=== PATIENT | male | born 1950 | race Caucasian/White ===

== ENCOUNTER 2017-10-06 14:20 | Inpatient (IN) | payer MEDICARE ==
--- NOTE | 2017-10-06 15:14 | EDM.PDOC ---
ED HPI GENERAL MEDICAL PROBLEM - General Chief Complaint: Lower Extremity Injury/Pain Stated Complaint: RIGHT LEG PAIN Time Seen by Provider: 10/06/17 15:13 Source of Information: Reports: Patient History Limitations: Reports: No Limitations - History of Present Illness INITIAL COMMENTS - FREE TEXT/NARRATIVE: pt had a open heart done on Sep 25. His left leg has been swollen and he is super sensitive at the ankle level. He has been feeling lite headed sob and very weak. he has noted some black tarry stools present. Onset: Gradual Duration: Day(s):, Waxing/Waning Location: Reports: Lower Extremity, Left Associated Symptoms: Reports: Malaise, Shortness of Breath, Other ( some epigastric pain. He has been quite dizzy. ) 4 Pain Score (Numeric/FACES): 0 - Related Data Allergies Allergy/AdvReac Type Severity Reaction Status Date / Time No Known Allergies Allergy Verified 10/06/17 14:32 Home Meds: Home Meds Lisinopril 10 mg PO DAILY 01/04/15 [History] Aspirin [Halfprin] 81 mg PO DAILY 07/05/17 [History] Clopidogrel [Plavix] 75 mg PO DAILY 07/05/17 [History] Nitroglycerin [Nitrostat] 0.4 mg SL ASDIRECTED PRN 07/05/17 [History] Albuterol Sulfate [Ventolin Hfa] 2 puff INH Q4HR PRN 10/06/17 [History] Amiodarone [Cordarone] 1 tab PO DAILY 10/06/17 [History] Clopidogrel Bisulfate [Clopidogrel] 1 tab PO DAILY 10/06/17 [History] Hydrocodone/Acetaminophen [Hydrocodon-Acetaminophn 10-325] 1 tab PO Q4HR PRN [History] Metoclopramide HCl 1 tab PO DAILY 10/06/17 [History] Metoprolol Tartrate [Metoprolol Tartrate] 1 tab PO DAILY 10/06/17 [History] Past Medical History Respiratory History: Reports: COPD, Pneumothorax - Past Surgical History Cardiovascular Surgical History: Reports: Coronary Artery Bypass, Coronary Artery Stent Musculoskeletal Surgical History: Reports: Arthroscopic Knee, Shoulder Surgery Social & Family History - Tobacco Use Smoking Status *Q: Never Smoker Years of Tobacco use: 40 - Alcohol Use Days Per Week of Alcohol Use: 0 - Recreational Drug Use Recreational Drug Use: No Review of Systems - Review of Systems Review Of Systems: See Below Constitutional: Reports: No Symptoms Eyes: Reports: No Symptoms Ears: Reports: No Symptoms Nose: Reports: No Symptoms Mouth/Throat: Reports: No Symptoms Respiratory: Reports: Shortness of Breath Cardiovascular: Reports: Lightheadedness, Palpitations GI/Abdominal: Reports: No Symptoms Genitourinary: Reports: No Symptoms Musculoskeletal: Reports: No Symptoms, Other ( pain in left leg and super sensitive at the left ankle level. ) Skin: Reports: No Symptoms Neurological: Reports: No Symptoms Psychiatric: Reports: No Symptoms ED EXAM, GENERAL - Physical Exam Exam: See Below Free Text/Narrative:: Pt is pale and has alot of weakness. He is sob. Exam Limited By: No Limitations General Appearance: Alert, Anxious, Mild Distress Ears: Normal TMs Nose: Normal Inspection Throat/Mouth: Normal Inspection Head: Atraumatic Neck: Normal Inspection Respiratory/Chest: No Respiratory Distress Cardiovascular: Regular Rate, Rhythm, Tachycardia GI/Abdominal: Soft, Tender, Other ( Pt has mild tenderness in the epigastric area. ) (Male) Exam: Deferred Rectal (Males) Exam: Deferred Back Exam: Normal Inspection Extremities: Other ( left leg shows mild swelling and he is uper sensitive at the ankle level. ) Neurological: Alert, Oriented, Normal Cognition Psychiatric: Normal Affect Course - Vital Signs Last Recorded V/S: Last Vital Signs Temp 36.4 C 10/07/17 01:56 Pulse 68 10/06/17 14:45 Resp 19 10/07/17 06:00 BP 116/38 L 10/07/17 06:00 Pulse Ox 93 L 10/07/17 06:00 - Orders/Labs/Meds Orders: Active Orders 24 hr Category Date Time Status Chest 2V [CR] Stat Exams 10/06/17 15:11 Taken VL Duplex Lwr Ext Veins Ltd Lt [US] Stat Exams 10/06/17 16:18 Stop Req VL Duplex Lwr Ext Veins Ltd Rt [US] Stat Exams 10/06/17 15:12 Taken BLOOD BANK HOLD SPECIMEN [BBK] Stat Lab 10/06/17 15:20 Results PATIENT RETYPE [BBK] Stat Lab 10/06/17 15:20 Results RED BLOOD CELLS LP [BBK] Stat Lab 10/06/17 15:20 Results TYPE AND SCREEN [BBK] Stat Lab 10/06/17 15:20 Results Pantoprazole [ProTONIX IV] 80 mg Med 10/06/17 18:00 Active Sodium Chloride 0.9% [Normal Saline] 100 ml IV ASDIRECTED Medication Orders Acetaminophen (Tylenol) 650 mg PO Q4H PRN PRN Reason: Pain (Mild 1-3)/fever Hydrocodone Bitart/Acetaminophen ([place] 325-5 Mg) 2 tab PO Q4H PRN PRN Reason: Pain (moderate 4-6) Albuterol (Ventolin Hfa) 0 gm INH Q4H PRN PRN Reason: Shortness of Breath Albuterol (Proventil Neb Soln) 2.5 mg NEB Q4H PRN PRN Reason: Shortness Of Breath/wheezing Last Admin: 10/07/17 04:47 Dose: 2.5 mg Admin: 10/07/17 04:20 Dose: 2.5 mg Amiodarone HCl (Cordarone) 200 mg PO DAILY [facility] Aspirin (Halfprin) 81 mg PO DAILY [facility] Clopidogrel Bisulfate (Plavix) 75 mg PO DAILY [facility] Pantoprazole Sodium 80 mg/ (Sodium Chloride) 100 mls @ 10 mls/hr IV ASDIRECTED [facility] Stop: 10/07/17 14:00 Last Admin: 10/07/17 04:33 Dose: 10 mls/hr Infusion: 10/07/17 04:33 Dose: 10 mls/hr Admin: 10/06/17 18:39 Dose: 10 mls/hr Sodium Chloride (Normal Saline) 1,000 mls @ 125 mls/hr IV ASDIRECTED [facility] Last Admin: 10/07/17 04:23 Dose: 125 mls/hr Infusion: 10/07/17 04:23 Dose: 125 mls/hr Admin: 10/06/17 20:26 Dose: 125 mls/hr Pantoprazole Sodium 80 mg/ (Sodium Chloride) 100 mls @ 10 mls/hr IV .Q10H [facility] Lorazepam (Ativan) 0.5 mg IVPUSH Q2H PRN PRN Reason: Anxiety Last Admin: 10/06/17 22:28 Dose: 0.5 mg Admin: 10/06/17 20:27 Dose: 0.5 mg Metoclopramide HCl (Reglan) 10 mg PO DAILY [facility] Metoprolol Tartrate (Lopressor) 50 mg PO DAILY [facility] Nitroglycerin (Nitrostat) 0.4 mg SL Q5M PRN PRN Reason: Chest Pain Ondansetron HCl (Zofran) 4 mg IV Q4H PRN PRN Reason: Nausea/Vomiting Sodium Chloride (Saline Flush) 10 ml FLUSH ASDIRECTED PRN PRN Reason: Keep Vein Open Labs: Laboratory Tests 10/06/17 10/06/17 10/06/17 Range/Units 15:20 15:22 15:22 WBC 12.7 H (4.5-11.0) K/uL RBC 1.91 L (4.30-5.90) M/uL Hgb 6.4 L* D (12.0-15.0) g/dL Hct 20.5 L (40.0-54.0) % MCV 107 H (80-98) fL MCH 34 H (27-31) pg MCHC 31 L (32-36) % Plt Count 340 (150-400) K/uL Neut % (Auto) 66 (36-66) % Lymph % (Auto) 18 L (24-44) % [place] % (Auto) 13 H (2-6) % Eos % (Auto) 4 (2-4) % Baso % (Auto) 0 (0-1) % Sodium 137 L (140-148) mmol/L Potassium 4.0 (3.6-5.2) mmol/L Chloride 103 (100-108) mmol/L Carbon Dioxide 28 (21-32) mmol/L Anion Gap 10.0 (5.0-14.0) mmol/L BUN 18 (7-18) mg/dL Creatinine 1.3 (0.8-1.3) mg/dL Est Cr Clr Drug Dosing 62.18 mL/min Estimated GFR (MDRD) 55 L (>60) Glucose 122 H (74-106) mg/dL Calcium 8.2 L (8.5-10.1) mg/dL Blood Type O POSITIVE Gel Antibody Screen Negative Crossmatch See Detail Meds: Medications Generic Name Dose Route Start Last Admin Trade Name Freq PRN Reason Stop Dose Admin Acetaminophen 650 mg 10/06/17 19:02 Tylenol PO Q4H PRN Pain (Mild 1-3)/fever Hydrocodone Bitart/Acetaminophen 2 tab 10/06/17 19:02 [place] 325-5 Mg PO Q4H PRN Pain (moderate 4-6) Albuterol 0 gm 10/06/17 19:02 Ventolin Hfa INH Q4H PRN Shortness of Breath Albuterol 2.5 mg 10/06/17 19:02 10/07/17 04:47 Proventil Neb Soln NEB 2.5 mg Q4H PRN Administration Shortness Of Breath/wheezing Amiodarone HCl 200 mg 10/07/17 09:00 Cordarone PO DAILY [facility] Aspirin 81 mg 10/07/17 09:00 Halfprin PO DAILY [facility] Clopidogrel Bisulfate 75 mg 10/07/17 09:00 Plavix PO DAILY [facility] Pantoprazole Sodium 80 mg/ 100 mls @ 10 mls/hr 10/06/17 18:00 10/07/17 04:33 Sodium Chloride IV 10/07/17 14:00 10 mls/hr ASDIRECTED HARESH Administration Sodium Chloride 1,000 mls @ 125 mls/hr 10/06/17 19:02 10/07/17 04:23 Normal Saline IV 125 mls/hr ASDIRECTED [facility] Administration Pantoprazole Sodium 80 mg/ 100 mls @ 10 mls/hr 10/07/17 14:30 Sodium Chloride IV .Q10H [facility] Lorazepam 0.5 mg 10/06/17 20:12 10/06/17 22:28 Ativan IVPUSH 0.5 mg Q2H PRN Administration Anxiety Metoclopramide HCl 10 mg 10/07/17 09:00 Reglan PO DAILY [facility] Metoprolol Tartrate 50 mg 10/07/17 09:00 Lopressor PO DAILY [facility] Nitroglycerin 0.4 mg 10/06/17 19:02 Nitrostat SL Q5M PRN Chest Pain Ondansetron HCl 4 mg 10/06/17 19:02 Zofran IV Q4H PRN Nausea/Vomiting Sodium Chloride 10 ml 10/06/17 19:02 Saline Flush FLUSH ASDIRECTED PRN Keep Vein Open Discontinued Medications Generic Name Dose Route Start Last Admin Trade Name Freq PRN Reason Stop Dose Admin Sodium Chloride 1,000 mls @ 500 mls/hr 10/06/17 17:30 10/06/17 18:22 Normal Saline IV 500 mls/hr ASDIRECTED HARESH Administration Pantoprazole Sodium 40 mg 10/06/17 17:25 10/06/17 18:22 Protonix Iv IVPUSH 10/06/17 17:26 40 mg ONETIME ONE Administration Pantoprazole Sodium 40 mg 10/06/17 18:00 10/06/17 18:22 Protonix Iv IVPUSH 10/06/17 18:01 Not Given ONETIME ONE - Re-Assessments/Exams Free Text/Narrative Re-Assessment/Exam: 10/06/17 17:54 pt had an US of his left leg which was neg. His hg was found to be 6.4. His stool hemmocult was pos. He has not been having regular bms since he got home. His chest xray shows chronic changes. Departure - Departure Time of Disposition: 17:55 Disposition: Admitted As Inpatient 68 Condition: Fair Clinical Impression: Anemia, GI bleeding, History of open heart surgery - Discharge Information - My Orders Last 24 Hours: My Active Orders 10/06/17 15:11 Chest 2V [CR] Stat 10/06/17 15:12 VL Duplex Lwr Ext Veins Ltd Rt [US] Stat 10/06/17 15:20 BLOOD BANK HOLD SPECIMEN [BBK] Stat PATIENT RETYPE [BBK] Stat RED BLOOD CELLS LP [BBK] Stat TYPE AND SCREEN [BBK] Stat 10/06/17 16:18 VL Duplex Lwr Ext Veins Ltd Lt [US] Stat - Assessment/Plan Last 24 Hours: My Active Orders 10/06/17 15:11 Chest 2V [CR] Stat 10/06/17 15:12 VL Duplex Lwr Ext Veins Ltd Rt [US] Stat 10/06/17 15:20 BLOOD BANK HOLD SPECIMEN [BBK] Stat PATIENT RETYPE [BBK] Stat RED BLOOD CELLS LP [BBK] Stat TYPE AND SCREEN [BBK] Stat 10/06/17 16:18 VL Duplex Lwr Ext Veins Ltd Lt [US] Stat
[2017-10-06] MEDS ORDERED: Sodium Chloride 0.9% 1,000 ML IV SCH (17:30)
[2017-10-06] MEDS ORDERED: Pantoprazole 40 MG Vial IVPUSH ONE (18:00)
[2017-10-06] MEDS: Pantoprazole 40 MG Vial IVPUSH ONE ×2 (18:21→18:22)
[2017-10-06] MEDS: Pantoprazole 80 MG in Sodium Chloride 0.9% 100 ML IV SCH (18:39)
--- NOTE | 2017-10-06 18:55 | PCM.HP ---
H&P History of Present Illness - General Date of Service: 10/06/17 Admit Problem/Dx: Admission Diagnosis/Problem Admission Diagnosis/Problem Bleeding Source of Information: Patient, Family, Provider, RN Notes Reviewed History Limitations: Reports: No Limitations - History of Present Illness Initial Comments - Free Text/Narative: This patient is a 67-year-old gentleman who is admitted through the emergency department to the intensive care unit with upper GI bleed and acute blood loss anemia. He underwent coronary artery bypass surgery 11 days ago in [place]. Postoperative course complicated by pneumothorax. He was discharged to home 2 days ago and since then has noted ongoing difficulty with weakness, shortness of breath, and lightheadedness. He's noted upper abdominal epigastric discomfort described as an ache. He has been on Plavix and aspirin even prior to his surgery. He denies any prior history of GI bleeding or previous ulcer disease. - Related Data Allergies/Adverse Reactions: Allergies Allergy/AdvReac Type Severity Reaction Status Date / Time No Known Allergies Allergy Verified 10/06/17 14:32 Home Medications: Home Meds Lisinopril 10 mg PO DAILY 01/04/15 [History] Aspirin [Halfprin] 81 mg PO DAILY 07/05/17 [History] Clopidogrel [Plavix] 75 mg PO DAILY 07/05/17 [History] Nitroglycerin [Nitrostat] 0.4 mg SL ASDIRECTED PRN 07/05/17 [History] Albuterol Sulfate [Ventolin Hfa] 2 puff INH Q4HR PRN 10/06/17 [History] Amiodarone [Cordarone] 1 tab PO DAILY 10/06/17 [History] Clopidogrel Bisulfate [Clopidogrel] 1 tab PO DAILY 10/06/17 [History] Hydrocodone/Acetaminophen [Hydrocodon-Acetaminophn 10-325] 1 tab PO Q4HR PRN [History] Metoclopramide HCl 1 tab PO DAILY 10/06/17 [History] Metoprolol Tartrate [Metoprolol Tartrate] 1 tab PO DAILY 10/06/17 [History] Past Medical History Respiratory History: Reports: COPD, Pneumothorax - Past Surgical History Cardiovascular Surgical History: Reports: Coronary Artery Bypass, Coronary Artery Stent Musculoskeletal Surgical History: Reports: Arthroscopic Knee, Shoulder Surgery Social & Family History - Tobacco Use Smoking Status *Q: Never Smoker Years of Tobacco use: 40 - Alcohol Use Days Per Week of Alcohol Use: 0 - Recreational Drug Use Recreational Drug Use: No H&P Review of Systems - Review of Systems: Review Of Systems: See Below General: Reports: Weakness, Decreased Appetite. Denies: Fever, Chills HEENT: Reports: No Symptoms Pulmonary: Reports: Shortness of Breath. Denies: Wheezing, Pleuritic Chest Pain , Cough, Sputum, Hemoptysis Cardiovascular: Reports: Dyspnea on Exertion, Lightheadedness. Denies: Chest Pain, Palpitations, Orthopnea, PND, Edema, Syncope Gastrointestinal: Reports: Abdominal Pain, Black Stool, Decreased Appetite, Nausea. Denies: Bloody Stool, Constipation, Diarrhea, Difficulty Swallowing, Distension, Vomiting Genitourinary: Reports: No Symptoms Musculoskeletal: Reports: Leg Pain. Denies: Back Pain Skin: Reports: No Symptoms Psychiatric: Reports: No Symptoms Neurological: Reports: No Symptoms Hematologic/Lymphatic: Reports: No Symptoms Immunologic: Reports: No Symptoms Exam - Exam Exam: See Below - Vital Signs Vital Signs: Last Vital Signs Temp 97.9 F 10/06/17 14:45 Pulse 68 10/06/17 14:45 Resp 14 10/06/17 14:45 BP 99/46 L 10/06/17 14:45 Pulse Ox 95 10/06/17 14:45 Weight: 220 lb - Exam Quality Assessment: DVT Prophylaxis General: Alert, Oriented, Cooperative, Moderate Distress HEENT: Conjunctiva Clear, Hearing Intact, Mucosa Moist & [place], Normal Nasal Septum, Posterior Pharynx Clear, Pupils Equal Neck: Supple, Trachea Midline, +2 Carotid Pulse wo Bruit Lungs: Normal Respiratory Effort, Decreased Breath Sounds. No: Crackles, Rales , Rhonchi, Rub, Stridor, Wheezing Cardiovascular: Regular Rate, Regular Rhythm, Normal S1, Normal S2. No: Systolic Murmur, Diastolic Murmur GI/Abdominal Exam: Normal Bowel Sounds, Soft, No Organomegaly, Tender. No: Distended, Guarding, Rigid, Rebound Back Exam: Normal Inspection, Full Range of Motion Extremities: Non-Tender, No Pedal Edema Skin: Warm, Dry, Intact Neurological: Cranial Nerves Intact, Strength Equal Bilateral, Normal Speech, Normal Tone, Sensation Intact. No: Focal Deficit Neuro Extensive - Mental Status: Alert, Oriented x3, Normal Mood/Affect, Normal Cognition, Memory Intact - Patient Data Lab Results Last 24 hrs: Laboratory Results - last 24 hr 10/06/17 10/06/17 10/06/17 Range/Units 15:20 15:22 15:22 WBC 12.7 H (4.5-11.0) K/uL RBC 1.91 L (4.30-5.90) M/uL Hgb 6.4 L* D (12.0-15.0) g/dL Hct 20.5 L (40.0-54.0) % MCV 107 H (80-98) fL MCH 34 H (27-31) pg MCHC 31 L (32-36) % Plt Count 340 (150-400) K/uL Neut % (Auto) 66 (36-66) % Lymph % (Auto) 18 L (24-44) % [place] % (Auto) 13 H (2-6) % Eos % (Auto) 4 (2-4) % Baso % (Auto) 0 (0-1) % Sodium 137 L (140-148) mmol/L Potassium 4.0 (3.6-5.2) mmol/L Chloride 103 (100-108) mmol/L Carbon Dioxide 28 (21-32) mmol/L Anion Gap 10.0 (5.0-14.0) mmol/L BUN 18 (7-18) mg/dL Creatinine 1.3 (0.8-1.3) mg/dL Est Cr Clr Drug Dosing 62.18 mL/min Estimated GFR (MDRD) 55 L (>60) Glucose 122 H (74-106) mg/dL Calcium 8.2 L (8.5-10.1) mg/dL Blood Type O POSITIVE Gel Antibody Screen Negative Crossmatch See Detail Result Diagrams: 10/06/17 15:22 10/06/17 15:22 Luiz Results Last 24 hrs: Microbiology 10/06/17 17:12 Stool Occult Blood (LUIZ) - Final Stool / Feces *Q Meaningful Use (ADM) - VTE *Q VTE Criteria *Q: VTE Pharmacological Contraindications *Q: Active Hemorrhage - VTE Risk Assess *Q Each Risk Factor Represents 1 Point: Obesity ( BMI > 25 kg/m2) Total Score 1 Point Risk Factors: 1 Each Risk Factor Represents 2 Points: Age 60 - 74 Years Total Score 2 Point Risk Factors: 2 Each Risk Factor Represents 3 Points: None Total Score 3 Point Risk Factors: 0 Each Risk Factor Represents 5 Points: None Total Score 5 Point Risk Factors: 0 Venous Thromboembolism Risk Factor Score *Q: 3 - Stroke *Q Stroke Criteria *Q: - AMI *Q AMI Criteria *Q: Problem List Initiated/Reviewed/Updated: Yes Orders Last 24hrs: Active Orders 24 hr Category Date Time Status Patient Status Manage Transfer [TRANSFER] Routine ADT 10/06/17 18:34 Active Chest 2V [CR] Stat Exams 10/06/17 15:11 Taken VL Duplex Lwr Ext Veins Ltd Lt [US] Stat Exams 10/06/17 16:18 Ordered VL Duplex Lwr Ext Veins Ltd Rt [US] Stat Exams 10/06/17 15:12 Taken BLOOD BANK HOLD SPECIMEN [BBK] Stat Lab 10/06/17 15:20 Results PATIENT RETYPE [BBK] Stat Lab 10/06/17 15:20 Results RED BLOOD CELLS LP [BBK] Stat Lab 10/06/17 15:20 Results TYPE AND SCREEN [BBK] Stat Lab 10/06/17 15:20 Results Pantoprazole [ProTONIX IV] 80 mg Med 10/06/17 18:00 Active Sodium Chloride 0.9% [Normal Saline] 100 ml IV ASDIRECTED Sodium Chloride 0.9% [Normal Saline] 1,000 ml Med 10/06/17 17:30 Active IV ASDIRECTED Resuscitation Status Routine Resus Stat 10/06/17 18:36 Ordered Medication Orders Sodium Chloride (Normal Saline) 1,000 mls @ 500 mls/hr IV ASDIRECTED [facility] Last Admin: 10/06/17 18:22 Dose: 500 mls/hr Pantoprazole Sodium 80 mg/ (Sodium Chloride) 100 mls @ 10 mls/hr IV ASDIRECTED [facility] Last Admin: 10/06/17 18:39 Dose: 10 mls/hr Assessment/Plan Comment:: ASSESSMENT AND PLAN UPPER GI BLEED-history of melenic stool over the past several days, likely related to stress ulcer from recent hospitalization and surgery. -Nothing by mouth -Protonix 80 mg IV given in ED -Continuous infusion of Protonix 8 mg per hour -Transfuse 2 units of red blood cells -Maintain 2 units of red blood cells on hold -Maintain 2 IV sites -IV fluids for hydration -Consult Dr. Alvarez for EGD in a.m. -Continue aspirin and Plavix given recent bypass surgery ACUTE BLOOD LOSS ANEMIA CORONARY ARTERY DISEASE STATUS POST CORONARY ARTERY BYPASS SURGERY-currently denies any symptoms of chest pain or pressure -Continue outpatient medical regimen COPD-stable with no evidence of acute exacerbation -Nebulized albuterol as needed -Supplemental oxygen as needed MAINTENANCE ISSUES -DVT prophylaxis; SCUDs, hold on anticoagulation given active bleed -GI prophylaxis; Protonix as above -Acevedo catheter; not indicated -Nutrition; nothing by mouth -Nicotine dependence; not required CODE STATUS-FULL CODE ADMISSION STATUS-patient will be admitted to inpatient status, expect at least a 2 night hospital stay for evaluation and management of problems as outlined above. At the time of this admission I do not reasonably expected evaluation and management of this problem will require more than a 96 hour hospital stay. DISPOSITION-anticipate discharge to home after the hospital stay. PRIMARY CARE PROVIDER-
[2017-10-06] MEDS ORDERED: Albuterol 8 GM Inhaler INH PRN (19:02)
[2017-10-06] MEDS ORDERED: Acetaminophen/HYDROcodone 325-5 MG Tab PO PRN (19:02)
[2017-10-06] MEDS ORDERED: Sodium Chloride 0.9% 10 ML Syringe FLUSH PRN (19:02)
[2017-10-06] MEDS ORDERED: Nitroglycerin 0.4 MG Tab.SL SL PRN (19:02)
[2017-10-06] MEDS ORDERED: Acetaminophen 325 MG Tab PO PRN (19:02)
[2017-10-06] MEDS ORDERED: Ondansetron 4 MG/2 ML SDV IV PRN (19:02)
[2017-10-06] MEDS: Sodium Chloride 0.9% 1,000 ML IV SCH (20:26)
[2017-10-06] MEDS: LORazepam 2 MG/ML MDV IVPUSH PRN ×2 (20:27→22:28)
[2017-10-07] MEDS: Albuterol 0.083% 2.5 MG/3 ML Neb Soln NEB PRN ×2 (04:20→04:47)
[2017-10-07] MEDS: Sodium Chloride 0.9% 1,000 ML IV SCH (04:23)
[2017-10-07] MEDS: Pantoprazole 80 MG in Sodium Chloride 0.9% 100 ML IV SCH (04:33)
[2017-10-07] MEDS ORDERED: Midazolam 1 MG/ML 2 ML SDV ONE (07:21)
[2017-10-07] MEDS ORDERED: fentaNYL 100 MCG/2 ML SDV ONE (07:21)
[2017-10-07] MEDS ORDERED: Propofol 200 MG/20 ML SDV ONE (07:22)
[2017-10-07] MEDS ORDERED: Metoprolol Tartrate 50 MG Tab PO SCH (09:00)
[2017-10-07] MEDS ORDERED: Aspirin 81 MG Tab.EC PO SCH (09:00)
[2017-10-07] MEDS ORDERED: Metoclopramide 10 MG Tab PO SCH (09:00)
[2017-10-07] MEDS ORDERED: Amiodarone 200 MG Tab PO SCH (09:00)
[2017-10-07] MEDS ORDERED: Clopidogrel 75 MG Tab PO SCH (09:00)
[2017-10-07] MEDS ORDERED: Nystatin Susp 100,000 Unit/ML 5 ML UD Cup PO SCH (10:00)
[2017-10-07 11:52] VITALS: BP 92/49
--- NOTE | 2017-10-07 13:24 | PCM.DCSUM1 ---
Discharge Summary - Hospital Course Brief History: Mr. Hill is a 67-year-old gentleman who is admitted through the emergency department with weakness, fatigue, and shortness of breath secondary to anemia related to recent upper GI bleed. - Discharge Data Discharge Date: 10/07/17 Discharge Disposition: Home, Self-Care 01 Condition: Fair - Discharge Diagnosis/Problem(s) (1) Acute blood loss anemia SNOMED Code(s): 771841014 ICD Code: D62 - ACUTE POSTHEMORRHAGIC ANEMIA Status: Acute Current Visit : Yes (2) Duodenal ulcer SNOMED Code(s): 05305888 ICD Code: K26.9 - DUODENAL ULCER, UNSP ACUTE OR CHRONIC, W/O HEMOR OR PERF Status: Acute Current Visit: Yes (3) Upper GI hemorrhage SNOMED Code(s): 93171875 ICD Code: K92.2 - GASTROINTESTINAL HEMORRHAGE, UNSPECIFIED Status: Acute Current Visit: Yes (4) Coronary arteriosclerosis, CAD SNOMED Code(s): 47920187 ICD Code: I25.10 - ATHSCL HEART DISEASE OF [place] CORONARY ARTERY W/O ANG PCTRS Status: Chronic Current Visit: No (5) Candidal esophagitis SNOMED Code(s): 74927457 ICD Code: B37.81 - CANDIDAL ESOPHAGITIS Status: Acute Current Visit: Yes - Patient Summary/Data Consults: Consultations 10/06/17 19:02 Consult to Physician [CONS] Routine Consulting Provider: Hugh Alvarezesy Call Completed to Consulting Physician: Yes Reason for Consult: Upper GI bleed, EGD in a.m. Hospital Course: Mr. Hill is a 67-year-old gentleman who presented to the emergency room with a recent history of weakness, shortness of breath, lightheadedness. he had undergone coronary artery bypass surgery approximately 11 days prior to admission, hospital course was complicated by a left pneumothorax. Prior to admission he had noted melenic stools and then developed symptoms of significant weakness and lightheadedness. Appetite was poor and he was experiencing symptoms of epigastric abdominal discomfort. Hemoglobin level was obtained and found to be severely low at 6.4. He was felt to have a probable recent upper GI bleed resulting in low hemoglobin and current symptoms. He denied symptoms of chest pain or pressure at the time of admission. He was given 80 mg bolus of IV Protonix followed by continuous infusion of Protonix at 8 mg per hour. He was given IV fluids for hydration and transfused 2 units of red blood cells. 2 IV sites were started and maintained during the hospital stay. Serial hemoglobin levels were ordered, follow-up hemoglobin after transfusion had increased to 7.6 and he was transfused one additional unit of red blood cells. He was seen for surgical consult Dr. Alvarez on the morning after admission and it EGD was performed. EGD showed evidence of a duodenal ulcer as well as candidal esophagitis. He was started on nystatin 5 mL every 6 hours. Was recommended to the patient that he stay at least one additional day for further monitoring and follow-up of hemoglobin levels. He refused this recommendation and asked to be discharged following the EGD. Last hemoglobin level obtained prior to discharge was 9.4. He will be discharged on the nystatin as well as oral Protonix 40 mg twice daily. He already has a follow-up appointment pending with Dr. Woodward at [facility] in [facility]. Follow-up appointment will be scheduled with his primary care provider Dianelys multani within a few days, hemoglobin level should be obtained at the time of follow-up appointments. Activity will be as tolerated he is encouraged to follow mainly liquid diet over the next few days and then switch to soft low residue food. Instructions were given to avoid caffeine as well as acidic foods. - Patient Instructions Diet: No Alcoholic Beverages, GI Soft/Low Residue/Low Fiber Activity: As Tolerated Other/Special Instructions: Please schedule follow-up appointment with Dianelys Multani within one week. - Discharge Plan Prescriptions/Med Rec: Nystatin [Mycostatin] 5 ml PO QID #200 ml Pantoprazole Sodium [Protonix] 40 mg PO BID #30 tablet. Home Medications: Home Meds Lisinopril 10 mg PO DAILY 01/04/15 [History] Aspirin [Halfprin] 81 mg PO DAILY 07/05/17 [History] Clopidogrel [Plavix] 75 mg PO DAILY 07/05/17 [History] Nitroglycerin [Nitrostat] 0.4 mg SL ASDIRECTED PRN 07/05/17 [History] Albuterol Sulfate [Ventolin Hfa] 2 puff INH Q4HR PRN 10/06/17 [History] Amiodarone [Cordarone] 1 tab PO DAILY 10/06/17 [History] Clopidogrel Bisulfate [Clopidogrel] 1 tab PO DAILY 10/06/17 [History] Hydrocodone/Acetaminophen [Hydrocodon-Acetaminophn 10-325] 1 tab PO Q4HR PRN [History] Metoclopramide HCl 1 tab PO DAILY 10/06/17 [History] Metoprolol Tartrate 1 tab PO DAILY 10/06/17 [History] Nystatin [Mycostatin] 5 ml PO QID #200 ml 10/07/17 [Rx] Pantoprazole Sodium [Protonix] 40 mg PO BID #30 tablet. 10/07/17 [Rx] Forms: ED Department Discharge Referrals: Nat Woodward MD [Primary Care Provider] - - Patient Data Vitals - Most Recent: Last Vital Signs Temp 98.6 F 10/07/17 11:46 Pulse 58 L 10/07/17 11:46 Resp 18 10/07/17 11:46 BP 92/49 L 10/07/17 11:46 Pulse Ox 94 L 10/07/17 11:46 Weight - Most Recent: 223 lb 12.8 oz I&O - Last 24 hours: Intake & Output 10/06/17 10/07/17 10/07/17 22:59 06:59 14:59 Intake Total 120 2614 Output Total 350 325 Balance 120 2264 -325 Lab Results - Last 24 hrs: Laboratory Results - last 24 hr 10/06/17 10/07/17 10/07/17 Range/Units 23:35 04:30 04:30 WBC 10.5 (4.5-11.0) K/uL RBC 2.75 L (4.30-5.90) M/uL Hgb 7.6 L 8.9 L (12.0-15.0) g/dL Hct 26.9 L (40.0-54.0) % MCV 98 (80-98) fL MCH 32 H (27-31) pg MCHC 33 (32-36) % Plt Count 297 (150-400) K/uL Neut % (Auto) 66 (36-66) % Lymph % (Auto) 21 L (24-44) % [place] % (Auto) 10 H (2-6) % Eos % (Auto) 4 (2-4) % Baso % (Auto) 0 (0-1) % Sodium 141 (140-148) mmol/L Potassium 3.8 (3.6-5.2) mmol/L Chloride 107 (100-108) mmol/L Carbon Dioxide 27 (21-32) mmol/L Anion Gap 6.7 (5.0-14.0) mmol/L BUN 14 (7-18) mg/dL Creatinine 1.2 (0.8-1.3) mg/dL Est Cr Clr Drug Dosing 65.36 mL/min Estimated GFR (MDRD) > 60 (>60) Glucose 100 (74-106) mg/dL Calcium 7.6 L (8.5-10.1) mg/dL 10/07/17 Range/Units 11:00 WBC (4.5-11.0) K/uL RBC (4.30-5.90) M/uL Hgb 9.4 L (12.0-15.0) g/dL Hct (40.0-54.0) % MCV (80-98) fL MCH (27-31) pg MCHC (32-36) % Plt Count (150-400) K/uL Neut % (Auto) (36-66) % Lymph % (Auto) (24-44) % [place] % (Auto) (2-6) % Eos % (Auto) (2-4) % Baso % (Auto) (0-1) % Sodium (140-148) mmol/L Potassium (3.6-5.2) mmol/L Chloride (100-108) mmol/L Carbon Dioxide (21-32) mmol/L Anion Gap (5.0-14.0) mmol/L BUN (7-18) mg/dL Creatinine (0.8-1.3) mg/dL Est Cr Clr Drug Dosing mL/min Estimated GFR (MDRD) (>60) Glucose (74-106) mg/dL Calcium (8.5-10.1) mg/dL Med Orders - Current: Current Medications Acetaminophen (Tylenol) 650 mg PO Q4H PRN PRN Reason: Pain (Mild 1-3)/fever Hydrocodone Bitart/Acetaminophen ([place] 325-5 Mg) 2 tab PO Q4H PRN PRN Reason: Pain (moderate 4-6) Albuterol (Ventolin Hfa) 0 gm INH Q4H PRN PRN Reason: Shortness of Breath Albuterol (Proventil Neb Soln) 2.5 mg NEB Q4H PRN PRN Reason: Shortness Of Breath/wheezing Last Admin: 10/07/17 04:47 Dose: 2.5 mg Amiodarone HCl (Cordarone) 200 mg PO DAILY [facility] Last Admin: 10/07/17 10:06 Dose: 200 mg Aspirin (Halfprin) 81 mg PO DAILY [facility] Last Admin: 10/07/17 10:08 Dose: 81 mg Clopidogrel Bisulfate (Plavix) 75 mg PO DAILY [facility] Last Admin: 10/07/17 10:08 Dose: 75 mg Pantoprazole Sodium 80 mg/ (Sodium Chloride) 100 mls @ 10 mls/hr IV ASDIRECTED [facility] Stop: 10/07/17 14:00 Last Admin: 10/07/17 04:33 Dose: 10 mls/hr Pantoprazole Sodium 80 mg/ (Sodium Chloride) 100 mls @ 10 mls/hr IV .Q10H [facility] Lorazepam (Ativan) 0.5 mg IVPUSH Q2H PRN PRN Reason: Anxiety Last Admin: 10/06/17 22:28 Dose: 0.5 mg Metoclopramide HCl (Reglan) 10 mg PO DAILY [facility] Last Admin: 10/07/17 10:07 Dose: 10 mg Metoprolol Tartrate (Lopressor) 50 mg PO DAILY [facility] Last Admin: 10/07/17 10:06 Dose: 50 mg Nitroglycerin (Nitrostat) 0.4 mg SL Q5M PRN PRN Reason: Chest Pain Nystatin (Mycostatin) 5 ml PO QID [facility] Last Admin: 10/07/17 11:15 Dose: 5 ml Ondansetron HCl (Zofran) 4 mg IV Q4H PRN PRN Reason: Nausea/Vomiting Sodium Chloride (Saline Flush) 10 ml FLUSH ASDIRECTED PRN PRN Reason: Keep Vein Open Discontinued Medications Fentanyl (Sublimaze) Confirm Administered Dose 100 mcg .ROUTE .ST-MED ONE Stop: 10/07/17 07:22 Sodium Chloride (Normal Saline) 1,000 mls @ 500 mls/hr IV ASDIRECTED [facility] Last Admin: 10/06/17 18:22 Dose: 500 mls/hr Sodium Chloride (Normal Saline) 1,000 mls @ 125 mls/hr IV ASDIRECTED [facility] Last Admin: 10/07/17 04:23 Dose: 125 mls/hr Midazolam HCl (Versed 1 Mg/Ml) Confirm Administered Dose 2 mg .ROUTE .STK-MED ONE Stop: 10/07/17 07:22 Pantoprazole Sodium (Protonix Iv) 40 mg IVPUSH ONETIME ONE Stop: 10/06/17 17:26 Last Admin: 10/06/17 18:22 Dose: 40 mg Pantoprazole Sodium (Protonix Iv) 40 mg IVPUSH ONETIME ONE Stop: 10/06/17 18:01 Last Admin: 10/06/17 18:22 Dose: Not Given Propofol (Diprivan 20 Ml) Confirm Administered Dose 200 mg .ROUTE .STK-MED ONE Stop: 10/07/17 07:23 *Q Meaningful Use (DIS) - VTE *Q VTE Criteria *Q: VTE Pharmacological Contraindications *Q: Active Hemorrhage - Stroke *Q Stroke Criteria *Q: - AMI *Q AMI Criteria *Q:
[2017-10-07] MEDS ORDERED: Sodium Chloride 0.9% 100 ML with Pantoprazole 80 MG IV SCH ×2 (14:30)
--- NOTE | 2017-10-08 09:20 | CR ---
Chest 2V HISTORY: Shortness of breath COMPARISON: 01/04/2015. FINDINGS: Prior median sternotomy. There is hyperinflation. Tiny bilateral pleural effusions. No acut e congestive change. Mild cardiomegaly. No focal infiltrates.
--- NOTE | 2017-10-08 09:21 | US ---
VL Duplex Lwr Ext Veins Ltd Rt HISTORY: Pain, swelling. FINDINGS: The deep veins of the right lower extremity demonstrate normal augmentation and compressibi lity. No evidence for deep venous thrombosis. IMPRESSION: Normal lower extremity venous Doppler study.
--- NOTE | 2017-10-08 13:40 | OR ---
DATE OF PROCEDURE: 10/07/2017 PREOPERATIVE DIAGNOSIS: Probable upper gastrointestinal bleeding. POSTOPERATIVE DIAGNOSES: 1. Probable recent upper gastrointestinal bleeding associated with large duodenal ulcer. 2. Esophageal fungal overgrowth. OPERATIVE PROCEDURE: Esophagogastroduodenoscopy with biopsies of antrum for CLOtest. ANESTHESIA: IV sedation. INDICATIONS FOR PROCEDURE: A 67-year-old, who is 12 days status post coronary artery bypass graft, presenting with some black stools and hemoglobin in the 6 range. The patient received 3 units of packed RBCs overnight and is undergoing upper endoscopy for diagnostic purposes. Potential risks including bleeding and perforation were discussed, and the patient wishes to proceed. DETAILS OF PROCEDURE: The patient was taken to the operating room and placed in the left lateral decubitus position. IV sedation was administered, after which the upper GI endoscope was passed orally through the length of the esophagus, into the stomach, and then into the proximal duodenum. Findings included some generalized fungal overgrowth within the esophageal body and extending down into the EG junction. Otherwise, there is no significant esophagogastric junction inflammation. The stomach likewise had very minimal inflammation even in the pre- pyloric area; however, as one passed through the pylorus, the patient was noted to have a quite large anterior duodenal ulcer. This was presently covered with fibrinous exudate with no blood or active bleeding seen, and at that point, the scope was withdrawn back into the antrum, where biopsies were obtained for CLOtest for H. pylori. No significant bleeding was noted from the biopsy site, and the scope was then withdrawn and the patient taken to the recovery room in satisfactory condition. The plan will be to continue the PPI management per Dr. Nobles. We will also add Mycostatin swish and swallow 5 mL p.o. q.i.d. for the fungal overgrowth within the esophagus, and begin a full liquid diet and advancing to soft solids as tolerated. Hugh Alvarez MD /[id number]
== END 2017-10-07 14:17 | disposition home or self-care (01) | DRG 378 ==
LOC: JP.ED 14:20 → JP.ICU 18:34
PROVIDERS: ADMIT Hospitalist; ATTEND Hospitalist
PROC: 30233N1 Transfusion of Nonautologous Red Blood Cells into Peripheral Vein, Percutaneous Approach (ICD-10-PCS; principal; 2017-10-06)
PROC: 0DB68ZX Excision of Stomach, Via Natural or Artificial Opening Endoscopic, Diagnostic (ICD-10-PCS; 2017-10-07)
DX: K92.2 Gastrointestinal hemorrhage, unspecified (principal); D62 Acute posthemorrhagic anemia; B37.81 Candidal esophagitis; I25.10 Atherosclerotic heart disease of native coronary artery without angina pectoris; R53.1 Weakness; M79.605 Pain in left leg; R42 Dizziness and giddiness; J44.9 Chronic obstructive pulmonary disease, unspecified; K26.9 Duodenal ulcer, unspecified as acute or chronic, without hemorrhage or perforation; Z95.1 Presence of aortocoronary bypass graft; Z95.5 Presence of coronary angioplasty implant and graft; Z79.82 Long term (current) use of aspirin
CPT/HCPCS: 36415; 71020 ×2; 80048; 82272; 85025; 86850; 86900; 86901; 86920 ×2; 86922 ×2; 93971 ×2; 96374; 99285; C9113 ×2; J7040; 36430; 85018; 87081; 99284; A9270-GY; J2060; J2250; J2704; J3010; J7030; P9016

== ENCOUNTER 2017-11-26 11:44 | Inpatient (IN) | payer MEDICARE ==
[2017-11-26] MEDS ORDERED: Albuterol/Ipratropium 3.0-0.5 MG/3 ML Neb Soln NEB ONE (12:06)
--- NOTE | 2017-11-26 12:15 | EDM.PDOC ---
ED HPI GENERAL MEDICAL PROBLEM - General Chief Complaint: Respiratory Problem Stated Complaint: SHORTNESS OF BREATH Time Seen by Provider: 11/26/17 11:50 Source of Information: Reports: Patient, Family History Limitations: Reports: No Limitations - History of Present Illness INITIAL COMMENTS - FREE TEXT/NARRATIVE: 67-year-old male who had open heart surgery 2 months ago and has been struggling with intermittent shortness of breath ever since. He caught a cold over the past week which is made worse, and over the last 48 hours he's become very wheezy, and not responding to his duo nebs. He denies any chest pain. No fevers or chills. He arrived fairly dyspneic with increased respiratory effort but O2 saturations in the low 90s without O2. Onset: Gradual Severity: Moderate Associated Symptoms: Reports: Cough, Malaise, Shortness of Breath. Denies: Chest Pain, Fever/Chills denies Pain Score (Numeric/FACES): 0 - Related Data Allergies Allergy/AdvReac Type Severity Reaction Status Date / Time No Known Allergies Allergy Verified 11/26/17 11:54 Home Meds: Home Meds Aspirin [Halfprin] 81 mg PO DAILY 07/05/17 [History] Clopidogrel [Plavix] 75 mg PO DAILY 07/05/17 [History] Nitroglycerin [Nitrostat] 0.4 mg SL ASDIRECTED PRN 07/05/17 [History] Albuterol Sulfate [Ventolin Hfa] 2 puff INH Q4HR PRN 10/06/17 [History] Metoprolol Tartrate 1 tab PO BID 10/06/17 [History] Pantoprazole Sodium [Protonix] 40 mg PO BID #30 tablet.dr 10/07/17 [Rx] Albuterol/Ipratropium [DuoNeb 3.0-0.5 MG/3 ML] 1 unit INH Q4H 11/26/17 [History] Budesonide/Formoterol Fumarate [Symbicort 160-4.5 Mcg Inhaler] 2 puff INH BID [History] Simvastatin [Zocor] 40 mg PO BEDTIME 11/26/17 [History] Past Medical History Cardiovascular History: Reports: Hypertension Respiratory History: Reports: COPD, Pneumothorax Gastrointestinal History: Reports: GI Bleed - Past Surgical History Cardiovascular Surgical History: Reports: Coronary Artery Bypass, Coronary Artery Stent Musculoskeletal Surgical History: Reports: Shoulder Surgery Social & Family History - Tobacco Use Smoking Status *Q: Unknown Ever Smoked Years of Tobacco use: 40 Used Tobacco, but Quit: Yes Month Tobacco Last Used: september Second Hand Smoke Exposure: No - Caffeine Use Caffeine Use: Reports: Coffee - Alcohol Use Days Per Week of Alcohol Use: 0 - Recreational Drug Use Recreational Drug Use: No ED ROS GENERAL - Review of Systems Review Of Systems: See Below Constitutional: Denies: Fever, Chills Respiratory: Reports: Shortness of Breath, Cough. Denies: Sputum Cardiovascular: Denies: Chest Pain GI/Abdominal: Denies: Abdominal Pain, Nausea, Vomiting Skin: Reports: No Symptoms Neurological: Denies: Headache ED EXAM, GENERAL - Physical Exam Exam: See Below Exam Limited By: No Limitations General Appearance: Alert, Mild Distress (Increase to respiratory effort) Respiratory/Chest: Respiratory Distress (Mild respiratory distress with increased effort), Decreased Breath Sounds (Diffuse decreased breath sounds), Wheezing (Diffuse inspiratory and expiratory wheezing) Cardiovascular: Regular Rate, Rhythm. No: Tachycardia, Extra Beats GI/Abdominal: Other (Abdomen is obese, nontender) Extremities: Normal Inspection. No: Pedal Edema Neurological: Alert, Oriented Psychiatric: Anxious Skin Exam: Warm, Dry Course - Vital Signs Last Recorded V/S: Last Vital Signs Temp 96.4 F 11/28/17 07:32 Pulse 86 11/28/17 07:32 Resp 20 11/28/17 07:32 BP 130/72 11/28/17 07:32 Pulse Ox 95 11/28/17 07:32 - Orders/Labs/Meds Orders: Medication Orders Acetaminophen (Tylenol) 650 mg PO Q4H PRN PRN Reason: Pain (Mild 1-3)/fever Albuterol (Ventolin Hfa) 0 gm INH Q4H PRN PRN Reason: Shortness of Breath Last Admin: 11/27/17 16:34 Dose: 2 puff Admin: 11/27/17 10:10 Dose: 2 puff Albuterol (Proventil Neb Soln) 2.5 mg NEB Q4H PRN PRN Reason: Dyspnea Last Admin: 11/28/17 02:33 Dose: 2.5 mg Albuterol/Ipratropium (Duoneb 3.0-0.5 Mg/3 Ml) 3 ml NEB QIDRT [facility] Last Admin: 11/27/17 21:11 Dose: 3 ml Admin: 11/27/17 14:58 Dose: 3 ml Admin: 11/27/17 10:59 Dose: 3 ml Admin: 11/27/17 10:28 Dose: Aspirin (Halfprin) 81 mg PO DAILY [facility] Last Admin: 11/27/17 08:22 Dose: 81 mg Clopidogrel Bisulfate (Plavix) 75 mg PO DAILY [facility] Last Admin: 11/27/17 08:22 Dose: 75 mg Docusate Sodium (Colace) 100 mg PO BID PRN PRN Reason: Constipation Enoxaparin Sodium (Lovenox) 40 mg SUBCUT Q24H [facility] Last Admin: 11/27/17 18:09 Dose: 40 mg Admin: 11/26/17 17:02 Dose: 40 mg Levofloxacin/Dextrose 500 mg/ (Premix) 100 mls @ 100 mls/hr IV Q24H [facility] Last Admin: 11/27/17 18:09 Dose: 100 mls/hr Infusion: 11/26/17 18:01 Dose: 100 mls/hr Admin: 11/26/17 17:01 Dose: 100 mls/hr Magnesium Hydroxide (Milk Of Magnesia) 30 ml PO Q12H PRN PRN Reason: Constipation Methylprednisolone Sodium Succinate (Solu-Medrol) 40 mg IVPUSH Q6H [facility] Last Admin: 11/28/17 07:26 Dose: 40 mg Admin: 11/28/17 02:25 Dose: 40 mg Admin: 11/27/17 19:55 Dose: 40 mg Admin: 11/27/17 15:19 Dose: 40 mg Admin: 11/27/17 08:22 Dose: 40 mg Admin: 11/27/17 01:59 Dose: 40 mg Admin: 11/26/17 20:44 Dose: 40 mg Metoprolol Tartrate (Lopressor) 50 mg PO BID [facility] Last Admin: 11/27/17 21:12 Dose: 50 mg Admin: 11/27/17 08:22 Dose: 50 mg Admin: 11/26/17 20:45 Dose: 50 mg Mometasone Furoate/Formoterol Fumar (Dulera 200-5 Mcg) 2 puff IH BIDRT [facility] Last Admin: 11/28/17 07:24 Dose: 2 inhaler Admin: 11/27/17 21:11 Dose: 2 inhaler Admin: 11/27/17 07:55 Dose: 2 inhaler Admin: 11/26/17 20:44 Dose: 2 inhaler Nitroglycerin (Nitrostat) 0.4 mg SL ASDIRECTED PRN PRN Reason: Chest Pain Ondansetron HCl (Zofran) 4 mg IV Q4H PRN PRN Reason: Nausea/Vomiting Oxycodone HCl (Oxycodone) 5 mg PO Q4H PRN PRN Reason: Pain (moderate 4-6) Last Admin: 11/26/17 20:54 Dose: 5 mg Pantoprazole Sodium (Protonix) 40 mg PO DAILY@729 [facility] Pantoprazole Sodium (Protonix) 80 mg PO DAILY@729 [facility] Stop: 12/09/17 07:31 Last Admin: 11/28/17 07:23 Dose: 80 mg Admin: 11/27/17 08:21 Dose: 80 mg Admin: 11/26/17 17:01 Dose: 80 mg Polyethylene Glycol (Miralax) 17 gm PO DAILY PRN PRN Reason: Constipation Simvastatin (Zocor) 40 mg PO BEDTIME [facility] Last Admin: 11/27/17 21:16 Dose: 40 mg Admin: 11/26/17 20:48 Dose: 40 mg Sodium Chloride (Saline Flush) 10 ml FLUSH ASDIRECTED PRN PRN Reason: Keep Vein Open Labs: Laboratory Tests 11/26/17 11/26/17 Range/Units 12:15 12:15 WBC 6.9 (4.5-11.0) K/uL RBC 4.41 (4.30-5.90) M/uL Hgb 12.5 D (12.0-15.0) g/dL Hct 40.0 (40.0-54.0) % MCV 91 (80-98) fL MCH 28 (27-31) pg MCHC 31 L (32-36) % Plt Count 202 (150-400) K/uL Neut % (Auto) 70 H (36-66) % Lymph % (Auto) 21 L (24-44) % [place] % (Auto) 8 H (2-6) % Eos % (Auto) 0 L (2-4) % Baso % (Auto) 1 (0-1) % Sodium 141 (140-148) mmol/L Potassium 4.1 (3.6-5.2) mmol/L Chloride 103 (100-108) mmol/L Carbon Dioxide 26 (21-32) mmol/L Anion Gap 12.0 (5.0-14.0) mmol/L BUN 14 (7-18) mg/dL Creatinine 1.1 (0.8-1.3) mg/dL Est Cr Clr Drug Dosing 71.31 mL/min Estimated GFR (MDRD) > 60 (>60) Glucose 159 H (74-106) mg/dL Calcium 8.7 (8.5-10.1) mg/dL Total Bilirubin 0.5 (0.2-1.0) mg/dL AST 23 (15-37) U/L ALT 24 (12-78) U/L Alkaline Phosphatase 92 (46-116) U/L Troponin I 0.020 (0.000-0.056) ng/mL Total Protein 7.1 (6.4-8.2) g/dL Albumin 3.3 L (3.4-5.0) g/dL Globulin 3.8 H (2.3-3.5) g/dL Albumin/Globulin Ratio 0.9 L (1.2-2.2) Meds: Medications Generic Name Dose Route Start Last Admin Trade Name Freq PRN Reason Stop Dose Admin Acetaminophen 650 mg 11/26/17 15:46 Tylenol PO Q4H PRN Pain (Mild 1-3)/fever Albuterol 0 gm 11/26/17 15:46 11/27/17 16:34 Ventolin Hfa INH 2 puff Q4H PRN Administration Shortness of Breath Albuterol 2.5 mg 11/27/17 10:06 11/28/17 02:33 Proventil Neb Soln NEB 2.5 mg Q4H PRN Administration Dyspnea Albuterol/Ipratropium 3 ml 11/27/17 10:00 11/27/17 21:11 Duoneb 3.0-0.5 Mg/3 Ml NEB 3 ml QIDRT [facility] Administration Aspirin 81 mg 11/27/17 09:00 11/27/17 08:22 Halfprin PO 81 mg DAILY [facility] Administration Clopidogrel Bisulfate 75 mg 11/27/17 09:00 11/27/17 08:22 Plavix PO 75 mg DAILY [facility] Administration Docusate Sodium 100 mg 11/26/17 15:46 Colace PO BID PRN Constipation Enoxaparin Sodium 40 mg 11/26/17 17:00 11/27/17 18:09 Lovenox SUBCUT 40 mg Q24H [facility] Administration Levofloxacin/Dextrose 500 mg/ 100 mls @ 100 mls/hr 11/26/17 17:00 11/27/17 18 :09 Premix IV 100 mls/hr Q24H [facility] Administration Magnesium Hydroxide 30 ml 11/26/17 15:46 Milk Of Magnesia PO Q12H PRN Constipation Methylprednisolone Sodium Succinate 40 mg 11/26/17 20:00 11/28/17 07:26 Solu-Medrol IVPUSH 40 mg Q6H [facility] Administration Metoprolol Tartrate 50 mg 11/26/17 21:00 11/27/17 21:12 Lopressor PO 50 mg BID [facility] Administration Mometasone Furoate/Formoterol Fumar 2 puff 11/26/17 21:00 11/28/17 07:24 Dulera 200-5 Mcg IH 2 inhaler BIDRT [facility] Administration Nitroglycerin 0.4 mg 11/26/17 15:46 Nitrostat SL ASDIRECTED PRN Chest Pain Ondansetron HCl 4 mg 11/26/17 15:46 Zofran IV Q4H PRN Nausea/Vomiting Oxycodone HCl 5 mg 11/26/17 15:46 11/26/17 20:54 Oxycodone PO 5 mg Q4H PRN Administration Pain (moderate 4-6) Pantoprazole Sodium 40 mg 12/10/17 07:30 Protonix PO DAILY@0730 [facility] Pantoprazole Sodium 80 mg 11/26/17 16:30 11/28/17 07:23 Protonix PO 12/09/17 07:31 80 mg DAILY@0730 [facility] Administration Polyethylene Glycol 17 gm 11/26/17 15:46 Miralax PO DAILY PRN Constipation Simvastatin 40 mg 11/26/17 21:00 11/27/17 21:16 Zocor PO 40 mg BEDTIME [facility] Administration Sodium Chloride 10 ml 11/26/17 15:46 Saline Flush FLUSH ASDIRECTED PRN Keep Vein Open Discontinued Medications Generic Name Dose Route Start Last Admin Trade Name Freq PRN Reason Stop Dose Admin Albuterol/Ipratropium 3 ml 11/26/17 12:06 11/26/17 12:14 Duoneb 3.0-0.5 Mg/3 Ml NEB 11/26/17 12:07 3 ml ONETIME ONE Administration Sodium Chloride 1,000 mls @ 125 mls/hr 11/26/17 15:46 11/27/17 00:04 Normal Saline IV 125 mls/hr ASDIRECTED [facility] Administration Methylprednisolone Sodium Succinate 125 mg 11/26/17 13:01 11/26/17 13:22 Solu-Medrol IVPUSH 11/26/17 13:02 125 mg ONETIME ONE Administration - Re-Assessments/Exams Free Text/Narrative Re-Assessment/Exam: 11/26/17 12:15 A DuoNeb was given, a two-view chest x-ray obtained and labs drawn for CBC, CMP and troponin. 11/26/17 13:08 Chest x-ray showed stable chronic findings, no acute infiltrate. Influenza antigens were negative. CBC showed a normal white count, CMP was reassuring and troponin was negative. The DuoNeb did help objectively and his O2 saturations have improved into the low 90s but subjectively he still has to exert extra effort and he still has marked inspiratory and expiratory wheezing present. An IV was started, the patient was given 125 mg of Solu-Medrol IV and I discussed his case with Dr. Nobles and he is going to see the patient and assess him for possible admission. Departure - Departure Time of Disposition: 16:15 Disposition: Admitted As Inpatient 68 Condition: Fair Clinical Impression: COPD exacerbation, Viral bronchitis, Hypoxia - Discharge Information
[2017-11-26] MEDS ORDERED: methylPREDNISolone Sodium Succinate 125 MG/2 ML SDV IVPUSH ONE (13:01)
--- NOTE | 2017-11-26 13:35 | CR ---
Chest 2V HISTORY: Dyspnea COMPARISON: 10/06/2017. FINDINGS: Cardiac size is stable. Hyperinflation. No focal infiltrates or effusions. Impression: COPD changes. No acute infiltrate.
--- NOTE | 2017-11-26 15:25 | PCM.HP ---
H&P History of Present Illness - General Date of Service: 11/26/17 Admit Problem/Dx: Admission Diagnosis/Problem Admission Diagnosis/Problem COPD, Severe chronic obstructive pulmonary disease Source of Information: Patient, Family, Old Records, Provider, RN Notes Reviewed History Limitations: Reports: No Limitations - History of Present Illness Initial Comments - Free Text/Narative: Mr. Hill is a 67-year-old gentleman who is admitted through the emergency department with hypoxia, shortness of breath, and cough secondary to COPD exacerbation with bronchitis. He has a known history of COPD and was hospitalized at this facility approximately one month ago with respiratory compromise secondary to exacerbation and underlying infection. For 2-3 days prior to this admission he noted increased shortness of breath with a nonproductive cough. Arrival in the emergency department was noted to be hypoxic , but improved following use of increased supplemental oxygen and nebulizer therapy. He denies any fevers chills or sweats and for the most part his cough has been nonproductive. - Related Data Allergies/Adverse Reactions: Allergies Allergy/AdvReac Type Severity Reaction Status Date / Time No Known Allergies Allergy Verified 11/26/17 11:54 Home Medications: Home Meds Aspirin [Halfprin] 81 mg PO DAILY 07/05/17 [History] Clopidogrel [Plavix] 75 mg PO DAILY 07/05/17 [History] Nitroglycerin [Nitrostat] 0.4 mg SL ASDIRECTED PRN 07/05/17 [History] Albuterol Sulfate [Ventolin Hfa] 2 puff INH Q4HR PRN 10/06/17 [History] Metoprolol Tartrate 1 tab PO BID 10/06/17 [History] Pantoprazole Sodium [Protonix] 40 mg PO BID #30 tablet.dr 10/07/17 [Rx] Albuterol/Ipratropium [DuoNeb 3.0-0.5 MG/3 ML] 1 unit INH Q4H 11/26/17 [History] Budesonide/Formoterol Fumarate [Symbicort 160-4.5 Mcg Inhaler] 2 puff INH BID [History] Simvastatin [Zocor] 40 mg PO BEDTIME 11/26/17 [History] Past Medical History Cardiovascular History: Reports: Hypertension Respiratory History: Reports: COPD, Pneumothorax Gastrointestinal History: Reports: GI Bleed - Past Surgical History Cardiovascular Surgical History: Reports: Coronary Artery Bypass, Coronary Artery Stent Musculoskeletal Surgical History: Reports: Shoulder Surgery Social & Family History - Tobacco Use Smoking Status *Q: Unknown Ever Smoked Years of Tobacco use: 40 Used Tobacco, but Quit: Yes Month Tobacco Last Used: september Second Hand Smoke Exposure: No - Caffeine Use Caffeine Use: Reports: Coffee - Alcohol Use Days Per Week of Alcohol Use: 0 - Recreational Drug Use Recreational Drug Use: No H&P Review of Systems - Review of Systems: Review Of Systems: See Below General: Reports: Weakness. Denies: Fever, Chills, Diaphoresis HEENT: Reports: No Symptoms Pulmonary: Reports: Shortness of Breath, Wheezing, Cough. Denies: Sputum, Hemoptysis Cardiovascular: Reports: Dyspnea on Exertion. Denies: Chest Pain, Palpitations , Orthopnea, PND, Edema, Lightheadedness Gastrointestinal: Reports: No Symptoms Genitourinary: Reports: No Symptoms Musculoskeletal: Reports: No Symptoms Skin: Reports: No Symptoms Psychiatric: Reports: No Symptoms Neurological: Reports: No Symptoms Hematologic/Lymphatic: Reports: No Symptoms Immunologic: Reports: No Symptoms Exam - Exam Exam: See Below - Vital Signs Vital Signs: Last Vital Signs Temp 98.8 F 11/26/17 14:59 Pulse 90 11/26/17 14:59 Resp 18 11/26/17 14:59 BP 156/85 H 11/26/17 14:59 Pulse Ox 91 L 11/26/17 14:59 Weight: 210 lb - Exam Quality Assessment: Supplemental Oxygen, DVT Prophylaxis General: Alert, Oriented, Cooperative, Moderate Distress HEENT: Conjunctiva Clear, Hearing Intact, Mucosa Moist & Gilt Edge, Normal Nasal Septum, Posterior Pharynx Clear, Pupils Equal Neck: Supple, Trachea Midline, +2 Carotid Pulse wo Bruit Lungs: Decreased Breath Sounds, Rhonchi, Wheezing. No: Crackles, Rales, Rub Cardiovascular: Regular Rate, Regular Rhythm, Normal S1, Normal S2. No: Systolic Murmur, Diastolic Murmur GI/Abdominal Exam: Soft, Non-Tender, No Organomegaly, No Distention Back Exam: Normal Inspection, Full Range of Motion Extremities: Non-Tender, No Pedal Edema Skin: Warm, Dry, Intact Neurological: Cranial Nerves Intact, Strength Equal Bilateral, Normal Speech, Normal Tone, Sensation Intact. No: Focal Deficit Neuro Extensive - Mental Status: Alert, Oriented x3, Normal Mood/Affect, Normal Cognition, Memory Intact - Patient Data Lab Results Last 24 hrs: Laboratory Results - last 24 hr 11/26/17 11/26/17 Range/Units 12:15 12:15 WBC 6.9 (4.5-11.0) K/uL RBC 4.41 (4.30-5.90) M/uL Hgb 12.5 D (12.0-15.0) g/dL Hct 40.0 (40.0-54.0) % MCV 91 (80-98) fL MCH 28 (27-31) pg MCHC 31 L (32-36) % Plt Count 202 (150-400) K/uL Neut % (Auto) 70 H (36-66) % Lymph % (Auto) 21 L (24-44) % [place] % (Auto) 8 H (2-6) % Eos % (Auto) 0 L (2-4) % Baso % (Auto) 1 (0-1) % Sodium 141 (140-148) mmol/L Potassium 4.1 (3.6-5.2) mmol/L Chloride 103 (100-108) mmol/L Carbon Dioxide 26 (21-32) mmol/L Anion Gap 12.0 (5.0-14.0) mmol/L BUN 14 (7-18) mg/dL Creatinine 1.1 (0.8-1.3) mg/dL Est Cr Clr Drug Dosing 71.31 mL/min Estimated GFR (MDRD) > 60 (>60) Glucose 159 H (74-106) mg/dL Calcium 8.7 (8.5-10.1) mg/dL Total Bilirubin 0.5 (0.2-1.0) mg/dL AST 23 (15-37) U/L ALT 24 (12-78) U/L Alkaline Phosphatase 92 (46-116) U/L Troponin I 0.020 (0.000-0.056) ng/mL Total Protein 7.1 (6.4-8.2) g/dL Albumin 3.3 L (3.4-5.0) g/dL Globulin 3.8 H (2.3-3.5) g/dL Albumin/Globulin Ratio 0.9 L (1.2-2.2) Result Diagrams: 11/26/17 12:15 11/26/17 12:15 Luiz Results Last 24 hrs: Microbiology 11/26/17 12:31 Influenza Type A Antigen Screen - Final Nasal, Right NEGATIVE INFLUENZA A VIRUS AG Influenza Type B Antigen Screen - Final NEGATIVE INFLUENZA B VIRUS AG *Q Meaningful Use (ADM) - VTE *Q VTE Criteria *Q: - VTE Risk Assess *Q Each Risk Factor Represents 1 Point: Abnormal Pulmonary Function (COPD) Total Score 1 Point Risk Factors: 1 Each Risk Factor Represents 2 Points: Age 60 - 74 Years Total Score 2 Point Risk Factors: 2 Each Risk Factor Represents 3 Points: None Total Score 3 Point Risk Factors: 0 Each Risk Factor Represents 5 Points: None Total Score 5 Point Risk Factors: 0 Venous Thromboembolism Risk Factor Score *Q: 3 - Stroke *Q Stroke Criteria *Q: - AMI *Q AMI Criteria *Q: Problem List Initiated/Reviewed/Updated: Yes Orders Last 24hrs: Active Orders 24 hr Category Date Time Status Patient Status Manage Transfer [TRANSFER] Routine ADT 11/26/17 14:46 Active EKG Documentation Completion [RC] ASDIRECTED Care 11/26/17 12:22 Active RT Aerosol Therapy [RC] ASDIRECTED Care 11/26/17 12:07 Active Resuscitation Status Routine Resus Stat 11/26/17 14:48 Ordered Assessment/Plan Comment:: ASSESSMENT AND PLAN COPD EXACERBATION SECONDARY TO BRONCHITIS-likely secondary to viral bronchitis, no obvious infiltrates noted on chest x-ray in white blood cell count is within normal range. -Supplemental oxygen as needed -Nebulizer therapy with albuterol and duo nebs -Levofloxacin 500 mg IV every 24 hours -Solu-Medrol 40 mg IV every 6 hours -IV fluids for hydration ACUTE ON CHRONIC HYPOXIC RESPIRATORY FAILURE-secondary to COPD exacerbation and bronchitis -Management as above CORONARY ARTERY DISEASE-currently asymptomatic -Continue outpatient medical regimen MAINTENANCE ISSUES -DVT prophylaxis; Lovenox 40 mg subcutaneous daily -GI prophylaxis; continue outpatient Protonix -Acevedo catheter; not indicated -Nutrition; regular diet -Nicotine dependence; not required CODE STATUS-FULL CODE ADMISSION STATUS-patient will be admitted to inpatient status, expect at least a 2 night hospital stay for evaluation and management of problems as outlined above. At the time of this admission I do not reasonably expected evaluation and management of this problem will require more than a 96 hour hospital stay. DISPOSITION-anticipate discharge to home after the hospital stay. PRIMARY CARE PROVIDER-Steffi Ortiz
[2017-11-26] MEDS ORDERED: Nitroglycerin 0.4 MG Tab.SL SL PRN (15:46)
[2017-11-26] MEDS ORDERED: Docusate Sodium 100 MG Cap PO PRN (15:46)
[2017-11-26] MEDS ORDERED: Polyethylene Glycol 3350 Powder 17 GM Packet PO PRN (15:46)
[2017-11-26] MEDS ORDERED: Sodium Chloride 0.9% 10 ML Syringe FLUSH PRN (15:46)
[2017-11-26] MEDS ORDERED: Ondansetron 4 MG/2 ML SDV IV PRN (15:46)
[2017-11-26] MEDS ORDERED: Magnesium Hydroxide 400 MG/5 ML Susp 30 ML Cup PO PRN (15:46)
[2017-11-26] MEDS ORDERED: oxyCODONE 5 MG Tab PO PRN (15:46)
[2017-11-26] MEDS ORDERED: Acetaminophen 325 MG Tab PO PRN (15:46)
[2017-11-26] MEDS: Sodium Chloride 0.9% 1,000 ML IV SCH (16:22)
[2017-11-26] MEDS: Pantoprazole 40 MG Tab.CR PO SCH (17:01)
[2017-11-26] MEDS: Levofloxacin/Dextrose 5%-Water 500 MG in Premix Bag 1 BAG IV SCH (17:01)
[2017-11-26] MEDS: Enoxaparin 40 MG/0.4 ML Syringe SUBCUT SCH (17:02)
[2017-11-26] MEDS: Formoterol/Mometasone 200-5 MCG 8.8 GM Inhaler IH SCH (20:44)
[2017-11-26] MEDS: methylPREDNISolone Sodium Succinate 40 MG/1 ML SDV IVPUSH SCH (20:44)
[2017-11-26] MEDS: Metoprolol Tartrate 50 MG Tab PO SCH (20:45)
[2017-11-26] MEDS: Simvastatin 20 MG Tab PO SCH (20:48)
[2017-11-27] MEDS: Sodium Chloride 0.9% 1,000 ML IV SCH (00:04)
[2017-11-27] MEDS: methylPREDNISolone Sodium Succinate 40 MG/1 ML SDV IVPUSH SCH ×4 (01:59→19:55)
[2017-11-27] MEDS: Formoterol/Mometasone 200-5 MCG 8.8 GM Inhaler IH SCH ×2 (07:55→21:11)
[2017-11-27] MEDS: Pantoprazole 40 MG Tab.CR PO SCH (08:21)
[2017-11-27] MEDS: Metoprolol Tartrate 50 MG Tab PO SCH ×2 (08:22→21:12)
[2017-11-27] MEDS: Aspirin 81 MG Tab.EC PO SCH (08:22)
[2017-11-27] MEDS: Clopidogrel 75 MG Tab PO SCH (08:22)
[2017-11-27] MEDS ORDERED: Albuterol 0.083% 2.5 MG/3 ML Neb Soln NEB PRN (10:06)
[2017-11-27] MEDS: Albuterol 8 GM Inhaler INH PRN ×2 (10:10→16:34)
[2017-11-27] MEDS: Albuterol/Ipratropium 3.0-0.5 MG/3 ML Neb Soln NEB SCH ×4 (10:28→21:11)
--- NOTE | 2017-11-27 10:39 | PCM.PN ---
- General Info Date of Service: 11/27/17 Subjective Update: Mr. Hill has improved modestly since admission yesterday with less shortness of breath and cough. Vital signs have remained stable and he has been afebrile. - Review of Systems General: Denies: Fever, Weakness, Chills Pulmonary: Reports: Shortness of Breath, Cough, Wheezing. Denies: Pleuritic Chest Pain, Sputum, Hemoptysis Cardiovascular: Reports: Dyspnea on Exertion. Denies: Chest Pain, Palpitations , Orthopnea, PND, Edema Gastrointestinal: Reports: No Symptoms Genitourinary: Reports: No Symptoms - Patient Data Vitals - Most Recent: Last Vital Signs Temp 97.9 F 11/27/17 08:00 Pulse 84 11/27/17 08:22 Resp 16 11/27/17 08:00 BP 138/50 L 11/27/17 08:22 Pulse Ox 96 11/27/17 08:00 Weight - Most Recent: 219 lb 1.6 oz I&O - Last 24 Hours: Intake & Output 11/26/17 11/27/17 11/27/17 22:59 06:59 14:59 Intake Total 480 1774 Output Total 450 550 Balance 30 1224 Lab Results Last 24 Hours: Laboratory Results - last 24 hr 11/27/17 11/27/17 Range/Units 05:30 05:30 WBC 7.1 (4.5-11.0) K/uL RBC 4.05 L (4.30-5.90) M/uL Hgb 11.6 L (12.0-15.0) g/dL Hct 36.7 L (40.0-54.0) % MCV 91 (80-98) fL MCH 29 (27-31) pg MCHC 32 (32-36) % Plt Count 191 (150-400) K/uL Neut % (Auto) 80 H (36-66) % Lymph % (Auto) 16 L (24-44) % [place] % (Auto) 4 (2-6) % Eos % (Auto) 0 L (2-4) % Baso % (Auto) 0 (0-1) % Sodium 141 (140-148) mmol/L Potassium 4.6 (3.6-5.2) mmol/L Chloride 107 (100-108) mmol/L Carbon Dioxide 26 (21-32) mmol/L Anion Gap 8.4 (5.0-14.0) mmol/L BUN 14 (7-18) mg/dL Creatinine 0.9 (0.8-1.3) mg/dL Est Cr Clr Drug Dosing 86.80 mL/min Estimated GFR (MDRD) > 60 (>60) Glucose 189 H (74-106) mg/dL Calcium 8.5 (8.5-10.1) mg/dL Med Orders - Current: Current Medications Acetaminophen (Tylenol) 650 mg PO Q4H PRN PRN Reason: Pain (Mild 1-3)/fever Albuterol (Ventolin Hfa) 0 gm INH Q4H PRN PRN Reason: Shortness of Breath Last Admin: 11/27/17 10:10 Dose: 2 puff Albuterol (Proventil Neb Soln) 2.5 mg NEB Q4H PRN PRN Reason: Dyspnea Albuterol/Ipratropium (Duoneb 3.0-0.5 Mg/3 Ml) 3 ml NEB QIDRT [facility] Last Admin: 11/27/17 10:28 Dose: Not Given Aspirin (Halfprin) 81 mg PO DAILY [facility] Last Admin: 11/27/17 08:22 Dose: 81 mg Clopidogrel Bisulfate (Plavix) 75 mg PO DAILY [facility] Last Admin: 11/27/17 08:22 Dose: 75 mg Docusate Sodium (Colace) 100 mg PO BID PRN PRN Reason: Constipation Enoxaparin Sodium (Lovenox) 40 mg SUBCUT Q24H [facility] Last Admin: 11/26/17 17:02 Dose: 40 mg Levofloxacin/Dextrose 500 mg/ (Premix) 100 mls @ 100 mls/hr IV Q24H [facility] Last Admin: 11/26/17 17:01 Dose: 100 mls/hr Magnesium Hydroxide (Milk Of Magnesia) 30 ml PO Q12H PRN PRN Reason: Constipation Methylprednisolone Sodium Succinate (Solu-Medrol) 40 mg IVPUSH Q6H [facility] Last Admin: 11/27/17 08:22 Dose: 40 mg Metoprolol Tartrate (Lopressor) 50 mg PO BID [facility] Last Admin: 11/27/17 08:22 Dose: 50 mg Mometasone Furoate/Formoterol Fumar (Dulera 200-5 Mcg) 2 puff IH BIDRT [facility] Last Admin: 11/27/17 07:55 Dose: 2 inhaler Nitroglycerin (Nitrostat) 0.4 mg SL ASDIRECTED PRN PRN Reason: Chest Pain Ondansetron HCl (Zofran) 4 mg IV Q4H PRN PRN Reason: Nausea/Vomiting Oxycodone HCl (Oxycodone) 5 mg PO Q4H PRN PRN Reason: Pain (moderate 4-6) Last Admin: 11/26/17 20:54 Dose: 5 mg Pantoprazole Sodium (Protonix) 40 mg PO DAILY@729 [facility] Pantoprazole Sodium (Protonix) 80 mg PO DAILY@729 [facility] Stop: 12/09/17 07:31 Last Admin: 11/27/17 08:21 Dose: 80 mg Polyethylene Glycol (Miralax) 17 gm PO DAILY PRN PRN Reason: Constipation Simvastatin (Zocor) 40 mg PO BEDTIME [facility] Last Admin: 11/26/17 20:48 Dose: 40 mg Sodium Chloride (Saline Flush) 10 ml FLUSH ASDIRECTED PRN PRN Reason: Keep Vein Open Discontinued Medications Albuterol/Ipratropium (Duoneb 3.0-0.5 Mg/3 Ml) 3 ml NEB ONETIME ONE Stop: 11/26/17 12:07 Last Admin: 11/26/17 12:14 Dose: 3 ml Sodium Chloride (Normal Saline) 1,000 mls @ 125 mls/hr IV ASDIRECTED [facility] Last Admin: 11/27/17 00:04 Dose: 125 mls/hr Methylprednisolone Sodium Succinate (Solu-Medrol) 125 mg IVPUSH ONETIME ONE Stop: 11/26/17 13:02 Last Admin: 11/26/17 13:22 Dose: 125 mg - Exam Quality Assessment: DVT Prophylaxis General: Alert, Oriented, Cooperative, No Acute Distress Lungs: Clear to Auscultation, Normal Respiratory Effort Cardiovascular: Regular Rate, Regular Rhythm, No Murmurs GI/Abdominal Exam: Soft, Non-Tender, No Organomegaly, No Distention Extremities: Non-Tender, No Pedal Edema Skin: Warm, Dry, Intact - Problem List Review Problem List Initiated/Reviewed/Updated: Yes - My Orders Last 24 Hours: My Active Orders 11/26/17 15:46 Ambulate [RC] QID Height and Weight [RC] DAILY Intake and Output [RC] QSHIFT Notify Provider Vital Signs [RC] ASDIRECTED Oxygen Therapy [RC] PRN Peripheral IV Care [RC] . DIRECTED Pulse Oximetry [RC] CONTINUOUS Up With Assistance [RC] ASDIRECTED Up to Chair [RC] QID Vital Signs [RC] Q4H Acetaminophen [Tylenol] 650 mg PO Q4H PRN Docusate Sodium [Colace] 100 mg PO BID PRN Magnesium Hydroxide [Milk of Magnesia] 30 ml PO Q12H PRN Ondansetron [Zofran] 4 mg IV Q4H PRN Polyethylene Glycol 3350 [MiraLAX] 17 gm PO DAILY PRN Sodium Chloride 0.9% [Saline Flush] 10 ml FLUSH ASDIRECTED PRN oxyCODONE 5 mg PO Q4H PRN 11/26/17 16:30 Pantoprazole [ProTONIX] 80 mg PO DAILY@0730 11/26/17 17:00 Enoxaparin [Lovenox] 40 mg SUBCUT Q24H Levofloxacin/Dextrose 5%-Water [Levaquin in D5W 500 MG/100 ML] 500 mg Premix Bag 1 bag IV Q24H 11/26/17 20:00 methylPREDNISolone Sod Succ [Solu-MEDROL] 40 mg IVPUSH Q6H 11/27/17 10:00 Albuterol/Ipratropium [DuoNeb 3.0-0.5 MG/3 ML] 3 ml NEB QIDRT 11/27/17 10:06 RT Aerosol Therapy [RC] ASDIRECTED Albuterol [Proventil Neb Soln] 2.5 mg NEB Q4H PRN 11/27/17 10:34 Convert IV to Saline Lock [OM.PC] Routine 11/28/17 05:00 BASIC METABOLIC PANEL,BMP [CHEM] Timed - Plan Plan:: ASSESSMENT AND PLAN COPD EXACERBATION SECONDARY TO BRONCHITIS-likely secondary to viral bronchitis, no obvious infiltrates noted on chest x-ray in white blood cell count is within normal range. Mild improvement in symptoms since admission. -Supplemental oxygen as needed -Nebulizer therapy with albuterol and duo nebs -Levofloxacin 500 mg IV every 24 hours -Solu-Medrol 40 mg IV every 6 hours -Saline lock IV ACUTE ON CHRONIC HYPOXIC RESPIRATORY FAILURE-secondary to COPD exacerbation and bronchitis -Management as above CORONARY ARTERY DISEASE-currently asymptomatic -Continue outpatient medical regimen MAINTENANCE ISSUES -DVT prophylaxis; Lovenox 40 mg subcutaneous daily -GI prophylaxis; continue outpatient Protonix -Acevedo catheter; not indicated -Nutrition; regular diet -Nicotine dependence; not required CODE STATUS-FULL CODE ADMISSION STATUS-patient will be admitted to inpatient status, expect at least a 2 night hospital stay for evaluation and management of problems as outlined above. At the time of this admission I do not reasonably expected evaluation and management of this problem will require more than a 96 hour hospital stay. DISPOSITION-anticipate discharge to home after the hospital stay. PRIMARY CARE PROVIDER-Steffi Ortiz
[2017-11-27] MEDS: Levofloxacin/Dextrose 5%-Water 500 MG in Premix Bag 1 BAG IV SCH (18:09)
[2017-11-27] MEDS: Enoxaparin 40 MG/0.4 ML Syringe SUBCUT SCH (18:09)
[2017-11-27] MEDS: Simvastatin 20 MG Tab PO SCH (21:16)
[2017-11-28] MEDS: methylPREDNISolone Sodium Succinate 40 MG/1 ML SDV IVPUSH SCH ×2 (02:25→07:26)
[2017-11-28] MEDS: Pantoprazole 40 MG Tab.CR PO SCH (07:23)
[2017-11-28] MEDS: Formoterol/Mometasone 200-5 MCG 8.8 GM Inhaler IH SCH (07:24)
[2017-11-28] MEDS: Albuterol/Ipratropium 3.0-0.5 MG/3 ML Neb Soln NEB SCH (07:30)
[2017-11-28 07:34] VITALS: BP 130/72
[2017-11-28] MEDS: Clopidogrel 75 MG Tab PO SCH (08:44)
[2017-11-28] MEDS: Aspirin 81 MG Tab.EC PO SCH (08:44)
[2017-11-28] MEDS: Metoprolol Tartrate 50 MG Tab PO SCH (08:44)
--- NOTE | 2017-11-28 11:33 | PCM.DCSUM1 ---
Discharge Summary - Hospital Course Brief History: Mr. Hill is a 67-year-old gentleman who was admitted through the emergency department with shortness of breath, cough, and hypoxia secondary to COPD exacerbation with underlying bronchitis. - Discharge Data Discharge Date: 11/28/17 Discharge Disposition: Home, Self-Care 01 Condition: Fair - Discharge Diagnosis/Problem(s) (1) Bronchitis SNOMED Code(s): 92539166 ICD Code: J40 - BRONCHITIS, NOT SPECIFIED ACUTE OR CHRONIC Status: Acute Current Visit: Yes (2) COPD exacerbation SNOMED Code(s): 219975321511295 ICD Code: J44.1 - CHRONIC OBSTRUCTIVE PULMONARY DISEASE W (ACUTE) EXACERBATION Status: Acute Current Visit: Yes (3) Hypoxia SNOMED Code(s): 397645673 ICD Code: R09.02 - HYPOXEMIA Status: Acute Current Visit: Yes - Patient Summary/Data Hospital Course: Mr. Hill is a 67-year-old gentleman with a known history of COPD. Prior to admission he developed cough associated with shortness of breath, on evaluation in the emergency department was found to be hypoxic. White blood cell count was within normal range and chest x-ray showed no obvious infiltrates. He was felt to have probable COPD exacerbation secondary to bronchitis. On admission he was given IV fluids for hydration, IV levofloxacin, and IV Solu-Medrol. Over the course of his two-day hospitalization he improved significantly but was not yet back to baseline by the time of discharge. Follow-up appointment will be scheduled with his primary care provider within one week. Activity will be as tolerated and he will resume his usual diet. - Patient Instructions Diet: Usual Diet as Tolerated Activity: As Tolerated Other/Special Instructions: Please schedule follow-up appointment with primary care provider within one week. - Discharge Plan Prescriptions/Med Rec: Levofloxacin [Levaquin] 500 mg PO Q24H #4 tablet Prednisone [IJD: predniSONE] 40 mg PO DAILY #8 tab Home Medications: Home Meds Aspirin [Halfprin] 81 mg PO DAILY 07/05/17 [History] Clopidogrel [Plavix] 75 mg PO DAILY 07/05/17 [History] Nitroglycerin [Nitrostat] 0.4 mg SL ASDIRECTED PRN 07/05/17 [History] Albuterol Sulfate [Ventolin Hfa] 2 puff INH Q4HR PRN 10/06/17 [History] Metoprolol Tartrate 1 tab PO BID 10/06/17 [History] Pantoprazole Sodium [Protonix] 40 mg PO BID #30 tablet. 10/07/17 [Rx] Albuterol/Ipratropium [DuoNeb 3.0-0.5 MG/3 ML] 1 unit INH Q4H 11/26/17 [History] Budesonide/Formoterol Fumarate [Symbicort 160-4.5 Mcg Inhaler] 2 puff INH BID [History] Simvastatin [Zocor] 40 mg PO BEDTIME 11/26/17 [History] Levofloxacin [Levaquin] 500 mg PO Q24H #4 tablet 11/28/17 [Rx] Prednisone [IJD: predniSONE] 40 mg PO DAILY #8 tab 11/28/17 [Rx] Referrals: Radha Ortiz MD [Primary Care Provider] - - Patient Data Vitals - Most Recent: Last Vital Signs Temp 96.4 F 11/28/17 07:32 Pulse 86 11/28/17 08:44 Resp 20 11/28/17 07:32 BP 130/72 11/28/17 08:44 Pulse Ox 95 11/28/17 07:32 Weight - Most Recent: 219 lb 1.6 oz I&O - Last 24 hours: Intake & Output 11/27/17 11/28/17 11/28/17 22:59 06:59 14:59 Intake Total 220 240 480 Output Total 1000 500 Balance 220 -760 -20 Lab Results - Last 24 hrs: Laboratory Results - last 24 hr 11/28/17 Range/Units 06:01 Sodium 141 (140-148) mmol/L Potassium 4.3 (3.6-5.2) mmol/L Chloride 106 (100-108) mmol/L Carbon Dioxide 25 (21-32) mmol/L Anion Gap 9.6 (5.0-14.0) mmol/L BUN 22 H D (7-18) mg/dL Creatinine 1.0 (0.8-1.3) mg/dL Est Cr Clr Drug Dosing 78.12 mL/min Estimated GFR (MDRD) > 60 (>60) Glucose 197 H (74-106) mg/dL Calcium 8.9 (8.5-10.1) mg/dL Med Orders - Current: Current Medications Acetaminophen (Tylenol) 650 mg PO Q4H PRN PRN Reason: Pain (Mild 1-3)/fever Albuterol (Ventolin Hfa) 0 gm INH Q4H PRN PRN Reason: Shortness of Breath Last Admin: 11/27/17 16:34 Dose: 2 puff Albuterol (Proventil Neb Soln) 2.5 mg NEB Q4H PRN PRN Reason: Dyspnea Last Admin: 11/28/17 02:33 Dose: 2.5 mg Albuterol/Ipratropium (Duoneb 3.0-0.5 Mg/3 Ml) 3 ml NEB QIDRT [facility] Last Admin: 11/28/17 07:30 Dose: 3 ml Aspirin (Halfprin) 81 mg PO DAILY [facility] Last Admin: 11/28/17 08:44 Dose: 81 mg Clopidogrel Bisulfate (Plavix) 75 mg PO DAILY [facility] Last Admin: 11/28/17 08:44 Dose: 75 mg Docusate Sodium (Colace) 100 mg PO BID PRN PRN Reason: Constipation Enoxaparin Sodium (Lovenox) 40 mg SUBCUT Q24H [facility] Last Admin: 11/27/17 18:09 Dose: 40 mg Levofloxacin/Dextrose 500 mg/ (Premix) 100 mls @ 100 mls/hr IV Q24H [facility] Last Admin: 11/27/17 18:09 Dose: 100 mls/hr Magnesium Hydroxide (Milk Of Magnesia) 30 ml PO Q12H PRN PRN Reason: Constipation Methylprednisolone Sodium Succinate (Solu-Medrol) 40 mg IVPUSH Q6H [facility] Last Admin: 11/28/17 07:26 Dose: 40 mg Metoprolol Tartrate (Lopressor) 50 mg PO BID [facility] Last Admin: 11/28/17 08:44 Dose: 50 mg Mometasone Furoate/Formoterol Fumar (Dulera 200-5 Mcg) 2 puff IH BIDRT [facility] Last Admin: 11/28/17 07:24 Dose: 2 inhaler Nitroglycerin (Nitrostat) 0.4 mg SL ASDIRECTED PRN PRN Reason: Chest Pain Ondansetron HCl (Zofran) 4 mg IV Q4H PRN PRN Reason: Nausea/Vomiting Oxycodone HCl (Oxycodone) 5 mg PO Q4H PRN PRN Reason: Pain (moderate 4-6) Last Admin: 11/26/17 20:54 Dose: 5 mg Pantoprazole Sodium (Protonix) 40 mg PO DAILY@729 [facility] Pantoprazole Sodium (Protonix) 80 mg PO DAILY@729 [facility] Stop: 12/09/17 07:31 Last Admin: 11/28/17 07:23 Dose: 80 mg Polyethylene Glycol (Miralax) 17 gm PO DAILY PRN PRN Reason: Constipation Simvastatin (Zocor) 40 mg PO BEDTIME [facility] Last Admin: 11/27/17 21:16 Dose: 40 mg Sodium Chloride (Saline Flush) 10 ml FLUSH ASDIRECTED PRN PRN Reason: Keep Vein Open Discontinued Medications Albuterol/Ipratropium (Duoneb 3.0-0.5 Mg/3 Ml) 3 ml NEB ONETIME ONE Stop: 11/26/17 12:07 Last Admin: 11/26/17 12:14 Dose: 3 ml Sodium Chloride (Normal Saline) 1,000 mls @ 125 mls/hr IV ASDIRECTED [facility] Last Admin: 11/27/17 00:04 Dose: 125 mls/hr Methylprednisolone Sodium Succinate (Solu-Medrol) 125 mg IVPUSH ONETIME ONE Stop: 11/26/17 13:02 Last Admin: 11/26/17 13:22 Dose: 125 mg *Q Meaningful Use (DIS) - VTE *Q VTE Criteria *Q: - Stroke *Q Stroke Criteria *Q: - AMI *Q AMI Criteria *Q:
[2017-12-10] MEDS ORDERED: Pantoprazole 40 MG Tab.CR PO SCH (07:30)
== END 2017-11-28 12:50 | disposition home or self-care (01) | DRG 202 ==
LOC: JP.ED 11:44 → JP.ICU 14:46 → JP.MS 11-27 12:53
PROVIDERS: ADMIT Hospitalist; ATTEND Hospitalist
DX: J20.8 Acute bronchitis due to other specified organisms (principal); J96.21 Acute and chronic respiratory failure with hypoxia; J44.0 Chronic obstructive pulmonary disease with (acute) lower respiratory infection; J44.1 Chronic obstructive pulmonary disease with (acute) exacerbation; I10 Essential (primary) hypertension; I25.10 Atherosclerotic heart disease of native coronary artery without angina pectoris; Z87.891 Personal history of nicotine dependence; R09.02 Hypoxemia; Z95.1 Presence of aortocoronary bypass graft; Z95.5 Presence of coronary angioplasty implant and graft; Z79.82 Long term (current) use of aspirin; Z79.52 Long term (current) use of systemic steroids
CPT/HCPCS: 36415; 71046 ×2; 80053; 84484; 85025; 87804 ×2; 93005; 94640; 96374; 99285; J2930; J7620; 80048; 93010; 99284; A9270-GY; J1650; J1956; J2920; J7040

== ENCOUNTER 2018-01-30 07:27 | Day surgery (SDC) | payer MEDICARE, OTHER ==
[2018-01-30] MEDS ORDERED: ceFAZolin 2 GM in Premix Bag 1 BAG IV ONE (08:00)
[2018-01-30] MEDS ORDERED: Scopolamine 1.5 MG Transdermal Patch TOP SCH (08:00)
[2018-01-30] MEDS ORDERED: Gabapentin 300 MG Cap PO ONE (08:00)
[2018-01-30] MEDS ORDERED: Acetaminophen 500 MG Tab PO ONE (08:00)
[2018-01-30] MEDS ORDERED: Midazolam 1 MG/ML 2 ML SDV ONE ×2 (08:07→11:24)
[2018-01-30] MEDS ORDERED: Propofol 200 MG/20 ML SDV ONE (08:07)
[2018-01-30] MEDS ORDERED: fentaNYL 100 MCG/2 ML SDV ONE (08:07)
[2018-01-30] MEDS: Lactated Ringers 1,000 ML IV SCH ×2 (08:48→14:52)
[2018-01-30] MEDS ORDERED: Ketamine 500 MG/5 ML MDV IV SCH (09:45)
[2018-01-30] MEDS ORDERED: Ropivacaine 49.25 ML, Ketorolac 30 MG, EPINEPHrine 0.5 MG, cloNIDine 80 MCG, Sodium Chl... INJECT ONE ×5 (09:45)
[2018-01-30] MEDS ORDERED: Gentamicin 40 MG/ML 2 ML Vial ONE (09:55)
[2018-01-30] MEDS ORDERED: Povidone-Iodine 10% Soln 118.25 ML Bottle ONE (09:55)
[2018-01-30] MEDS: Tranexamic Acid 1,000 MG in Sodium Chloride 0.9% 50 ML IV SCH ×2 (11:28→12:49)
[2018-01-30] MEDS ORDERED: Dexamethasone 4 MG/ML SDV ONE (12:20)
[2018-01-30] MEDS ORDERED: Ondansetron 4 MG/2 ML SDV ONE (12:20)
[2018-01-30] MEDS ORDERED: traMADol 50 MG Tab PO PRN (12:35)
[2018-01-30] MEDS ORDERED: Zolpidem 5 MG Tab PO PRN (12:35)
[2018-01-30] MEDS ORDERED: Sennosides 8.6 MG Tab PO PRN (12:35)
[2018-01-30] MEDS ORDERED: Ketorolac 30 MG/ML SDV IVPUSH PRN (12:35)
[2018-01-30] MEDS ORDERED: diphenhydrAMINE 50 MG/ML SDV IVPUSH PRN (12:35)
[2018-01-30] MEDS ORDERED: Bisacodyl 5 MG Tab PO PRN (12:35)
[2018-01-30] MEDS ORDERED: Magnesium Hydroxide 400 MG/5 ML Susp 30 ML Cup PO PRN (12:35)
[2018-01-30] MEDS ORDERED: Ondansetron 4 MG/2 ML SDV IVPUSH PRN (12:35)
[2018-01-30] MEDS ORDERED: Morphine 2 MG/ML Syringe IVPUSH PRN (12:35)
[2018-01-30] MEDS ORDERED: Aluminum Hydroxide/Magnesium Hydroxide/Simethicone Susp 30 ML Cup PO PRN (12:35)
[2018-01-30] MEDS ORDERED: Naloxone 0.4 MG/ML SDV IVPUSH PRN (12:35)
[2018-01-30] MEDS ORDERED: Albuterol 8 GM Inhaler INH PRN (12:38)
--- NOTE | 2018-01-30 13:58 | CR ---
Knee 1V or 2V Rt HISTORY: Postop COMPARISON: 12/17/2017. FINDINGS: Right medial hemiarthroplasty change. Surgical clips on the skin surface. Small amount of f luid and gas in the suprapatellar bursa. There is excellent alignment. No acute fracture.
[2018-01-30] MEDS ORDERED: Acetaminophen 1,000 MG in Premix Bag 1 BAG IV ONE (14:00)
[2018-01-30] MEDS: Albuterol/Ipratropium 3.0-0.5 MG/3 ML Neb Soln INH SCH ×3 (15:04→23:32)
--- NOTE | 2018-01-30 15:04 | OR ---
DATE OF PROCEDURE: 01/30/2018 PREOPERATIVE DIAGNOSIS: Right knee primary osteoarthritis. POSTOPERATIVE DIAGNOSIS: Right knee primary osteoarthritis. PROCEDURE: Right knee medial compartmental arthroplasty. HELPER [employer]EL FABRICATION: Sariah Wild NP. Physician financial services assistant, Sariah Wild NP, played an essential role in assisting in this case, helping to position the patient, retract structures as needed, as well as suturing and cutting sutures as indicated. Her presence improved patient's safety and decreased operative time. ANESTHESIA: Spinal plus conscious sedation. FLUID: Lactated Ringer's solution. ESTIMATED BLOOD LOSS: 100 mL. COMPLICATIONS: None. SPECIMEN: None. DISCHARGE DISPOSITION: Stable to PACU. INSTRUMENTATION: DePuy Sigma unicondylar tibial tray, size 5; size 5, 7-mm polyethylene insert; and size 4 cemented unicondylar femur. HISTORY AND INDICATIONS FOR THE PROCEDURE: The patient was seen preoperatively by myself in the clinic. He had failed nonoperative treatment. Preoperative imaging confirmed the above- mentioned diagnosis. Risks and benefits of the procedure were explained to the patient. Informed consent was obtained. DESCRIPTION OF PROCEDURE: The patient was seen preoperatively by myself and the anesthesia staff in the preop holding area where the operative site was marked. He was brought to the operative suite by Anesthesia Staff where spinal sedation plus conscious sedation was administered. A well-padded tourniquet was placed on the right thigh, and the left lower extremity was placed into a stirrup with SCDs. The right lower extremity was then placed into U-hurtado with two gel pads. The right lower extremity was then prepped and draped in a sterile manner. Time-out was called identifying the correct patient, the correct procedure, the correct site, and that the antibiotics had begun within an appropriate period of time. The right lower extremity was exsanguinated. Tourniquet was raised to 300 mmHg for 38 minutes and taken down during cementing. The incision was made from the tibial tubercle to the medial aspect of the patella. Bleeding during the case was controlled with Bovie electrocautery. Medial compartment synovectomy and infrapatellar fat pad removal were performed. I used osteotomes to take some osteophytes out of the intercondylar notch and exposed the medial tibia with Bovie electrocautery. I then used an extramedullary guide at approximately 5 degrees posterior slope coming from the tibial tubercle to the second metatarsal and then pinned the guide in place and then performed my resection. This measured a size 5. I was able to insert a 7-mm spacer in flexion and extension, which were approximately equal. I then extended the knee and then marked the midpoint of the tibial spacer. I then removed the tibial spacer and inserted my distal femoral cutting guide, then pinned this in place, and then made my distal femoral cut. I then removed the guide and pins. I then flexed the knee, placed the tibial guide, and marked the midpoint. I then inserted a 5 distal femoral cutting guide. This appeared a bit large, so I inserted a size 4 and then placed 2 pins to hold this in position. I put this at about the midpoint of the condyle. I then made my chamfer cuts, then removed the guide, then used a saw to clean up my cuts, and removed the extra bone. I removed the remainder of the medial meniscus. I then applied my femoral trial. This provided good range of motion and stability with a 7 spacer. I then removed the femoral trial and then placed my cutting guide on for the tibia for the keel. I used a lamina cnc milling machinist to hold this in place and then gouged out the space for the keel. We then drilled a lug for the keel. I then confirmed that enough had been removed with a trial keel. We then removed the cutting guide and then copiously irrigated with saline. We then cemented our components in place in full extension with a 7-mm polyethylene insert and removed any extra cement. We let down the tourniquet. We allowed the cement to dry, then removed any extra cement, and irrigated with saline. I had Sariah Widl place some FloSeal posteriorly along the capsule for some small amount of bleeding. We then placed two #5 Ethibond sutures in the superior and inferior aspect of the patella and then closed with #1 Stratafix, 3-0 Stratafix alexis and a sterile dressing. The patient was then transferred to his hospital bed and taken to PACU in stable condition. Edmundo Alvarez DO /[id number]
--- NOTE | 2018-01-30 17:39 | PCM.DCSUM1 ---
Discharge Summary - Discharge Data Discharge Date: 01/31/18 Discharge Disposition: Home, Self-Care 01 Condition: Good - Patient Summary/Data Operative Procedure(s) Performed: right knee medial unicompartmental arthroplasty Complications: none Consults: Consultations 01/30/18 12:35 OT Evaluation and Treatment [CONS] Routine Please Evaluate and Treat. OT Reason for Consult: Strengthening This query below is only for informational purposes and is not editable. PT Evaluation and Treatment [CONS] Routine Please Evaluate and Treat. PT Reason for Consult: Strengthening This query below is only for informational purposes and is not editable. Respiratory Care Assess and Treatment [CONS] Routine Comment: Physician Instructions: Post-Op Pneumonia Prevention - Patient Instructions Diet: Usual Diet as Tolerated Activity: Apply Ice, As Tolerated, Full Weight Bearing Driving: Do Not Drive Showering/Bathing: May Shower Wound/Incision Care: Keep Operative Site/Wound Site Clean and Dry, Change Dressing Daily, Do NOT Change Dressing Notify Provider of: Fever, Increased Pain, Swelling and Redness, Drainage, Nausea and/or Vomiting - Discharge Plan Prescriptions/Med Rec: Acetaminophen/oxyCODONE [Percocet 325-5 MG] 1 tab PO Q6HR PRN #120 tablet PRN Reason: Pain Home Medications: Home Meds Clopidogrel [Plavix] 75 mg PO DAILY 07/05/17 [History] Albuterol Sulfate [Ventolin Hfa] 2 puff INH Q4HR PRN 10/06/17 [History] Metoprolol Tartrate 50 tab PO BID 10/06/17 [History] Albuterol/Ipratropium [DuoNeb 3.0-0.5 MG/3 ML] 1 unit INH Q4H 11/26/17 [History] Simvastatin [Zocor] 40 mg PO BEDTIME 11/26/17 [History] Acetaminophen/oxyCODONE [Percocet 325-5 MG] 1 tab PO Q6HR PRN #120 tablet [Rx] Trelegy Ellipta 1 puff INH DAILY 01/30/18 [History] - Patient Data Vitals - Most Recent: Last Vital Signs Temp 98 F 01/30/18 16:44 Pulse 82 01/30/18 16:44 Resp 16 01/30/18 16:44 BP 129/75 01/30/18 16:44 Pulse Ox 93 L 01/30/18 16:44 Weight - Most Recent: 231 lb 8 oz I&O - Last 24 hours: Intake & Output 01/30/18 01/30/18 01/30/18 06:59 14:59 22:59 Intake Total 240 Output Total 150 115 Balance -150 125 Lab Results - Last 24 hrs: Laboratory Results - last 24 hr 01/30/18 Range/Units 07:50 Blood Type O POSITIVE Gel Antibody Screen Negative Med Orders - Current: Current Medications Al Hydroxide/Mg Hydroxide (Mag-Al Plus) 30 ml PO Q4H PRN PRN Reason: Constipation Albuterol (Ventolin Hfa) 0 gm INH Q4H PRN PRN Reason: Shortness of Breath Albuterol/Ipratropium (Duoneb 3.0-0.5 Mg/3 Ml) 3 ml INH Q4H [facility] Last Admin: 01/30/18 15:04 Dose: 3 ml Aspirin (Ecotrin) 325 mg PO DAILY [facility] Bisacodyl (Dulcolax) 10 mg PO DAILY PRN PRN Reason: Constipation Diphenhydramine HCl (Benadryl) 25 mg IVPUSH Q4H PRN PRN Reason: Itching Docusate Sodium (Colace) 100 mg PO BID [facility] Lactated Ringer's (Ringers, Lactated) 1,000 mls @ 100 mls/hr IV ASDIRECTED [facility] Last Admin: 01/30/18 14:52 Dose: 100 mls/hr Cefazolin Sodium/Dextrose 2 gm (/ Premix) 50 mls @ 100 mls/hr IV Q8H [facility] Stop: 01/31/18 10:29 Ketorolac Tromethamine (Toradol) 30 mg IVPUSH Q8H PRN PRN Reason: Pain Stop: 02/04/18 12:35 Magnesium Hydroxide (Milk Of Magnesia) 30 ml PO BID PRN PRN Reason: Constipation Metoprolol Tartrate (Lopressor) 50 mg PO BID [facility] Morphine Sulfate (Morphine) 2 mg IVPUSH Q2H PRN PRN Reason: Pain Naloxone HCl (Narcan) 0.1 mg IVPUSH ONETIME PRN PRN Reason: Oversedation Trelegy Ellipta ( (Ptom)) 1 puff INH DAILY [facility] Ondansetron HCl (Zofran) 8 mg IVPUSH Q4H PRN PRN Reason: Nausea/Vomiting Oxycodone HCl (Oxycodone) 10 mg PO Q4H PRN PRN Reason: Pain Stop: 01/31/18 12:35 Oxycodone/Acetaminophen (Percocet 325-5 Mg) 2 tab PO Q4H PRN PRN Reason: Pain Scopolamine (Transderm-Scop) 1.5 mg TOP Q72H [facility] Stop: 02/02/18 07:30 Last Admin: 01/30/18 07:56 Dose: 1.5 mg Senna (Senna) 8.6 mg PO BID PRN PRN Reason: Constipation Simvastatin (Zocor) 40 mg PO BEDTIME [facility] Sodium Chloride (Saline Flush) 10 ml FLUSH DAILY [facility] Tramadol HCl (Ultram) 100 mg PO Q6H PRN PRN Reason: Pain Zolpidem Tartrate (Ambien) 5 mg PO BEDTIME PRN PRN Reason: Sleep Discontinued Medications Acetaminophen (Tylenol Extra Strength) 1,000 mg PO ONETIME ONE Stop: 01/30/18 08:01 Last Admin: 01/30/18 07:57 Dose: 1,000 mg Ropivacaine 49.25 ml/Ketorolac Tromethamine 30 mg/Epinephrine HCl 0.5 mg/ Clonidine HCl 80 mcg/ Sodium Chloride 48.45 ml 0 ml INJECT ONETIME ONE Stop: 01/30/18 09:46 Last Admin: 01/30/18 12:11 Dose: 100 ml Dexamethasone (Dexamethasone) Confirm Administered Dose 4 mg .ROUTE .STK-MED ONE Stop: 01/30/18 12:21 Fentanyl (Sublimaze) Confirm Administered Dose 100 mcg .ROUTE .STK-MED ONE Stop: 01/30/18 08:08 Gabapentin (Neurontin) 300 mg PO ONETIME ONE Stop: 01/30/18 08:01 Last Admin: 01/30/18 07:56 Dose: 300 mg Gentamicin Sulfate (Gentamicin) Confirm Administered Dose 240 mg .ROUTE .STK- MED ONE Stop: 01/30/18 09:56 Last Admin: 01/30/18 11:41 Dose: 240 mg Cefazolin Sodium/Dextrose 2 gm (/ Premix) 50 mls @ 100 mls/hr IV ONETIME ONE Stop: 01/30/18 08:29 Last Admin: 01/30/18 10:57 Dose: 100 mls/hr Tranexamic Acid 1,000 mg/ (Sodium Chloride) 60 mls @ 240 mls/hr IV Q2H [facility] Stop: 01/30/18 11:59 Last Admin: 01/30/18 12:49 Dose: 240 mls/hr Acetaminophen 1,000 mg/ Premix 100 mls @ 400 mls/hr IV NOW ONE Stop: 01/30/18 14:14 Last Admin: 01/30/18 14:52 Dose: 400 mls/hr Ketamine HCl (Ketalar) 37 mg IV ASDIRECTED [facility] Midazolam HCl (Versed 1 Mg/Ml) Confirm Administered Dose 2 mg .ROUTE .STK-MED ONE Stop: 01/30/18 08:08 Midazolam HCl (Versed 1 Mg/Ml) Confirm Administered Dose 2 mg .ROUTE .STK-MED ONE Stop: 01/30/18 11:25 Ondansetron HCl (Zofran) Confirm Administered Dose 4 mg .ROUTE .STK-MED ONE Stop: 01/30/18 12:21 Povidone Iodine (Betadine 10% Soln) Confirm Administered Dose 1 ml .ROUTE .STK- MED ONE Stop: 01/30/18 09:56 Propofol (Diprivan 20 Ml) Confirm Administered Dose 200 mg .ROUTE .STK-MED ONE Stop: 01/30/18 08:08 *Q Meaningful Use (DIS) - VTE *Q VTE Criteria *Q: - Stroke *Q Stroke Criteria *Q: - AMI *Q AMI Criteria *Q:
[2018-01-30] MEDS: ceFAZolin 2 GM in Premix Bag 1 BAG IV SCH (17:45)
[2018-01-30] MEDS: oxyCODONE 5 MG Tab PO PRN (19:17)
[2018-01-30] MEDS: Metoprolol Tartrate 50 MG Tab PO SCH (20:31)
[2018-01-30] MEDS: Docusate Sodium 100 MG Cap PO SCH (20:31)
[2018-01-30] MEDS ORDERED: Simvastatin 20 MG Tab PO SCH (21:00)
[2018-01-30] MEDS ORDERED: Non-Formulary Medication 1 Each (Budesonide/Formoterol Fumarate [Symbicort 160-4.5 Mcg Inh INH SCH (21:00)
[2018-01-31] MEDS: oxyCODONE 5 MG Tab PO PRN (00:53)
[2018-01-31] MEDS: ceFAZolin 2 GM in Premix Bag 1 BAG IV SCH ×2 (02:11→09:08)
[2018-01-31] MEDS: Albuterol/Ipratropium 3.0-0.5 MG/3 ML Neb Soln INH SCH ×3 (02:12→10:53)
[2018-01-31 07:11] VITALS: BP 123/68
[2018-01-31] MEDS: Docusate Sodium 100 MG Cap PO SCH (08:21)
[2018-01-31] MEDS: Metoprolol Tartrate 50 MG Tab PO SCH (08:22)
[2018-01-31] MEDS ORDERED: TRELEGY ELLIPTA INH SCH (09:00)
[2018-01-31] MEDS ORDERED: Sodium Chloride 0.9% 10 ML Syringe FLUSH SCH (09:00)
[2018-01-31] MEDS ORDERED: Pneumococcal Polyvalent-23 Vaccine 0.5 ML SDV IM ONE (10:00)
[2018-01-31] MEDS ORDERED: Aspirin 325 MG Tab.EC PO SCH (12:35)
[2018-01-31] MEDS ORDERED: Acetaminophen/oxyCODONE 325-5 MG Tab PO PRN (12:35)
== END 2018-01-31 13:06 | disposition home or self-care (01) ==
LOC: JP.SDS 07:27 → JP.MS 12:35 → JP.SDS 01-31 13:06
PROVIDERS: ATTEND Orthopaedic Surgery
DX: M17.11 Unilateral primary osteoarthritis, right knee (principal); I25.10 Atherosclerotic heart disease of native coronary artery without angina pectoris; J44.9 Chronic obstructive pulmonary disease, unspecified; E78.2 Mixed hyperlipidemia; I11.0 Hypertensive heart disease with heart failure; I50.9 Heart failure, unspecified; I25.2 Old myocardial infarction; R73.03 Prediabetes; E66.9 Obesity, unspecified; Z68.33 Body mass index [BMI] 33.0-33.9, adult; Z87.891 Personal history of nicotine dependence; Z79.02 Long term (current) use of antithrombotics/antiplatelets; Z79.899 Other long term (current) drug therapy; Z88.8 Allergy status to other drugs, medicaments and biological substances; Z95.1 Presence of aortocoronary bypass graft; Z95.5 Presence of coronary angioplasty implant and graft; Z98.890 Other specified postprocedural states
CPT/HCPCS: 27446; 36415; 73560; 80053; 85025; 86850; 86900; 86901; 94640; 94762; 97110; 97116; 97162; 97530; A9270; C1713; J0131; J0171; J0690; J0735; J1100; J1580; J1885; J2250; J2405; J2704; J2795; J3010; J7050; J7120; J7620

== ENCOUNTER 2018-02-26 17:26 | Inpatient (IN) | payer MEDICARE, OTHER ==
[2018-02-26] MEDS ORDERED: Lactated Ringers 1,000 ML IV ONE (18:10)
[2018-02-26] MEDS ORDERED: Sodium Chloride 0.9% 10 ML Syringe FLUSH PRN (18:10)
[2018-02-26] MEDS ORDERED: Naloxone 0.4 MG/ML SDV IVPUSH PRN (18:12)
[2018-02-26] MEDS ORDERED: fentaNYL 100 MCG/2 ML SDV IVPUSH ONE (18:12)
[2018-02-26] MEDS ORDERED: Ondansetron 4 MG/2 ML SDV IVPUSH PRN (18:12)
[2018-02-26] MEDS ORDERED: Zolpidem 5 MG Tab PO PRN (18:12)
[2018-02-26] MEDS ORDERED: ceFAZolin 2 GM in Sodium Chloride 0.9% 50 ML IV SCH ×2 (18:15→20:00)
[2018-02-26] MEDS ORDERED: Albuterol 8 GM Inhaler INH PRN (18:20)
--- NOTE | 2018-02-26 18:48 | PCM.SN ---
- Free Text/Narrative Note: Patient was seen and evaluated by Dr. Alvarez orthopedic surgery, could not do a direct admit at the time because the hospital is on red alerts but did open up later on in the evening, therefore he stayed in the emergency department until bed availability
[2018-02-26] MEDS: Simvastatin 20 MG Tab ONE ×2 (20:23→20:28)
[2018-02-26] MEDS: hydrOXYzine HCl 100 MG/2 ML SDV IM SCH (20:25)
[2018-02-26] MEDS: Metoprolol Tartrate 50 MG Tab PO SCH (20:27)
[2018-02-26] MEDS: Gabapentin 100 MG Cap PO SCH (20:34)
[2018-02-26] MEDS ORDERED: Non-Formulary Medication 1 Each (Simvastatin [Zocor] 40 MG) PO SCH (21:00)
[2018-02-26] MEDS: Acetaminophen/oxyCODONE 325-5 MG Tab PO PRN (23:41)
[2018-02-27] MEDS: hydrOXYzine HCl 100 MG/2 ML SDV IM SCH ×6 (02:14→18:39)
[2018-02-27] MEDS: Morphine 2 MG/ML Syringe IVPUSH PRN ×2 (02:41→18:40)
[2018-02-27] MEDS ORDERED: ceFAZolin 2 GM in Sodium Chloride 0.9% 50 ML IV SCH (03:00)
[2018-02-27] MEDS: Acetaminophen/oxyCODONE 325-5 MG Tab PO PRN ×4 (04:22→20:45)
[2018-02-27] MEDS ORDERED: Pantoprazole 40 MG Tab.CR PO SCH (09:00)
[2018-02-27] MEDS: ceFAZolin 2 GM in Premix Bag 1 BAG IV SCH ×2 (10:06→19:54)
--- NOTE | 2018-02-27 13:09 | PCM.HP ---
H&P History of Present Illness - General Date of Service: 02/26/18 Admit Problem/Dx: Admission Diagnosis/Problem Admission Diagnosis/Problem Knee pain Source of Information: Patient History Limitations: Reports: No Limitations - History of Present Illness Onset of Symptoms: Reports: Gradual Duration of Symptoms: Reports: Day(s):, Getting Worse Location: Reports: Lower Extremity, Right Quality: Reports: Ache, Burning Improves with: Reports: Immobilization Worsens with: Reports: Movement Associated Symptoms: Reports: No Other Symptoms Right Knee Pain Score (Numeric/FACES): 8 - Related Data Allergies/Adverse Reactions: Allergies Allergy/AdvReac Type Severity Reaction Status Date / Time sulfamethoxazole Allergy Shortness Verified 02/26/18 10:18 [From Bactrim] of Breath trimethoprim [From Bactrim] Allergy Shortness Verified 02/26/18 10:18 of Breath Home Medications: Home Meds Clopidogrel [Plavix] 75 mg PO DAILY 07/05/17 [History] Albuterol Sulfate [Ventolin Hfa] 2 puff INH Q4HR PRN 10/06/17 [History] Metoprolol Tartrate 50 tab PO BID 10/06/17 [History] Albuterol/Ipratropium [DuoNeb 3.0-0.5 MG/3 ML] 1 unit INH Q4H 11/26/17 [History] Simvastatin [Zocor] 40 mg PO BEDTIME 11/26/17 [History] Acetaminophen/oxyCODONE [Percocet 325-5 MG] 1 tab PO Q6HR PRN #120 tablet [Rx] Trelegy Ellipta 1 puff INH DAILY 01/30/18 [History] Aspirin 81 mg PO DAILY 02/11/18 [History] Gabapentin [Neurontin] 200 mg PO TID 02/25/18 [History] Amoxicillin/Potassium Clav [Augmentin 875-125 Tablet] 1 tab PO BID 02/26/18 [ History] Hydrocodone/Acetaminophen [[place] 10-325 Tablet] 02/26/18 [History] Meperidine [Demerol] 02/26/18 [History] Sulfamethoxazole/Trimethoprim [Sulfamethoxazole-Tmp Ds Tablet] 02/26/18 [ History] hydrOXYzine Pamoate [Vistaril] 02/26/18 [History] Past Medical History Cardiovascular History: Reports: Angina, Bypass, CAD, High Cholesterol, Hypertension, [place], SOB on Exertion, Stents Respiratory History: Reports: COPD, Intubation, Previous, Pneumothorax, Sleep Apnea, SOB Gastrointestinal History: Reports: GERD, GI Bleed, PUD Musculoskeletal History: Reports: Arthritis, Back Pain, Chronic, Other (See Below) Other Musculoskeletal History: RLE pain Endocrine/Metabolic History: Reports: Obesity/BMI 30+ Hematologic History: Reports: Blood Transfusion(s) - Infectious Disease History Infectious Disease History: Reports: Chicken Pox, Shingles - Past Surgical History Cardiovascular Surgical History: Reports: Coronary Artery Bypass, Coronary Artery Stent, Other (See Below) Other Cardiovascular Surgeries/Procedures: 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/2017 Respiratory Surgical History: Reports: Other (See Below) Other Respiratory Surgeries/Procedures: chest tube Endocrine Surgical History: Reports: None Musculoskeletal Surgical History: Reports: Carpal Tunnel, Knee Replacement, Shoulder Surgery, Other (See Below) Other Musculoskeletal Surgeries/Procedures:: 01/30/2018 R medial unicompartmental knee arthroplasty Dermatological Surgical History: Reports: None Social & Family History - Family History Cardiac: Reports: [place] Dermatologic: Reports: Psoriasis Oncologic: Reports: Colon, Other (See Below) Other Oncologic Family History: stomach cancer - Tobacco Use Smoking Status *Q: Former Smoker Years of Tobacco use: 40 Used Tobacco, but Quit: Yes Month/Year Tobacco Last Used: September 25 2017 Second Hand Smoke Exposure: No - Caffeine Use Caffeine Use: Reports: Coffee - Alcohol Use Days Per Week of Alcohol Use: 1 Number of Drinks Per Day: 2 Total Drinks Per Week: 2 - Recreational Drug Use Recreational Drug Use: No H&P Review of Systems - Review of Systems: Review Of Systems: See Below General: Reports: No Symptoms HEENT: Reports: No Symptoms Pulmonary: Reports: No Symptoms Cardiovascular: Reports: No Symptoms Gastrointestinal: Reports: No Symptoms Genitourinary: Reports: No Symptoms Musculoskeletal: Reports: Joint Pain, Muscle Pain, Muscle Stiffness Skin: Reports: No Symptoms Psychiatric: Reports: No Symptoms Neurological: Reports: No Symptoms Hematologic/Lymphatic: Reports: No Symptoms Immunologic: Reports: No Symptoms Exam - Exam Exam: See Below - Vital Signs Vital Signs: Last Vital Signs Temp 97.1 F 02/27/18 11:00 Pulse 73 02/27/18 11:00 Resp 16 02/27/18 11:00 BP 126/71 02/27/18 11:00 Pulse Ox 96 02/27/18 11:00 Weight: 234 lb 15.992 oz - Exam General: Alert, Oriented HEENT: Conjunctiva Clear, Hearing Intact, Mucosa Moist & [place], Pupils Equal, Pupils Reactive Neck: Supple, Trachea Midline Lungs: Clear to Auscultation, Normal Respiratory Effort Cardiovascular: Regular Rate, Regular Rhythm Extremities: Joint Swelling, Leg Pain, Redness Peripheral Pulses: 2+: Dorsalis Pedis (L), Dorsalis Pedis (R) Skin: Warm, Dry, Intact Neuro Extensive - Mental Status: Alert, Oriented x3, Normal Mood/Affect, Normal Cognition Psychiatric: Alert, Normal Affect, Normal Mood Physical Exam Comments:: rle: ttp medial proximal tibia and joint line. some redness with blanching. some pain with rom. rom -5-100 with moderate pain. distal motor and sensory exam grossly intact - Patient Data Lab Results Last 24 hrs: Laboratory Results - last 24 hr 02/26/18 02/26/18 02/26/18 Range/Units 18:32 18:32 18:35 WBC 7.3 (4.5-11.0) K/uL RBC 4.54 (4.30-5.90) M/uL Hgb 13.2 (12.0-15.0) g/dL Hct 39.7 L (40.0-54.0) % MCV 87 (80-98) fL MCH 29 (27-31) pg MCHC 33 (32-36) % Plt Count 205 (150-400) K/uL Neut % (Auto) 55 (36-66) % Lymph % (Auto) 24 (24-44) % Arthur % (Auto) 17 H (2-6) % Eos % (Auto) 3 (2-4) % Baso % (Auto) 0 (0-1) % Sodium 138 L (140-148) mmol/L Potassium 4.2 (3.6-5.2) mmol/L Chloride 102 (100-108) mmol/L Carbon Dioxide 27 (21-32) mmol/L Anion Gap 13.2 (5.0-14.0) mmol/L BUN 15 (7-18) mg/dL Creatinine 1.3 (0.8-1.3) mg/dL Est Cr Clr Drug Dosing 60.34 mL/min Estimated GFR (MDRD) 55 L (>60) Glucose 205 H (74-106) mg/dL Calcium 8.4 L (8.5-10.1) mg/dL Total Bilirubin 0.7 D (0.2-1.0) mg/dL AST 15 (15-37) U/L ALT 19 (12-78) U/L Alkaline Phosphatase 77 (46-116) U/L Total Protein 7.1 (6.4-8.2) g/dL Albumin 3.3 L (3.4-5.0) g/dL Globulin 3.8 H (2.3-3.5) g/dL Albumin/Globulin Ratio 0.9 L (1.2-2.2) Fluid Type Synovial fluid Fluid WBC 738 /ul Fluid RBC 8580 /ul Fluid Diff Comment Bloody fluid Fluid Mononuclear Cell 27 % Fl Polymorphonucl Cell 74 % Fluid Total Protein g/dL Fluid LDH IU/L Fluid Uric Acid mg/dL 02/26/18 Range/Units 18:35 WBC (4.5-11.0) K/uL RBC (4.30-5.90) M/uL Hgb (12.0-15.0) g/dL Hct (40.0-54.0) % MCV (80-98) fL MCH (27-31) pg MCHC (32-36) % Plt Count (150-400) K/uL Neut % (Auto) (36-66) % Lymph % (Auto) (24-44) % Arthur % (Auto) (2-6) % Eos % (Auto) (2-4) % Baso % (Auto) (0-1) % Sodium (140-148) mmol/L Potassium (3.6-5.2) mmol/L Chloride (100-108) mmol/L Carbon Dioxide (21-32) mmol/L Anion Gap (5.0-14.0) mmol/L BUN (7-18) mg/dL Creatinine (0.8-1.3) mg/dL Est Cr Clr Drug Dosing mL/min Estimated GFR (MDRD) (>60) Glucose (74-106) mg/dL Calcium (8.5-10.1) mg/dL Total Bilirubin (0.2-1.0) mg/dL AST (15-37) U/L ALT (12-78) U/L Alkaline Phosphatase (46-116) U/L Total Protein (6.4-8.2) g/dL Albumin (3.4-5.0) g/dL Globulin (2.3-3.5) g/dL Albumin/Globulin Ratio (1.2-2.2) Fluid Type Synovial fluid Fluid WBC /ul Fluid RBC /ul Fluid Diff Comment Fluid Mononuclear Cell % Fl Polymorphonucl Cell % Fluid Total Protein 4.6 g/dL Fluid LDH 309 IU/L Fluid Uric Acid 4.6 mg/dL Result Diagrams: 02/26/18 18:32 02/26/18 18:32 Luiz Results Last 24 hrs: Microbiology 02/26/18 18:35 Gram Stain - Final Joint / Synovial Fluid - Knee, Right 02/26/18 18:35 Gram Stain - Final Knee, Right - Problem List (1) Right knee pain SNOMED Code(s): 40324316 ICD Code: M25.561 - PAIN IN RIGHT KNEE Status: Acute Current Visit: Yes (2) Primary osteoarthritis of right knee SNOMED Code(s): 383014764469536, 101823445860290 ICD Code: M17.11 - UNILATERAL PRIMARY OSTEOARTHRITIS, RIGHT KNEE Status: Acute Current Visit: No (3) Status post right knee surgery SNOMED Code(s): 669829437 ICD Code: Z98.890 - OTHER SPECIFIED POSTPROCEDURAL STATES Status: Acute Current Visit: No Problem Details: Unicompartmental Problem List Initiated/Reviewed/Updated: Yes Orders Last 24hrs: Active Orders 24 hr Category Date Time Status Patient Status [ADT] Routine ADT 02/26/18 18:13 Active Ambulate [RC] ASDIRECTED Care 02/26/18 18:13 Active Head of Bed Elevation [RC] CONTINUOUS Care 02/26/18 18:13 Active Pneumonia Education [RC] UPON Care 02/26/18 18:13 Active RT Incentive Spirometry [RC] Q1HWA Care 02/26/18 18:13 Active Turn, Cough, Deep Breathe [RC] Q1HWA Care 02/26/18 18:13 Active Up ad Kaitlynn [RC] ASDIRECTED Care 02/26/18 18:12 Active Up to Chair [RC] TIDMEALS Care 02/26/18 18:13 Active Respiratory Care Assess and Treatment [CONS] Routine Cons 02/26/18 18:13 Active NPO After Midnight [Nothing per Oral After Midnight Diet 04/11/18 Breakfast Active Diet] [DIET] Regular Diet [DIET] Diet 02/26/18 Dinner Active CRYSTAL, SYNOVIAL/JOINT FL Routine Lab 02/26/18 18:35 Received CULTURE ANAEROBIC [RM] Routine Lab 02/26/18 18:35 Results CULTURE BLOOD [BC] Urgent Lab 02/26/18 18:15 Received CULTURE BLOOD [BC] Urgent Lab 02/26/18 18:25 Received CULTURE BODY FLUID + SMEAR [RM] Routine Lab 02/26/18 18:35 Results CULTURE WOUND + SMEAR [RM] Routine Lab 02/26/18 18:35 Results Acetaminophen/oxyCODONE [Percocet 325-5 MG] Med 02/26/18 18:12 Active 2 tab PO Q4H PRN Albuterol [Ventolin HFA] Med 02/26/18 18:20 Active 0 gm INH Q4H PRN Docusate Sodium [Colace] Med 02/26/18 18:12 Active 100 mg PO BID PRN Gabapentin [Neurontin] Med 02/26/18 21:00 Active 200 mg PO TID Metoprolol Tartrate [Lopressor] Med 02/26/18 21:00 Active 50 mg PO BID Morphine Med 02/26/18 18:12 Active 2 mg IVPUSH Q2H PRN Naloxone [Narcan] Med 02/26/18 18:12 Active 0.1 mg IVPUSH ONETIME PRN Ondansetron [Zofran] Med 02/26/18 18:12 Active 8 mg IVPUSH Q6H PRN Pantoprazole [ProTONIX] Med 02/28/18 07:30 Active 40 mg PO DAILY@0730 Sennosides [Senna] Med 02/26/18 18:12 Active 8.6 mg PO BID PRN Simvastatin [Zocor] Med 02/27/18 21:00 Active 40 mg PO BEDTIME Sodium Chloride 0.9% [Saline Flush] Med 02/26/18 18:10 Active 10 ml FLUSH ASDIRECTED PRN Zolpidem [Ambien] Med 02/26/18 18:12 Active 5 mg PO BEDTIME PRN ceFAZolin [Ancef] 2 gm Med 02/27/18 11:00 Active Premix Bag 1 bag IV Q8H hydrOXYzine HCl [Vistaril] Med 02/27/18 10:00 Active 50 mg IM Q6H traMADol [Ultram] Med 02/26/18 18:12 Active 100 mg PO Q4H PRN Blood Culture x2 Reflex Set [OM.PC] Urgent Oth 02/26/18 18:10 Ordered Ice Therapy [OM.PC] Routine Oth 02/26/18 18:12 Ordered Oral Care [OM.PC] BID Oth 02/26/18 18:15 Ordered Oral Care [OM.PC] BID Oth 02/27/18 18:15 Ordered Oral Care [OM.PC] BID Oth 02/28/18 18:15 Ordered Oral Care [OM.PC] BID Oth 03/01/18 18:15 Ordered Oral Care [OM.PC] BID Oth 03/02/18 18:15 Ordered Oral Care [OM.PC] BID Oth 03/03/18 18:15 Ordered Oral Care [OM.PC] BID Oth 03/04/18 18:15 Ordered Oral Care [OM.PC] BID Oth 03/05/18 18:15 Ordered Oral Care [OM.PC] BID Oth 03/06/18 18:15 Ordered Oral Care [OM.PC] BID Oth 03/07/18 18:15 Ordered Peripheral IV Insertion Adult [OM.PC] Urgent Oth 02/26/18 18:10 Ordered Sequential Compression Device [OM.PC] Routine Oth 02/26/18 18:12 Ordered Weight bearing status [OM.PC] Routine Oth 02/26/18 18:12 Ordered Resuscitation Status Routine Resus Stat 02/26/18 18:12 Ordered Medication Orders Albuterol (Ventolin Hfa) 0 gm INH Q4H PRN PRN Reason: Shortness of Breath Docusate Sodium (Colace) 100 mg PO BID PRN PRN Reason: Constipation Gabapentin (Neurontin) 200 mg PO TID [facility] Last Admin: 02/26/18 20:34 Dose: 200 mg Hydroxyzine HCl (Vistaril) 50 mg IM Q6H [facility] Cefazolin Sodium/Dextrose 2 gm (/ Premix) 50 mls @ 100 mls/hr IV Q8H [facility] Last Admin: 02/27/18 10:06 Dose: 100 mls/hr Metoprolol Tartrate (Lopressor) 50 mg PO BID [facility] Last Admin: 02/26/18 20:27 Dose: 50 mg Morphine Sulfate (Morphine) 2 mg IVPUSH Q2H PRN PRN Reason: Pain Last Admin: 02/27/18 02:41 Dose: 2 mg Naloxone HCl (Narcan) 0.1 mg IVPUSH ONETIME PRN PRN Reason: Oversedation Ondansetron HCl (Zofran) 8 mg IVPUSH Q6H PRN PRN Reason: Nausea/Vomiting Oxycodone/Acetaminophen (Percocet 325-5 Mg) 2 tab PO Q4H PRN PRN Reason: Pain Last Admin: 02/27/18 10:05 Dose: 2 tab Admin: 02/27/18 04:22 Dose: 2 tab Admin: 02/26/18 23:41 Dose: 2 tab Pantoprazole Sodium (Protonix) 40 mg PO DAILY@0730 [facility] Senna (Senna) 8.6 mg PO BID PRN PRN Reason: Constipation Simvastatin (Zocor) 40 mg PO BEDTIME [facility] Sodium Chloride (Saline Flush) 10 ml FLUSH ASDIRECTED PRN PRN Reason: Keep Vein Open Last Admin: 02/26/18 18:24 Dose: 10 ml Tramadol HCl (Ultram) 100 mg PO Q4H PRN PRN Reason: Pain Zolpidem Tartrate (Ambien) 5 mg PO BEDTIME PRN PRN Reason: Insomnia Assessment/Plan Comment:: A: R knee pain and swelling 4 wks status post right knee uka P: proceed with I and D, poly exchange lateral today
[2018-02-27] MEDS ORDERED: Gentamicin 40 MG/ML 2 ML Vial ONE (14:26)
[2018-02-27] MEDS ORDERED: fentaNYL 250 MCG/5 ML SDV ONE (14:28)
[2018-02-27] MEDS ORDERED: Succinylcholine 200 MG/10 ML MDV ONE (14:29)
[2018-02-27] MEDS ORDERED: Rocuronium 50 MG/5 ML Vial ONE (14:29)
[2018-02-27] MEDS ORDERED: Ondansetron 4 MG/2 ML SDV ONE (14:29)
[2018-02-27] MEDS ORDERED: Glycopyrrolate 0.2 MG/ML 5 ML MDV ONE (14:29)
[2018-02-27] MEDS ORDERED: Propofol 200 MG/20 ML SDV ONE (14:29)
[2018-02-27] MEDS ORDERED: Dexamethasone 4 MG/ML SDV ONE (14:29)
[2018-02-27] MEDS ORDERED: Neostigmine Methylsulfate 1 MG/ML 5 ML Syringe ONE (14:29)
[2018-02-27] MEDS: Metoprolol Tartrate 50 MG Tab PO SCH ×2 (14:31→20:44)
[2018-02-27] MEDS: Gabapentin 100 MG Cap PO SCH ×3 (14:31→20:45)
[2018-02-27] MEDS ORDERED: Albuterol/Ipratropium 3.0-0.5 MG/3 ML Neb Soln NEB ONE (16:35)
[2018-02-27] MEDS ORDERED: Albuterol/Ipratropium 3.0-0.5 MG/3 ML Neb Soln ONE (16:36)
[2018-02-27] MEDS ORDERED: Lactated Ringers 1,000 ML ONE (17:21)
[2018-02-27] MEDS ORDERED: fentaNYL 100 MCG/2 ML SDV ONE (17:57)
[2018-02-27] MEDS ORDERED: Meperidine PF 100 MG/ML Syringe IM ONE (18:30)
[2018-02-27] MEDS: Meperidine PF 100 MG/ML Syringe ONE ×2 (18:50→19:54)
[2018-02-27] MEDS: Simvastatin 20 MG Tab PO SCH (20:44)
[2018-02-27] MEDS: Lactated Ringers 1,000 ML IV SCH (22:36)
--- NOTE | 2018-02-28 02:01 | OR ---
DATE OF PROCEDURE: 02/27/2018 PREOPERATIVE DIAGNOSIS: Right knee suspected infection. POSTOPERATIVE DIAGNOSIS: Right knee suspected infection. PROCEDURES: 1. Right knee open arthrotomy. 2. Full synovectomy. 3. Irrigation and debridement. 4. Polyethylene exchange. ANESTHESIA: General endotracheal intubation. FLUIDS: Lactated Ringer's solution. ESTIMATED BLOOD LOSS: 25 mL. COMPLICATIONS: None. SPECIMENS: None. DISCHARGE DISPOSITION: Stable to PACU. INDICATIONS FOR THE PROCEDURE: The patient is well known to me. We performed a medially sided right unicompartmental knee arthroplasty 4 weeks ago. Last week, he did present with increasing pain and then I saw him 2 days ago in clinic. At that point in time, it looked like a mild cellulitis. He had full range of motion. I aspirated his knee, which showed no fluid. I then injected with vancomycin. We then put him on oral antibiotics. He did not do well with this in the office and we switched him to Augmentin and he came in the following day. I did a direct admit. We started him on IV Ancef 2 grams every 8 hours. I aspirated the knee, which had 30 mL of serosanguineous fluid. I then sent this to the lab for cultures that were no growth as of today and no organisms on Gram stain. I discussed our options with the patient and his . I recommended irrigation and debridement with open arthrotomy. They consented after risks and benefits of the procedure were given. DETAILS OF PROCEDURE: The patient was seen preoperatively by myself and the Anesthesia staff in the preoperative holding area. He was brought to the operative suite by the Anesthesia staff where general anesthesia was administered. A well-padded tourniquet was placed on the right lower extremity. The right lower extremity was then prepped and draped in a sterile manner. Time-out was called identifying the correct patient, correct procedure, the correct site, and antibiotics had begun within appropriate period of time. The right lower extremity was exsanguinated. Tourniquet was raised to 300 mmHg and let down after closure. The incision was made through the previous incision and then extended approximately 8 cm for increased visualization of the medial compartment. The knee did have serosanguineous fluid present at first inspection. This did look infected. I sent specimen and aerobic and anaerobic cultures. We then removed as much soft tissue as possible, performed a synovectomy with Bovie electrocautery, rongeurs, and curettes. I removed the polyethylene insert from the medial compartment and irrigated with 3 L of irrigation with the pulse lavage. I then put iodine in the wound and let it sit there for approximately 10 minutes. We then redraped and re-gloved and then we used clean instruments from there on out. We then irrigated with 2 L of sterile saline. I then used a liter of Bactisure from [facility], let that sit for a few minutes, and then irrigated another liter as per the directions. This cleaned up the knee very well. The idea of Bactisure is to remove the film layer. I then reinserted the same size polyethylene that was a new insert and then closed the incision with two #5 Ethibond interrupted sutures, #1 Stratafix for the arthrotomy, #2 Stratafix for the subcu, and then skin alexis followed by Betadine-soaked Adaptic and a sterile dressing. The patient was then allowed to awaken from general anesthesia and taken to the PACU in stable condition. Edmundo Alvarez DO /[id number]
[2018-02-28] MEDS: ceFAZolin 2 GM in Premix Bag 1 BAG IV SCH ×2 (02:12→12:49)
[2018-02-28] MEDS: Acetaminophen/oxyCODONE 325-5 MG Tab PO PRN ×5 (03:04→23:56)
[2018-02-28] MEDS: hydrOXYzine HCl 25 MG Tab PO PRN ×2 (04:40→10:44)
[2018-02-28] MEDS: Morphine 2 MG/ML Syringe IVPUSH PRN ×4 (07:28→22:01)
[2018-02-28] MEDS: Pantoprazole 40 MG Tab.CR PO SCH (08:30)
[2018-02-28] MEDS: Gabapentin 100 MG Cap PO SCH ×3 (08:30→21:45)
[2018-02-28] MEDS: Metoprolol Tartrate 50 MG Tab PO SCH ×2 (08:31→21:44)
[2018-02-28] MEDS: Docusate Sodium 100 MG Cap PO PRN (08:35)
[2018-02-28] MEDS: Sennosides 8.6 MG Tab PO PRN (08:35)
--- NOTE | 2018-02-28 08:38 | PCM.PN ---
- General Info Admission Dx/Problem (Free Text): Admission Diagnosis/Problem Admission Diagnosis/Problem Knee pain Functional Status: Reports: Tolerating Diet, Urinating - Review of Systems General: Reports: No Symptoms HEENT: Reports: No Symptoms Pulmonary: Reports: No Symptoms Cardiovascular: Reports: No Symptoms Gastrointestinal: Reports: No Symptoms Genitourinary: Reports: No Symptoms Musculoskeletal: Reports: Leg Pain, Joint Pain, Joint Swelling Skin: Reports: No Symptoms Neurological: Reports: No Symptoms Psychiatric: Reports: No Symptoms - Patient Data Vitals - Most Recent: Last Vital Signs Temp 97.1 F 02/28/18 07:00 Pulse 63 02/28/18 08:31 Resp 20 02/28/18 07:00 BP 132/76 02/28/18 08:31 Pulse Ox 90 L 02/28/18 07:37 Weight - Most Recent: 234 lb 15.992 oz I&O - Last 24 Hours: Intake & Output 02/27/18 02/28/18 02/28/18 22:59 06:59 14:59 Intake Total 1050 1083 Output Total 300 100 Balance 1050 783 -100 Luiz Results Last 24 Hours: Microbiology 02/27/18 17:49 Anaerobic Culture - Preliminary Knee, Right NO GROWTH AFTER 1 DAY 02/26/18 18:35 Gram Stain - Final Knee, Right Wound Culture - Preliminary NO GROWTH AFTER 1 DAY 02/26/18 18:35 Gram Stain - Final Joint / Synovial Fluid - Knee, Right Body Fluid Culture - Preliminary NO GROWTH AFTER 1 DAY Anaerobic Culture - Preliminary NO GROWTH AFTER 1 DAY 02/26/18 18:25 Aerobic Blood Culture - Preliminary Blood - Arm, Right NO GROWTH AFTER 1 DAY Anaerobic Blood Culture - Preliminary NO GROWTH AFTER 1 DAY 02/26/18 18:15 Aerobic Blood Culture - Preliminary Blood - Venous - Iv Start NO GROWTH AFTER 1 DAY Anaerobic Blood Culture - Preliminary NO GROWTH AFTER 1 DAY 02/27/18 17:49 Gram Stain - Final Knee, Right Med Orders - Current: Current Medications Albuterol (Ventolin Hfa) 0 gm INH Q4H PRN PRN Reason: Shortness of Breath Docusate Sodium (Colace) 100 mg PO BID PRN PRN Reason: Constipation Gabapentin (Neurontin) 200 mg PO TID HARESH Last Admin: 02/28/18 08:30 Dose: 200 mg Hydroxyzine HCl (Atarax) 50 mg PO Q6H PRN PRN Reason: Pain Last Admin: 02/28/18 04:40 Dose: 50 mg Cefazolin Sodium/Dextrose 2 gm (/ Premix) 50 mls @ 100 mls/hr IV Q8H PENDING S[facility] TO [facility] Last Admin: 02/28/18 02:12 Dose: 100 mls/hr Lactated Ringer's (Ringers, Lactated) 1,000 mls @ 75 mls/hr IV ASDIRECTED PENDING SALE TO [facility] Last Admin: 02/27/18 22:36 Dose: 75 mls/hr Metoprolol Tartrate (Lopressor) 50 mg PO BID [facility] Last Admin: 02/28/18 08:31 Dose: 50 mg Morphine Sulfate (Morphine) 2 mg IVPUSH Q2H PRN PRN Reason: Pain Last Admin: 02/28/18 07:28 Dose: 2 mg Naloxone HCl (Narcan) 0.1 mg IVPUSH ONETIME PRN PRN Reason: Oversedation Ondansetron HCl (Zofran) 8 mg IVPUSH Q6H PRN PRN Reason: Nausea/Vomiting Oxycodone/Acetaminophen (Percocet 325-5 Mg) 2 tab PO Q4H PRN PRN Reason: Pain Last Admin: 02/28/18 03:04 Dose: 2 tab Pantoprazole Sodium (Protonix) 40 mg PO DAILY@0730 [facility] Last Admin: 02/28/18 08:30 Dose: 40 mg Senna (Senna) 8.6 mg PO BID PRN PRN Reason: Constipation Simvastatin (Zocor) 40 mg PO BEDTIME [facility] Last Admin: 02/27/18 20:44 Dose: 40 mg Sodium Chloride (Saline Flush) 10 ml FLUSH ASDIRECTED PRN PRN Reason: Keep Vein Open Last Admin: 02/26/18 18:24 Dose: 10 ml Tramadol HCl (Ultram) 100 mg PO Q4H PRN PRN Reason: Pain Zolpidem Tartrate (Ambien) 5 mg PO BEDTIME PRN PRN Reason: Insomnia Discontinued Medications Albuterol/Ipratropium (Duoneb 3.0-0.5 Mg/3 Ml) 3 ml NEB ONETIME ONE Stop: 02/27/18 16:36 Last Admin: 02/27/18 16:40 Dose: 3 ml Albuterol/Ipratropium (Duoneb 3.0-0.5 Mg/3 Ml) Confirm Administered Dose 3 ml .ROUTE .STK-MED ONE Stop: 02/27/18 16:37 Last Admin: 02/27/18 19:24 Dose: Not Given Dexamethasone (Dexamethasone) Confirm Administered Dose 4 mg .ROUTE .STK-MED ONE Stop: 02/27/18 14:30 Fentanyl (Sublimaze) 50 mcg IVPUSH ONETIME ONE Stop: 02/26/18 18:13 Last Admin: 02/26/18 18:18 Dose: 50 mcg Fentanyl (Sublimaze) Confirm Administered Dose 250 mcg .ROUTE .STK-MED ONE Stop: 02/27/18 14:29 Fentanyl (Sublimaze) Confirm Administered Dose 100 mcg .ROUTE .STK-MED ONE Stop: 02/27/18 17:58 Gentamicin Sulfate (Gentamicin) Confirm Administered Dose 240 mg .ROUTE .STK- MED ONE Stop: 02/27/18 14:27 Glycopyrrolate (Robinul) Confirm Administered Dose 1 mg .ROUTE .STK-MED ONE Stop: 02/27/18 14:30 Hydroxyzine HCl (Vistaril) 50 mg IM Q6H PENDING SALE TO [facility] Last Admin: 02/27/18 08:58 Dose: Not Given Hydroxyzine HCl (Vistaril) 50 mg IM Q6H PEND[facility] Last Admin: 02/27/18 18:39 Dose: 50 mg Lactated Ringer's (Ringers, Lactated) 1,000 mls @ 125 mls/hr IV BOLUS ONE Stop: 02/27/18 02:09 Last Admin: 02/26/18 18:22 Dose: 125 mls/hr Cefazolin Sodium 2 gm/ Sodium (Chloride) 50 mls @ 100 mls/hr IV Q12H [facility]END[facility] Last Admin: 02/26/18 18:38 Dose: 100 mls/hr Cefazolin Sodium 2 gm/ Sodium (Chloride) 50 mls @ 100 mls/hr IV Q8H PENDING [facility] TO [facility] Last Admin: 02/26/18 21:33 Dose: Not Given Cefazolin Sodium 2 gm/ Sodium (Chloride) 50 mls @ 100 mls/hr IV Q8H PENDING [facility] TO [facility] Last Admin: 02/27/18 02:35 Dose: 100 mls/hr Lactated Ringer's (Ringers, Lactated) Confirm Administered Dose 1,000 mls @ as directed .ROUTE .STK-MED ONE Stop: 02/27/18 17:22 Meperidine HCl (Demerol) Confirm Administered Dose 100 mg .ROUTE .STK-MED ONE Stop: 02/27/18 18:54 Last Admin: 02/27/18 19:54 Dose: Not Given Meperidine HCl (Demerol) 100 mg IM ONETIME ONE Stop: 02/27/18 18:31 Neostigmine Methylsulfate (Neostigmine) Confirm Administered Dose 5 mg .ROUTE .STK-MED ONE Stop: 02/27/18 14:30 Non-Formulary Medication (Simvastatin [Zocor]) 40 mg PO BEDTIME [facility]ENDING [facility] TO [facility] Last Admin: 02/26/18 20:30 Dose: Not Given Ondansetron HCl (Zofran) Confirm Administered Dose 4 mg .ROUTE .STK-MED ONE Stop: 02/27/18 14:30 Pantoprazole Sodium (Protonix) 40 mg PO DAILY [facility]ENDING [facility] Last Admin: 02/27/18 14:32 Dose: Not Given Propofol (Diprivan 20 Ml) Confirm Administered Dose 200 mg .ROUTE .STK-MED ONE Stop: 02/27/18 14:30 Rocuronium [place] (Zemuron) Confirm Administered Dose 50 mg .ROUTE .STK-MED ONE Stop: 02/27/18 14:30 Simvastatin (Zocor) Confirm Administered Dose 40 mg .ROUTE .STK-MED ONE Stop: 02/26/18 20:14 Last Admin: 02/26/18 20:28 Dose: 40 mg Succinylcholine Chloride (Quelicin) Confirm Administered Dose 200 mg .ROUTE .STK -MED ONE Stop: 02/27/18 14:30 - Exam General: Alert, Oriented HEENT: Pupils Equal, Mucous Membr. Moist/Gann Neck: Supple Lungs: Normal Respiratory Effort Extremities: Joint Swelling, Leg Pain, Limited Range of Motion Peripheral Pulses: 2+: Dorsalis Pedis (L), Dorsalis Pedis (R) Skin: Warm, Dry, Intact Wound/Incisions: Healing Well, Dressing Dry and Intact, No Drainage Neurological: No New Focal Deficit - Problem List & Annotations (1) Right knee pain SNOMED Code(s): 54813861 Code(s): M25.561 - PAIN IN RIGHT KNEE Status: Acute Current Visit: Yes (2) Primary osteoarthritis of right knee SNOMED Code(s): 788999576778723, 589614729238620 Code(s): M17.11 - UNILATERAL PRIMARY OSTEOARTHRITIS, RIGHT KNEE Status: Acute Current Visit: No (3) Status post right knee surgery SNOMED Code(s): 740624535 Code(s): Z98.890 - OTHER SPECIFIED POSTPROCEDURAL STATES Status: Acute Current Visit: No Annotation/Comment:: Unicompartmental - Problem List Review Problem List Initiated/Reviewed/Updated: Yes - My Orders Last 24 Hours: My Active Orders 02/27/18 11:00 ceFAZolin [Ancef] 2 gm Premix Bag 1 bag IV Q8H 02/27/18 16:36 RT Aerosol Therapy [RC] ASDIRECTED 02/27/18 17:49 CULTURE ANAEROBIC [RM] Routine CULTURE WOUND + SMEAR [RM] Routine 02/27/18 18:15 Oral Care [OM.PC] BID 02/27/18 19:59 Telemetry Monitoring [Cardiac Monitoring] [RC] .As Directed 02/27/18 20:00 Overnight Pulse Oximetry [RC] Click to Edit Pulse Oximetry Continuous Monitoring [OM.PC] Routine 02/27/18 20:13 hydrOXYzine HCl [Atarax] 50 mg PO Q6H PRN 02/27/18 20:30 Lactated Ringers [Ringers, Lactated] 1,000 ml IV ASDIRECTED 02/27/18 21:00 Simvastatin [Zocor] 40 mg PO BEDTIME 02/27/18 Dinner Advance Diet Instructions [DIET] 02/28/18 07:30 Pantoprazole [ProTONIX] 40 mg PO DAILY@0730 02/28/18 08:18 OT Evaluation and Treatment [CONS] Routine PT Evaluation and Treatment [CONS] Routine 02/28/18 08:19 PICC Line [Central Line Insert Checklist] [RC] ASDIRECTED 02/28/18 18:15 Oral Care [OM.PC] BID 03/01/18 18:15 Oral Care [OM.PC] BID 03/02/18 18:15 Oral Care [OM.PC] BID 03/03/18 18:15 Oral Care [OM.PC] BID 03/04/18 18:15 Oral Care [OM.PC] BID 03/05/18 18:15 Oral Care [OM.PC] BID 03/06/18 18:15 Oral Care [OM.PC] BID 03/07/18 18:15 Oral Care [OM.PC] BID - Plan Plan:: A: R knee pain and swelling 4 wks status post right knee uka, status post I&D yesterday P: Place PICC line today, PT/OT, pain control, restart Plavix
[2018-02-28] MEDS ORDERED: Vancomycin 1 GM SDV IV SCH (09:00)
[2018-02-28] MEDS ORDERED: Albuterol 0.083% 2.5 MG/3 ML Neb Soln NEB PRN (10:08)
--- NOTE | 2018-02-28 10:11 | PCM.PN ---
- General Info Date of Service: 02/28/18 Functional Status: Reports: Tolerating Diet - Review of Systems Musculoskeletal: Reports: Leg Pain Systems Review Comment:: There were no acute events overnight. He continues to report significant pain in his right knee and is unable to bear any weight. He has continued to require supplemental oxygen at 2-3 L/m by [employer]. He does not feel short of breath. He has not been receiving any nebulizers and thinks this is why his oxygenation has been suboptimal. He is receiving IV antibiotics for suspected right knee infection. Cultures are pending at this time. - Patient Data Vitals - Most Recent: Last Vital Signs Temp 36.2 C 02/28/18 07:00 Pulse 63 02/28/18 08:31 Resp 20 02/28/18 07:00 BP 132/76 02/28/18 08:31 Pulse Ox 90 L 02/28/18 07:37 Weight - Most Recent: 106.594 kg I&O - Last 24 Hours: Intake & Output 02/27/18 02/28/18 02/28/18 22:59 06:59 14:59 Intake Total 1050 1083 Output Total 300 100 Balance 1050 783 -100 Luiz Results Last 24 Hours: Microbiology 02/27/18 17:49 Anaerobic Culture - Preliminary Knee, Right NO GROWTH AFTER 1 DAY 02/26/18 18:35 Gram Stain - Final Knee, Right Wound Culture - Preliminary NO GROWTH AFTER 1 DAY 02/26/18 18:35 Gram Stain - Final Joint / Synovial Fluid - Knee, Right Body Fluid Culture - Preliminary NO GROWTH AFTER 1 DAY Anaerobic Culture - Preliminary NO GROWTH AFTER 1 DAY 02/26/18 18:25 Aerobic Blood Culture - Preliminary Blood - Arm, Right NO GROWTH AFTER 1 DAY Anaerobic Blood Culture - Preliminary NO GROWTH AFTER 1 DAY 02/26/18 18:15 Aerobic Blood Culture - Preliminary Blood - Venous - Iv Start NO GROWTH AFTER 1 DAY Anaerobic Blood Culture - Preliminary NO GROWTH AFTER 1 DAY 02/27/18 17:49 Gram Stain - Final Knee, Right Med Orders - Current: Current Medications Albuterol (Ventolin Hfa) 0 gm INH Q4H PRN PRN Reason: Shortness of Breath Albuterol (Proventil Neb Soln) 2.5 mg NEB Q4H PRN PRN Reason: Shortness of Breath Albuterol/Ipratropium (Duoneb 3.0-0.5 Mg/3 Ml) 3 ml NEB QIDRT [facility] Aspirin (Aspirin) 81 mg PO DAILY [facility] Clopidogrel Bisulfate (Plavix) 75 mg PO DAILY [facility] Docusate Sodium (Colace) 100 mg PO BID PRN PRN Reason: Constipation Last Admin: 02/28/18 08:35 Dose: 100 mg Gabapentin (Neurontin) 200 mg PO TID [facility] Last Admin: 02/28/18 08:30 Dose: 200 mg Hydroxyzine HCl (Atarax) 50 mg PO Q6H PRN PRN Reason: Pain Last Admin: 02/28/18 04:40 Dose: 50 mg Cefazolin Sodium/Dextrose 2 gm (/ Premix) 50 mls @ 100 mls/hr IV Q8H [facility] Last Admin: 02/28/18 02:12 Dose: 100 mls/hr Lactated Ringer's (Ringers, Lactated) 1,000 mls @ 75 mls/hr IV ASDIRECTED [facility] Last Admin: 02/27/18 22:36 Dose: 75 mls/hr Vancomycin HCl 1.5 gm/ Sodium (Chloride) 250 mls @ 165 mls/hr IV Q12H [facility] Last Admin: 02/28/18 10:01 Dose: 165 mls/hr Metoprolol Tartrate (Lopressor) 50 mg PO BID [facility] Last Admin: 02/28/18 08:31 Dose: 50 mg Morphine Sulfate (Morphine) 2 mg IVPUSH Q2H PRN PRN Reason: Pain Last Admin: 02/28/18 07:28 Dose: 2 mg Naloxone HCl (Narcan) 0.1 mg IVPUSH ONETIME PRN PRN Reason: Oversedation Ondansetron HCl (Zofran) 8 mg IVPUSH Q6H PRN PRN Reason: Nausea/Vomiting Oxycodone/Acetaminophen (Percocet 325-5 Mg) 2 tab PO Q4H PRN PRN Reason: Pain Last Admin: 02/28/18 08:35 Dose: 2 tab Pantoprazole Sodium (Protonix) 40 mg PO DAILY@0730 [facility] Last Admin: 02/28/18 08:30 Dose: 40 mg Senna (Senna) 8.6 mg PO BID PRN PRN Reason: Constipation Last Admin: 02/28/18 08:35 Dose: 8.6 mg Simvastatin (Zocor) 40 mg PO BEDTIME [facility] Last Admin: 02/27/18 20:44 Dose: 40 mg Sodium Chloride (Saline Flush) 10 ml FLUSH ASDIRECTED PRN PRN Reason: Keep Vein Open Last Admin: 02/26/18 18:24 Dose: 10 ml Tramadol HCl (Ultram) 100 mg PO Q4H PRN PRN Reason: Pain Vancomycin HCl (Vancomycin) 0 gm IV .PHARMACY TO DOSE HARESH Stop: 02/28/18 14:00 Zolpidem Tartrate (Ambien) 5 mg PO BEDTIME PRN PRN Reason: Insomnia Discontinued Medications Albuterol/Ipratropium (Duoneb 3.0-0.5 Mg/3 Ml) 3 ml NEB ONETIME ONE Stop: 02/27/18 16:36 Last Admin: 02/27/18 16:40 Dose: 3 ml Albuterol/Ipratropium (Duoneb 3.0-0.5 Mg/3 Ml) Confirm Administered Dose 3 ml .ROUTE .STK-MED ONE Stop: 02/27/18 16:37 Last Admin: 02/27/18 19:24 Dose: Not Given Dexamethasone (Dexamethasone) Confirm Administered Dose 4 mg .ROUTE .STK-MED ONE Stop: 02/27/18 14:30 Fentanyl (Sublimaze) 50 mcg IVPUSH ONETIME ONE Stop: 02/26/18 18:13 Last Admin: 02/26/18 18:18 Dose: 50 mcg Fentanyl (Sublimaze) Confirm Administered Dose 250 mcg .ROUTE .STK-MED ONE Stop: 02/27/18 14:29 Fentanyl (Sublimaze) Confirm Administered Dose 100 mcg .ROUTE .STK-MED ONE Stop: 02/27/18 17:58 Gentamicin Sulfate (Gentamicin) Confirm Administered Dose 240 mg .ROUTE .STK- MED ONE Stop: 02/27/18 14:27 Glycopyrrolate (Robinul) Confirm Administered Dose 1 mg .ROUTE .STK-MED ONE Stop: 02/27/18 14:30 Hydroxyzine HCl (Vistaril) 50 mg IM Q6H [facility] Last Admin: 02/27/18 08:58 Dose: Not Given Hydroxyzine HCl (Vistaril) 50 mg IM Q6H [facility] Last Admin: 02/27/18 18:39 Dose: 50 mg Lactated Ringer's (Ringers, Lactated) 1,000 mls @ 125 mls/hr IV BOLUS ONE Stop: 02/27/18 02:09 Last Admin: 02/26/18 18:22 Dose: 125 mls/hr Cefazolin Sodium 2 gm/ Sodium (Chloride) 50 mls @ 100 mls/hr IV Q12H [facility] Last Admin: 02/26/18 18:38 Dose: 100 mls/hr Cefazolin Sodium 2 gm/ Sodium (Chloride) 50 mls @ 100 mls/hr IV Q8H [facility] Last Admin: 02/26/18 21:33 Dose: Not Given Cefazolin Sodium 2 gm/ Sodium (Chloride) 50 mls @ 100 mls/hr IV Q8H [facility] Last Admin: 02/27/18 02:35 Dose: 100 mls/hr Lactated Ringer's (Ringers, Lactated) Confirm Administered Dose 1,000 mls @ as directed .ROUTE .STK-MED ONE Stop: 02/27/18 17:22 Meperidine HCl (Demerol) Confirm Administered Dose 100 mg .ROUTE .STK-MED ONE Stop: 02/27/18 18:54 Last Admin: 02/27/18 19:54 Dose: Not Given Meperidine HCl (Demerol) 100 mg IM ONETIME ONE Stop: 02/27/18 18:31 Last Admin: 02/28/18 08:50 Dose: Not Given Neostigmine Methylsulfate (Neostigmine) Confirm Administered Dose 5 mg .ROUTE .STK-MED ONE Stop: 02/27/18 14:30 Non-Formulary Medication (Simvastatin [Zocor]) 40 mg PO BEDTIME [facility] Last Admin: 02/26/18 20:30 Dose: Not Given Ondansetron HCl (Zofran) Confirm Administered Dose 4 mg .ROUTE .STK-MED ONE Stop: 02/27/18 14:30 Pantoprazole Sodium (Protonix) 40 mg PO DAILY [facility] Last Admin: 02/27/18 14:32 Dose: Not Given Propofol (Diprivan 20 Ml) Confirm Administered Dose 200 mg .ROUTE .STK-MED ONE Stop: 02/27/18 14:30 Rocuronium [place] (Zemuron) Confirm Administered Dose 50 mg .ROUTE .STK-MED ONE Stop: 02/27/18 14:30 Simvastatin (Zocor) Confirm Administered Dose 40 mg .ROUTE .STK-MED ONE Stop: 02/26/18 20:14 Last Admin: 02/26/18 20:28 Dose: 40 mg Succinylcholine Chloride (Quelicin) Confirm Administered Dose 200 mg .ROUTE .STK -MED ONE Stop: 02/27/18 14:30 - Exam Quality Assessment: Supplemental Oxygen General: Alert, Oriented, Cooperative, No Acute Distress Neck: Supple Lungs: Clear to Auscultation, Normal Respiratory Effort. No: Wheezing Cardiovascular: Regular Rate, Regular Rhythm GI/Abdominal Exam: No Distention Extremities: No Pedal Edema, Other (right knee wrapped in NING) Psy/Mental Status: Alert, Normal Affect - Problem List Review Problem List Initiated/Reviewed/Updated: Yes - My Orders Last 24 Hours: My Active Orders 02/28/18 10:08 RT Aerosol Therapy [RC] ASDIRECTED Albuterol [Proventil Neb Soln] 2.5 mg NEB Q4H PRN 02/28/18 10:10 Discontinue Telemetry Monitoring [Cardiac Monitoring Discontinue] [RC] Click to Edit 02/28/18 11:00 Albuterol/Ipratropium [DuoNeb 3.0-0.5 MG/3 ML] 3 ml NEB QIDRT 03/01/18 09:00 Aspirin 81 mg PO DAILY Clopidogrel [Plavix] 75 mg PO DAILY - Plan Plan:: ASSESSMENT AND PLAN Suspected septic arthritis, right knee - increased pain, redness and swelling raising concern for infection. He was taken to the operating room yesterday for washout of the joint. Cultures are pending at this time. Tolerating current antibiotics. A PICC line will be placed with the plan for prolonged outpatient antibiotics. -Postoperative cares per orthopedic team -Continue vancomycin -Agree with PICC line placement for long-term antibiotics -Pain control -Physical therapy Hypoxic respiratory failure - history of COPD. No evidence for infection or acute exacerbation. Seems to be slowly improving. -Supplement oxygen as needed -Scheduled and as needed nebulizers -Increase activity as tolerated Admission justification - patient will be transitioned to inpatient status with septic arthritis requiring additional IV antibiotics. Disposition - I would anticipate he will be able to be discharged home in the next few days. Angus Bustamante M.D.
[2018-02-28] MEDS: Albuterol/Ipratropium 3.0-0.5 MG/3 ML Neb Soln NEB SCH ×3 (11:07→21:40)
[2018-02-28] MEDS: traMADol 50 MG Tab PO PRN ×2 (11:10→15:30)
[2018-02-28] MEDS: Lactated Ringers 1,000 ML IV SCH (15:32)
[2018-02-28] MEDS: Simvastatin 20 MG Tab PO SCH (21:45)
[2018-03-01] MEDS: Acetaminophen/oxyCODONE 325-5 MG Tab PO PRN (05:17)
[2018-03-01] MEDS: Albuterol/Ipratropium 3.0-0.5 MG/3 ML Neb Soln NEB SCH ×5 (05:18→20:58)
[2018-03-01] MEDS: Morphine 2 MG/ML Syringe IVPUSH PRN ×4 (07:22→22:27)
[2018-03-01] MEDS: Lactated Ringers 1,000 ML IV SCH (07:22)
[2018-03-01] MEDS: Pantoprazole 40 MG Tab.CR PO SCH (07:27)
--- NOTE | 2018-03-01 09:21 | CT ---
CT right knee. Indication: Pain. Total DLP 442. Lines: Surgical staple line anterior aspect of the knee. There is a large suprapatellar complex joint effusion with numerous foci of air. Patella is intact without erosive change. Medial compartment hem iarthroplasty. The femoral component appears well corporate. The femur is intact. No erosive change. The tibia is intact. The tibial component appears well incorporated. No fracture. The fibula is intac t. The spacer is not well-visualized due to beam hardening artifact from the prosthesis. There is sub cutaneous edema anterior to the leg and fluid as well. Fluid anterior to the anterolateral compartmen t of the leg as well. Impression: 1. No evidence for erosive change or evidence for fracture. Medial compartment hemiarthroplasty appea rs well-corticated. 2. Large joint effusion which appears complex with numerous foci of air. This may be postsurgical onl y. Infectious fluid cannot be excluded based on this examination.
[2018-03-01] MEDS: Aspirin 81 MG Tab.Chew PO SCH (09:40)
[2018-03-01] MEDS: Clopidogrel 75 MG Tab PO SCH (09:40)
[2018-03-01] MEDS: Gabapentin 100 MG Cap PO SCH ×3 (09:40→20:58)
[2018-03-01] MEDS: Metoprolol Tartrate 50 MG Tab PO SCH ×2 (09:40→21:03)
[2018-03-01] MEDS: traMADol 50 MG Tab PO PRN (09:44)
[2018-03-01] MEDS: Sennosides 8.6 MG Tab PO PRN ×2 (09:44→21:02)
[2018-03-01] MEDS ORDERED: Morphine 15 MG Tab PO PRN (10:05)
--- NOTE | 2018-03-01 10:09 | PCM.PN ---
- General Info Date of Service: 03/01/18 Functional Status: Reports: Tolerating Diet. Denies: Pain Controlled, Ambulating - Review of Systems General: Denies: Fever Musculoskeletal: Reports: Joint Pain (right knee) Systems Review Comment:: No acute events overnight but pain control has remained suboptimal. He continues to be unable to bear weight and has severe pain trying to flex his leg at the hip. He has not had any fevers. He is off supplemental oxygen as of this morning. Cultures remained negative. CT scan of the knee last night did not reveal acute changes other than postoperative findings. - Patient Data Vitals - Most Recent: Last Vital Signs Temp 36.6 C 03/01/18 07:35 Pulse 80 03/01/18 09:40 Resp 20 03/01/18 07:35 BP 133/76 03/01/18 09:40 Pulse Ox 85 L 03/01/18 07:52 Weight - Most Recent: 106.594 kg I&O - Last 24 Hours: Intake & Output 02/28/18 03/01/18 03/01/18 22:59 06:59 14:59 Intake Total 2046 885 240 Output Total 300 Balance 2046 585 240 Lab Results Last 24 Hours: Laboratory Results - last 24 hr 02/26/18 Range/Units 18:35 Synovial Crystals None seen Luiz Results Last 24 Hours: Microbiology 02/27/18 17:49 Anaerobic Culture - Preliminary Knee, Right NO GROWTH AFTER 2 DAYS 02/26/18 18:35 Gram Stain - Final Knee, Right Wound Culture - Preliminary NO GROWTH AFTER 2 DAYS 02/26/18 18:35 Gram Stain - Final Joint / Synovial Fluid - Knee, Right Body Fluid Culture - Preliminary NO GROWTH AFTER 2 DAYS Anaerobic Culture - Preliminary NO GROWTH AFTER 2 DAYS 02/27/18 17:49 Gram Stain - Final Knee, Right Wound Culture - Preliminary NO GROWTH AFTER 1 DAY 02/26/18 18:25 Aerobic Blood Culture - Preliminary Blood - Arm, Right NO GROWTH AFTER 2 DAYS Anaerobic Blood Culture - Preliminary NO GROWTH AFTER 2 DAYS 02/26/18 18:15 Aerobic Blood Culture - Preliminary Blood - Venous - Iv Start NO GROWTH AFTER 2 DAYS Anaerobic Blood Culture - Preliminary NO GROWTH AFTER 2 DAYS Med Orders - Current: Current Medications Albuterol (Ventolin Hfa) 0 gm INH Q4H PRN PRN Reason: Shortness of Breath Albuterol (Proventil Neb Soln) 2.5 mg NEB Q4H PRN PRN Reason: Shortness of Breath Albuterol/Ipratropium (Duoneb 3.0-0.5 Mg/3 Ml) 3 ml NEB QIDRT [facility] Last Admin: 03/01/18 07:18 Dose: Not Given Aspirin (Aspirin) 81 mg PO DAILY [facility] Last Admin: 03/01/18 09:40 Dose: 81 mg Clopidogrel Bisulfate (Plavix) 75 mg PO DAILY [facility] Last Admin: 03/01/18 09:40 Dose: 75 mg Docusate Sodium (Colace) 100 mg PO BID PRN PRN Reason: Constipation Last Admin: 02/28/18 08:35 Dose: 100 mg Gabapentin (Neurontin) 200 mg PO TID [facility] Last Admin: 03/01/18 09:40 Dose: 200 mg Hydroxyzine HCl (Atarax) 50 mg PO Q6H PRN PRN Reason: Pain Last Admin: 02/28/18 10:44 Dose: 50 mg Lactated Ringer's (Ringers, Lactated) 1,000 mls @ 75 mls/hr IV ASDIRECTED [facility] Last Admin: 03/01/18 07:22 Dose: 75 mls/hr Vancomycin HCl 1.5 gm/ Sodium (Chloride) 250 mls @ 165 mls/hr IV Q12H [facility] Last Admin: 02/28/18 21:47 Dose: 165 mls/hr Metoprolol Tartrate (Lopressor) 50 mg PO BID [facility] Last Admin: 03/01/18 09:40 Dose: 50 mg Morphine Sulfate (Morphine) 2 mg IVPUSH Q2H PRN PRN Reason: Pain Last Admin: 03/01/18 07:22 Dose: 2 mg Naloxone HCl (Narcan) 0.1 mg IVPUSH ONETIME PRN PRN Reason: Oversedation Ondansetron HCl (Zofran) 8 mg IVPUSH Q6H PRN PRN Reason: Nausea/Vomiting Pantoprazole Sodium (Protonix) 40 mg PO DAILY@0730 [facility] Last Admin: 03/01/18 07:27 Dose: 40 mg Senna (Senna) 8.6 mg PO BID PRN PRN Reason: Constipation Last Admin: 03/01/18 09:44 Dose: 8.6 mg Simvastatin (Zocor) 40 mg PO BEDTIME [facility] Last Admin: 02/28/18 21:45 Dose: 40 mg Sodium Chloride (Saline Flush) 10 ml FLUSH ASDIRECTED PRN PRN Reason: Keep Vein Open Last Admin: 02/26/18 18:24 Dose: 10 ml Tramadol HCl (Ultram) 100 mg PO Q4H PRN PRN Reason: Pain Last Admin: 03/01/18 09:44 Dose: 100 mg Zolpidem Tartrate (Ambien) 5 mg PO BEDTIME PRN PRN Reason: Insomnia Discontinued Medications Albuterol/Ipratropium (Duoneb 3.0-0.5 Mg/3 Ml) 3 ml NEB ONETIME ONE Stop: 02/27/18 16:36 Last Admin: 02/27/18 16:40 Dose: 3 ml Albuterol/Ipratropium (Duoneb 3.0-0.5 Mg/3 Ml) Confirm Administered Dose 3 ml .ROUTE .STK-MED ONE Stop: 02/27/18 16:37 Last Admin: 02/27/18 19:24 Dose: Not Given Dexamethasone (Dexamethasone) Confirm Administered Dose 4 mg .ROUTE .STK-MED ONE Stop: 02/27/18 14:30 Fentanyl (Sublimaze) 50 mcg IVPUSH ONETIME ONE Stop: 02/26/18 18:13 Last Admin: 02/26/18 18:18 Dose: 50 mcg Fentanyl (Sublimaze) Confirm Administered Dose 250 mcg .ROUTE .STK-MED ONE Stop: 02/27/18 14:29 Fentanyl (Sublimaze) Confirm Administered Dose 100 mcg .ROUTE .STK-MED ONE Stop: 02/27/18 17:58 Gentamicin Sulfate (Gentamicin) Confirm Administered Dose 240 mg .ROUTE .STK- MED ONE Stop: 02/27/18 14:27 Glycopyrrolate (Robinul) Confirm Administered Dose 1 mg .ROUTE .STK-MED ONE Stop: 02/27/18 14:30 Hydroxyzine HCl (Vistaril) 50 mg IM Q6H [facility] Last Admin: 02/27/18 08:58 Dose: Not Given Hydroxyzine HCl (Vistaril) 50 mg IM Q6H [facility] Last Admin: 02/27/18 18:39 Dose: 50 mg Lactated Ringer's (Ringers, Lactated) 1,000 mls @ 125 mls/hr IV BOLUS ONE Stop: 02/27/18 02:09 Last Admin: 02/26/18 18:22 Dose: 125 mls/hr Cefazolin Sodium 2 gm/ Sodium (Chloride) 50 mls @ 100 mls/hr IV Q12H [facility] Last Admin: 02/26/18 18:38 Dose: 100 mls/hr Cefazolin Sodium 2 gm/ Sodium (Chloride) 50 mls @ 100 mls/hr IV Q8H [facility] Last Admin: 02/26/18 21:33 Dose: Not Given Cefazolin Sodium 2 gm/ Sodium (Chloride) 50 mls @ 100 mls/hr IV Q8H [facility] Last Admin: 02/27/18 02:35 Dose: 100 mls/hr Cefazolin Sodium/Dextrose 2 gm (/ Premix) 50 mls @ 100 mls/hr IV Q8H [facility] Last Admin: 02/28/18 12:49 Dose: 100 mls/hr Lactated Ringer's (Ringers, Lactated) Confirm Administered Dose 1,000 mls @ as directed .ROUTE .STK-MED ONE Stop: 02/27/18 17:22 Meperidine HCl (Demerol) Confirm Administered Dose 100 mg .ROUTE .STK-MED ONE Stop: 02/27/18 18:54 Last Admin: 02/27/18 19:54 Dose: Not Given Meperidine HCl (Demerol) 100 mg IM ONETIME ONE Stop: 02/27/18 18:31 Last Admin: 02/28/18 08:50 Dose: Not Given Neostigmine Methylsulfate (Neostigmine) Confirm Administered Dose 5 mg .ROUTE .STK-MED ONE Stop: 02/27/18 14:30 Non-Formulary Medication (Simvastatin [Zocor]) 40 mg PO BEDTIME [facility] Last Admin: 02/26/18 20:30 Dose: Not Given Ondansetron HCl (Zofran) Confirm Administered Dose 4 mg .ROUTE .STK-MED ONE Stop: 02/27/18 14:30 Oxycodone/Acetaminophen (Percocet 325-5 Mg) 2 tab PO Q4H PRN PRN Reason: Pain Last Admin: 03/01/18 05:17 Dose: 2 tab Pantoprazole Sodium (Protonix) 40 mg PO DAILY [facility] Last Admin: 02/27/18 14:32 Dose: Not Given Propofol (Diprivan 20 Ml) Confirm Administered Dose 200 mg .ROUTE .STK-MED ONE Stop: 02/27/18 14:30 Rocuronium [place] (Zemuron) Confirm Administered Dose 50 mg .ROUTE .STK-MED ONE Stop: 02/27/18 14:30 Simvastatin (Zocor) Confirm Administered Dose 40 mg .ROUTE .STK-MED ONE Stop: 02/26/18 20:14 Last Admin: 02/26/18 20:28 Dose: 40 mg Succinylcholine Chloride (Quelicin) Confirm Administered Dose 200 mg .ROUTE .STK -MED ONE Stop: 02/27/18 14:30 Vancomycin HCl (Vancomycin) 0 gm IV .PHARMACY TO DOSE [facility] Stop: 02/28/18 14:00 - Exam Quality Assessment: No: Supplemental Oxygen General: Alert, Oriented, Cooperative, No Acute Distress Neck: Supple Lungs: Normal Respiratory Effort GI/Abdominal Exam: Soft, No Distention Extremities: No Pedal Edema, Other (right knee wrapped in NING. right thigh swollen and tender to palpation ) Psy/Mental Status: Alert, Normal Affect - Problem List Review Problem List Initiated/Reviewed/Updated: Yes - My Orders Last 24 Hours: My Active Orders 02/28/18 10:08 RT Aerosol Therapy [RC] ASDIRECTED Albuterol [Proventil Neb Soln] 2.5 mg NEB Q4H PRN 02/28/18 11:00 Albuterol/Ipratropium [DuoNeb 3.0-0.5 MG/3 ML] 3 ml NEB QIDRT 02/28/18 16:28 Admission Status [Patient Status] [ADT] Routine 03/01/18 09:00 Aspirin 81 mg PO DAILY Clopidogrel [Plavix] 75 mg PO DAILY 03/01/18 10:05 Acetaminophen [Tylenol] 650 mg PO Q4H PRN Morphine 30 mg PO Q4H PRN 03/01/18 10:08 tiZANidine [Zanaflex] 2 mg PO Q6H PRN 03/01/18 11:00 Convert IV to Saline Lock [OM.PC] Routine 03/02/18 05:00 BASIC METABOLIC PANEL,BMP [CHEM] Timed CBC W/O DIFF,HEMOGRAM [HEME] Timed (1) - Plan Plan:: ASSESSMENT AND PLAN Suspected septic arthritis, right knee - increased pain, redness and swelling raising concern for infection. Still having severe pain and unable to bear weight with pain in the knee as well as right thigh. -Postoperative cares per orthopedic team -Continue vancomycin, anticipate 3 weeks of therapy -Agree with PICC line placement for long-term antibiotics -Pain control -Physical therapy Hypoxic respiratory failure - history of COPD. No evidence for infection or acute exacerbation. Off oxygen as of this morning -Supplement oxygen as needed -Scheduled and as needed nebulizers -Increase activity as tolerated Admission justification - patient will be transitioned to inpatient status with septic arthritis requiring additional IV antibiotics. He is not safe for outpatient management at this time as he is unable to bear weight. Disposition - I would anticipate he will be able to be discharged home in the next few days. Angus Bustamante M.D.
[2018-03-01] MEDS ORDERED: tiZANidine 2 MG Tab PO PRN (10:30)
[2018-03-01] MEDS ORDERED: tiZANidine 4 MG Tab PO PRN (12:10)
[2018-03-01] MEDS: Acetaminophen 325 MG Tab PO PRN ×2 (12:52→19:25)
[2018-03-01] MEDS: oxyCODONE 5 MG Tab PO PRN ×2 (12:53→19:24)
[2018-03-01] MEDS ORDERED: tiZANidine 2 MG Tab PO ONE (13:00)
[2018-03-01] MEDS: Simvastatin 20 MG Tab PO SCH (20:59)
[2018-03-01] MEDS: Docusate Sodium 100 MG Cap PO PRN (21:03)
[2018-03-02] MEDS: Acetaminophen 325 MG Tab PO PRN ×5 (01:41→20:32)
[2018-03-02] MEDS: oxyCODONE 5 MG Tab PO PRN ×5 (01:42→20:32)
[2018-03-02] MEDS: Albuterol/Ipratropium 3.0-0.5 MG/3 ML Neb Soln NEB SCH ×5 (07:17→21:00)
[2018-03-02] MEDS: Pantoprazole 40 MG Tab.CR PO SCH (07:41)
[2018-03-02] MEDS: Metoprolol Tartrate 50 MG Tab PO SCH ×2 (08:34→20:31)
[2018-03-02] MEDS: Clopidogrel 75 MG Tab PO SCH (08:35)
[2018-03-02] MEDS: Gabapentin 100 MG Cap PO SCH ×3 (08:35→20:31)
[2018-03-02] MEDS: Aspirin 81 MG Tab.Chew PO SCH (08:35)
--- NOTE | 2018-03-02 09:54 | PCM.PN ---
- General Info Date of Service: 03/02/18 Functional Status: Reports: Pain Controlled, Tolerating Diet, Ambulating - Review of Systems General: Reports: Weakness Musculoskeletal: Reports: Joint Pain (right knee) Systems Review Comment:: No acute events overnight. Right knee and thigh pain have improved some. He is able to bear weight but is only able to ambulate a very short distance before the pain becomes severe. He has not had any fevers. Tolerating current antibiotics. No reports of shortness of breath but intermittent he requires a small amount of oxygen. - Patient Data Vitals - Most Recent: Last Vital Signs Temp 36.7 C 03/02/18 07:30 Pulse 80 03/02/18 08:34 Resp 22 H 03/02/18 07:30 BP 121/75 03/02/18 08:34 Pulse Ox 89 L 03/02/18 07:30 Weight - Most Recent: 106.594 kg I&O - Last 24 Hours: Intake & Output 03/01/18 03/02/18 03/02/18 22:59 06:59 14:59 Intake Total 250 240 Output Total 300 Balance 250 -300 240 Luiz Results Last 24 Hours: Microbiology 02/27/18 17:49 Anaerobic Culture - Final Knee, Right NO GROWTH AFTER 3 DAYS 02/26/18 18:35 Gram Stain - Final Joint / Synovial Fluid - Knee, Right Body Fluid Culture - Final NO GROWTH AFTER 3 DAYS Anaerobic Culture - Final NO GROWTH AFTER 3 DAYS 02/27/18 17:49 Gram Stain - Final Knee, Right Wound Culture - Preliminary NO GROWTH AFTER 2 DAYS 02/26/18 18:35 Gram Stain - Final Knee, Right Wound Culture - Final NO GROWTH AFTER 3 DAYS 02/26/18 18:25 Aerobic Blood Culture - Preliminary Blood - Arm, Right NO GROWTH AFTER 3 DAYS Anaerobic Blood Culture - Preliminary NO GROWTH AFTER 3 DAYS 02/26/18 18:15 Aerobic Blood Culture - Preliminary Blood - Venous - Iv Start NO GROWTH AFTER 3 DAYS Anaerobic Blood Culture - Preliminary NO GROWTH AFTER 3 DAYS Med Orders - Current: Current Medications Acetaminophen (Tylenol) 650 mg PO Q4H PRN PRN Reason: Pain/Fever Last Admin: 03/02/18 05:40 Dose: 650 mg Albuterol (Ventolin Hfa) 0 gm INH Q4H PRN PRN Reason: Shortness of Breath Albuterol (Proventil Neb Soln) 2.5 mg NEB Q4H PRN PRN Reason: Shortness of Breath Albuterol/Ipratropium (Duoneb 3.0-0.5 Mg/3 Ml) 3 ml NEB QIDRT REPLACED BY [facility] Last Admin: 03/02/18 07:17 Dose: 3 ml Aspirin (Aspirin) 81 mg PO DAILY [facility]PL[facility]ED BY [facility] Last Admin: 03/02/18 08:35 Dose: 81 mg Clopidogrel Bisulfate (Plavix) 75 mg PO DAILY [facility]PL[facility]ED BY [facility] Last Admin: 03/02/18 08:35 Dose: 75 mg Docusate Sodium (Colace) 100 mg PO BID PRN PRN Reason: Constipation Last Admin: 03/01/18 21:03 Dose: 100 mg Gabapentin (Neurontin) 200 mg PO TID REPLACED BY [facility] Last Admin: 03/02/18 08:35 Dose: 200 mg Hydroxyzine HCl (Atarax) 50 mg PO Q6H PRN PRN Reason: Pain Last Admin: 02/28/18 10:44 Dose: 50 mg Vancomycin HCl 1.5 gm/ Sodium (Chloride) 250 mls @ 165 mls/hr IV Q12H REPLACED BY [facility] Last Admin: 03/01/18 21:00 Dose: 165 mls/hr Metoprolol Tartrate (Lopressor) 50 mg PO BID REPLACED BY [facility] Last Admin: 03/02/18 08:34 Dose: 50 mg Morphine Sulfate (Morphine) 2 mg IVPUSH Q2H PRN PRN Reason: Pain Last Admin: 03/01/18 22:27 Dose: 2 mg Naloxone HCl (Narcan) 0.1 mg IVPUSH ONETIME PRN PRN Reason: Oversedation Ondansetron HCl (Zofran) 8 mg IVPUSH Q6H PRN PRN Reason: Nausea/Vomiting Oxycodone HCl (Oxycodone) 10 mg PO Q4H PRN PRN Reason: Pain Last Admin: 03/02/18 05:40 Dose: 10 mg Pantoprazole Sodium (Protonix) 40 mg PO DAILY@0730 [facility]PL[facility]ED [facility] Last Admin: 03/02/18 07:41 Dose: 40 mg Senna (Senna) 8.6 mg PO BID PRN PRN Reason: Constipation Last Admin: 03/01/18 21:02 Dose: 8.6 mg Simvastatin (Zocor) 40 mg PO BEDTIME REPLACED BY [facility] Last Admin: 03/01/18 20:59 Dose: 40 mg Sodium Chloride (Saline Flush) 10 ml FLUSH ASDIRECTED PRN PRN Reason: Keep Vein Open Last Admin: 02/26/18 18:24 Dose: 10 ml Tizanidine HCl (Zanaflex) 4 mg PO Q6H PRN PRN Reason: MUSCLE SPASM Tramadol HCl (Ultram) 100 mg PO Q4H PRN PRN Reason: Pain Last Admin: 03/01/18 09:44 Dose: 100 mg Zolpidem Tartrate (Ambien) 5 mg PO BEDTIME PRN PRN Reason: Insomnia Discontinued Medications Albuterol/Ipratropium (Duoneb 3.0-0.5 Mg/3 Ml) 3 ml NEB ONETIME ONE Stop: 02/27/18 16:36 Last Admin: 02/27/18 16:40 Dose: 3 ml Albuterol/Ipratropium (Duoneb 3.0-0.5 Mg/3 Ml) Confirm Administered Dose 3 ml .ROUTE .STK-MED ONE Stop: 02/27/18 16:37 Last Admin: 02/27/18 19:24 Dose: Not Given Dexamethasone (Dexamethasone) Confirm Administered Dose 4 mg .ROUTE .STK-MED ONE Stop: 02/27/18 14:30 Fentanyl (Sublimaze) 50 mcg IVPUSH ONETIME ONE Stop: 02/26/18 18:13 Last Admin: 02/26/18 18:18 Dose: 50 mcg Fentanyl (Sublimaze) Confirm Administered Dose 250 mcg .ROUTE .STK-MED ONE Stop: 02/27/18 14:29 Fentanyl (Sublimaze) Confirm Administered Dose 100 mcg .ROUTE .STK-MED ONE Stop: 02/27/18 17:58 Gentamicin Sulfate (Gentamicin) Confirm Administered Dose 240 mg .ROUTE .STK- MED ONE Stop: 02/27/18 14:27 Glycopyrrolate (Robinul) Confirm Administered Dose 1 mg .ROUTE .STK-MED ONE Stop: 02/27/18 14:30 Hydroxyzine HCl (Vistaril) 50 mg IM Q6H [facility] Last Admin: 02/27/18 08:58 Dose: Not Given Hydroxyzine HCl (Vistaril) 50 mg IM Q6H [facility] Last Admin: 02/27/18 18:39 Dose: 50 mg Lactated Ringer's (Ringers, Lactated) 1,000 mls @ 125 mls/hr IV BOLUS ONE Stop: 02/27/18 02:09 Last Admin: 02/26/18 18:22 Dose: 125 mls/hr Cefazolin Sodium 2 gm/ Sodium (Chloride) 50 mls @ 100 mls/hr IV Q12H REPLACED BY [facility] Last Admin: 02/26/18 18:38 Dose: 100 mls/hr Cefazolin Sodium 2 gm/ Sodium (Chloride) 50 mls @ 100 mls/hr IV Q8H REPLACED BY [facility] Last Admin: 02/26/18 21:33 Dose: Not Given Cefazolin Sodium 2 gm/ Sodium (Chloride) 50 mls @ 100 mls/hr IV Q8H REPLACED BY [facility] Last Admin: 02/27/18 02:35 Dose: 100 mls/hr Cefazolin Sodium/Dextrose 2 gm (/ Premix) 50 mls @ 100 mls/hr IV Q8H REPLACED BY [facility] Last Admin: 02/28/18 12:49 Dose: 100 mls/hr Lactated Ringer's (Ringers, Lactated) Confirm Administered Dose 1,000 mls @ as directed .ROUTE .STK-MED ONE Stop: 02/27/18 17:22 Lactated Ringer's (Ringers, Lactated) 1,000 mls @ 75 mls/hr IV ASDIRECTED REPLACED BY [facility] Last Admin: 03/01/18 07:22 Dose: 75 mls/hr Meperidine HCl (Demerol) Confirm Administered Dose 100 mg .ROUTE .STK-MED ONE Stop: 02/27/18 18:54 Last Admin: 02/27/18 19:54 Dose: Not Given Meperidine HCl (Demerol) 100 mg IM ONETIME ONE Stop: 02/27/18 18:31 Last Admin: 02/28/18 08:50 Dose: Not Given Morphine Sulfate (Morphine) 30 mg PO Q4H PRN PRN Reason: Pain Last Admin: 03/01/18 10:40 Dose: 30 mg Neostigmine Methylsulfate (Neostigmine) Confirm Administered Dose 5 mg .ROUTE .STK-MED ONE Stop: 02/27/18 14:30 Non-Formulary Medication (Simvastatin [Zocor]) 40 mg PO BEDTIME REPLACED BY [facility] Last Admin: 02/26/18 20:30 Dose: Not Given Ondansetron HCl (Zofran) Confirm Administered Dose 4 mg .ROUTE .STK-MED ONE Stop: 02/27/18 14:30 Oxycodone/Acetaminophen (Percocet 325-5 Mg) 2 tab PO Q4H PRN PRN Reason: Pain Last Admin: 03/01/18 05:17 Dose: 2 tab Pantoprazole Sodium (Protonix) 40 mg PO DAILY [facility] Last Admin: 02/27/18 14:32 Dose: Not Given Propofol (Diprivan 20 Ml) Confirm Administered Dose 200 mg .ROUTE .STK-MED ONE Stop: 02/27/18 14:30 Rocuronium [place] (Zemuron) Confirm Administered Dose 50 mg .ROUTE .STK-MED ONE Stop: 02/27/18 14:30 Simvastatin (Zocor) Confirm Administered Dose 40 mg .ROUTE .STK-MED ONE Stop: 02/26/18 20:14 Last Admin: 02/26/18 20:28 Dose: 40 mg Succinylcholine Chloride (Quelicin) Confirm Administered Dose 200 mg .ROUTE .STK -MED ONE Stop: 02/27/18 14:30 Tizanidine HCl (Zanaflex) 2 mg PO Q6H PRN PRN Reason: MUSCLE SPASM Last Admin: 03/01/18 10:40 Dose: 2 mg Tizanidine HCl (Zanaflex) 2 mg PO ONETIME ONE Stop: 03/01/18 13:01 Last Admin: 03/01/18 12:53 Dose: 2 mg Vancomycin HCl (Vancomycin) 0 gm IV .PHARMACY TO DOSE [facility] Stop: 02/28/18 14:00 - Exam Quality Assessment: No: Supplemental Oxygen General: Alert, Oriented, Cooperative, No Acute Distress Neck: Supple Lungs: Normal Respiratory Effort GI/Abdominal Exam: Soft, No Distention Extremities: Pedal Edema (right foot), Other (Right thigh swelling better. Dry intact dressing over right knee) Skin: Warm, Dry Psy/Mental Status: Alert, Normal Affect - Problem List Review Problem List Initiated/Reviewed/Updated: Yes - My Orders Last 24 Hours: My Active Orders 03/01/18 09:00 Aspirin 81 mg PO DAILY Clopidogrel [Plavix] 75 mg PO DAILY 03/01/18 10:05 Acetaminophen [Tylenol] 650 mg PO Q4H PRN 03/01/18 11:00 Convert IV to Saline Lock [OM.PC] Routine 03/01/18 12:10 oxyCODONE 10 mg PO Q4H PRN tiZANidine [Zanaflex] 4 mg PO Q6H PRN 03/02/18 09:30 BASIC METABOLIC PANEL,BMP [CHEM] Routine CBC W/O DIFF,HEMOGRAM [HEME] Routine (1) VANCOMYCIN TROUGH [CHEM] Routine - Plan Plan:: ASSESSMENT AND PLAN Suspected septic arthritis, right knee - increased pain, redness and swelling raising concern for infection. Pain is a little better and he is able to bear a small amount of weight but still only able to ambulate a very short distance before developing severe pain. Tolerating antibiotics. Vancomycin dosing adjusted today based on trough level. -Postoperative cares per orthopedic team -Continue vancomycin, anticipate 3 weeks of therapy -Agree with PICC line placement for long-term antibiotics -Pain control -Physical therapy Hypoxic respiratory failure - history of COPD. No evidence for infection or acute exacerbation. Off oxygen as of this morning -Supplement oxygen as needed -Scheduled and as needed nebulizers -Increase activity as tolerated Admission justification - patient will be transitioned to inpatient status with septic arthritis requiring additional IV antibiotics. He is not safe for outpatient management at this time with his very limited ability to bear weight. Disposition - I would anticipate he will be able to be discharged home in the next few days, possibly tomorrow if stable overnight Angus Bustamante M.D.
[2018-03-02] MEDS: Vancomycin 1.7 GM in Sodium Chloride 0.9% 250 ML IV SCH ×2 (11:08→22:47)
[2018-03-02] MEDS: Morphine 2 MG/ML Syringe IVPUSH PRN ×2 (11:09→21:33)
[2018-03-02] MEDS: traMADol 50 MG Tab PO PRN (12:46)
[2018-03-02] MEDS: Furosemide 40 MG Tab PO SCH (13:36)
[2018-03-02] MEDS: Docusate Sodium 100 MG Cap PO PRN (15:38)
[2018-03-02] MEDS: Sennosides 8.6 MG Tab PO PRN (15:38)
[2018-03-02] MEDS: Simvastatin 20 MG Tab PO SCH (20:31)
[2018-03-03] MEDS: oxyCODONE 5 MG Tab PO PRN ×5 (00:32→20:05)
[2018-03-03] MEDS: Acetaminophen 325 MG Tab PO PRN ×3 (00:33→15:28)
[2018-03-03] MEDS: Morphine 2 MG/ML Syringe IVPUSH PRN ×2 (03:44→19:14)
[2018-03-03] MEDS: Albuterol/Ipratropium 3.0-0.5 MG/3 ML Neb Soln NEB SCH ×6 (07:19→22:12)
[2018-03-03] MEDS: Pantoprazole 40 MG Tab.CR PO SCH (08:16)
[2018-03-03] MEDS: Furosemide 40 MG Tab PO SCH (08:16)
[2018-03-03] MEDS: Aspirin 81 MG Tab.Chew PO SCH (08:16)
[2018-03-03] MEDS: Gabapentin 100 MG Cap PO SCH ×3 (08:17→20:06)
[2018-03-03] MEDS: Clopidogrel 75 MG Tab PO SCH (08:17)
[2018-03-03] MEDS: Metoprolol Tartrate 50 MG Tab PO SCH ×2 (08:19→20:07)
--- NOTE | 2018-03-03 09:34 | PCM.PN ---
- General Info Date of Service: 03/03/18 Functional Status: Reports: Pain Controlled, Tolerating Diet, Ambulating - Review of Systems General: Denies: Fever Musculoskeletal: Reports: Leg Pain (right thigh ), Joint Pain (right knee) Systems Review Comment:: No acute events overnight. Patient reports moderate pain at this time. He is concerned about the swelling in his thigh which has persisted. Swelling in his foot is better today but not resolved. He has been ambulating short distances and doing a little better each day. CT scan of the thigh today did not show acute findings. - Patient Data Vitals - Most Recent: Last Vital Signs Temp 36.7 C 03/03/18 08:00 Pulse 74 03/03/18 08:19 Resp 18 03/03/18 08:00 BP 118/68 03/03/18 08:19 Pulse Ox 93 L 03/03/18 08:00 Weight - Most Recent: 106.594 kg I&O - Last 24 Hours: Intake & Output 03/02/18 03/03/18 03/03/18 22:59 06:59 14:59 Intake Total 490 240 240 Balance 490 240 240 Lab Results Last 24 Hours: Laboratory Results - last 24 hr 03/02/18 03/02/18 Range/Units 09:30 09:30 WBC 8.6 (4.5-11.0) K/uL RBC 3.60 L (4.30-5.90) M/uL Hgb 10.5 L D (12.0-15.0) g/dL Hct 33.0 L (40.0-54.0) % MCV 92 (80-98) fL MCH 29 (27-31) pg MCHC 32 (32-36) % Plt Count 191 (150-400) K/uL Sodium 141 (140-148) mmol/L Potassium 3.9 (3.6-5.2) mmol/L Chloride 104 (100-108) mmol/L Carbon Dioxide 31 (21-32) mmol/L Anion Gap 5.9 (5.0-14.0) mmol/L BUN 9 (7-18) mg/dL Creatinine 1.1 (0.8-1.3) mg/dL Est Cr Clr Drug Dosing 71.01 mL/min Estimated GFR (MDRD) > 60 (>60) Glucose 140 H (74-106) mg/dL Calcium 8.3 L (8.5-10.1) mg/dL Vancomycin Trough 14.1 (10.0-20.0) ug/mL Luiz Results Last 24 Hours: Microbiology 02/27/18 17:49 Gram Stain - Final Knee, Right Wound Culture - Final NO GROWTH AFTER 3 DAYS 02/26/18 18:25 Aerobic Blood Culture - Preliminary Blood - Arm, Right NO GROWTH AFTER 4 DAYS Anaerobic Blood Culture - Preliminary NO GROWTH AFTER 4 DAYS 02/26/18 18:15 Aerobic Blood Culture - Preliminary Blood - Venous - Iv Start NO GROWTH AFTER 4 DAYS Anaerobic Blood Culture - Preliminary NO GROWTH AFTER 4 DAYS 02/27/18 17:49 Anaerobic Culture - Final Knee, Right NO GROWTH AFTER 3 DAYS 02/26/18 18:35 Gram Stain - Final Joint / Synovial Fluid - Knee, Right Body Fluid Culture - Final NO GROWTH AFTER 3 DAYS Anaerobic Culture - Final NO GROWTH AFTER 3 DAYS 02/26/18 18:35 Gram Stain - Final Knee, Right Wound Culture - Final NO GROWTH AFTER 3 DAYS Med Orders - Current: Current Medications Acetaminophen (Tylenol) 650 mg PO Q4H PRN PRN Reason: Pain/Fever Last Admin: 03/03/18 00:33 Dose: 650 mg Albuterol (Ventolin Hfa) 0 gm INH Q4H PRN PRN Reason: Shortness of Breath Albuterol (Proventil Neb Soln) 2.5 mg NEB Q4H PRN PRN Reason: Shortness of Breath Albuterol/Ipratropium (Duoneb 3.0-0.5 Mg/3 Ml) 3 ml NEB QIDRT [facility] Last Admin: 03/03/18 07:19 Dose: Not Given Aspirin (Aspirin) 81 mg PO DAILY [facility] Last Admin: 03/03/18 08:16 Dose: 81 mg Clopidogrel Bisulfate (Plavix) 75 mg PO DAILY [facility] Last Admin: 03/03/18 08:17 Dose: 75 mg Docusate Sodium (Colace) 100 mg PO BID PRN PRN Reason: Constipation Last Admin: 03/02/18 15:38 Dose: 100 mg Furosemide (Lasix) 40 mg PO DAILY [facility] Last Admin: 03/03/18 08:16 Dose: 40 mg Gabapentin (Neurontin) 200 mg PO TID [facility] Last Admin: 03/03/18 08:17 Dose: 200 mg Hydroxyzine HCl (Atarax) 50 mg PO Q6H PRN PRN Reason: Pain Last Admin: 02/28/18 10:44 Dose: 50 mg Vancomycin HCl 1.7 gm/ Sodium (Chloride) 250 mls @ 165 mls/hr IV Q12H [facility] Last Admin: 03/02/18 22:47 Dose: 165 mls/hr Metoprolol Tartrate (Lopressor) 50 mg PO BID [facility] Last Admin: 03/03/18 08:19 Dose: 50 mg Morphine Sulfate (Morphine) 2 mg IVPUSH Q2H PRN PRN Reason: Pain Last Admin: 03/03/18 03:44 Dose: 2 mg Naloxone HCl (Narcan) 0.1 mg IVPUSH ONETIME PRN PRN Reason: Oversedation Ondansetron HCl (Zofran) 8 mg IVPUSH Q6H PRN PRN Reason: Nausea/Vomiting Oxycodone HCl (Oxycodone) 10 mg PO Q4H PRN PRN Reason: Pain Last Admin: 03/03/18 05:58 Dose: 10 mg Pantoprazole Sodium (Protonix) 40 mg PO DAILY@0730 [facility] Last Admin: 03/03/18 08:16 Dose: 40 mg Senna (Senna) 8.6 mg PO BID PRN PRN Reason: Constipation Last Admin: 03/02/18 15:38 Dose: 8.6 mg Simvastatin (Zocor) 40 mg PO BEDTIME [facility] Last Admin: 03/02/18 20:31 Dose: 40 mg Sodium Chloride (Saline Flush) 10 ml FLUSH ASDIRECTED PRN PRN Reason: Keep Vein Open Last Admin: 02/26/18 18:24 Dose: 10 ml Tizanidine HCl (Zanaflex) 4 mg PO Q6H PRN PRN Reason: MUSCLE SPASM Tramadol HCl (Ultram) 100 mg PO Q4H PRN PRN Reason: Pain Last Admin: 03/02/18 12:46 Dose: 100 mg Zolpidem Tartrate (Ambien) 5 mg PO BEDTIME PRN PRN Reason: Insomnia Discontinued Medications Albuterol/Ipratropium (Duoneb 3.0-0.5 Mg/3 Ml) 3 ml NEB ONETIME ONE Stop: 02/27/18 16:36 Last Admin: 02/27/18 16:40 Dose: 3 ml Albuterol/Ipratropium (Duoneb 3.0-0.5 Mg/3 Ml) Confirm Administered Dose 3 ml .ROUTE .STK-MED ONE Stop: 02/27/18 16:37 Last Admin: 02/27/18 19:24 Dose: Not Given Dexamethasone (Dexamethasone) Confirm Administered Dose 4 mg .ROUTE .STK-MED ONE Stop: 02/27/18 14:30 Fentanyl (Sublimaze) 50 mcg IVPUSH ONETIME ONE Stop: 02/26/18 18:13 Last Admin: 02/26/18 18:18 Dose: 50 mcg Fentanyl (Sublimaze) Confirm Administered Dose 250 mcg .ROUTE .STK-MED ONE Stop: 02/27/18 14:29 Fentanyl (Sublimaze) Confirm Administered Dose 100 mcg .ROUTE .STK-MED ONE Stop: 02/27/18 17:58 Gentamicin Sulfate (Gentamicin) Confirm Administered Dose 240 mg .ROUTE .STK- MED ONE Stop: 02/27/18 14:27 Glycopyrrolate (Robinul) Confirm Administered Dose 1 mg .ROUTE .STK-MED ONE Stop: 02/27/18 14:30 Hydroxyzine HCl (Vistaril) 50 mg IM Q6H [facility] Last Admin: 02/27/18 08:58 Dose: Not Given Hydroxyzine HCl (Vistaril) 50 mg IM Q6H [facility] Last Admin: 02/27/18 18:39 Dose: 50 mg Lactated Ringer's (Ringers, Lactated) 1,000 mls @ 125 mls/hr IV BOLUS ONE Stop: 02/27/18 02:09 Last Admin: 02/26/18 18:22 Dose: 125 mls/hr Cefazolin Sodium 2 gm/ Sodium (Chloride) 50 mls @ 100 mls/hr IV Q12H [facility] Last Admin: 02/26/18 18:38 Dose: 100 mls/hr Cefazolin Sodium 2 gm/ Sodium (Chloride) 50 mls @ 100 mls/hr IV Q8H [facility] Last Admin: 02/26/18 21:33 Dose: Not Given Cefazolin Sodium 2 gm/ Sodium (Chloride) 50 mls @ 100 mls/hr IV Q8H [facility] Last Admin: 02/27/18 02:35 Dose: 100 mls/hr Cefazolin Sodium/Dextrose 2 gm (/ Premix) 50 mls @ 100 mls/hr IV Q8H [facility] Last Admin: 02/28/18 12:49 Dose: 100 mls/hr Lactated Ringer's (Ringers, Lactated) Confirm Administered Dose 1,000 mls @ as directed .ROUTE .STK-MED ONE Stop: 02/27/18 17:22 Lactated Ringer's (Ringers, Lactated) 1,000 mls @ 75 mls/hr IV ASDIRECTED [facility] Last Admin: 03/01/18 07:22 Dose: 75 mls/hr Vancomycin HCl 1.5 gm/ Sodium (Chloride) 250 mls @ 165 mls/hr IV Q12H [facility] Last Admin: 03/01/18 21:00 Dose: 165 mls/hr Meperidine HCl (Demerol) Confirm Administered Dose 100 mg .ROUTE .STK-MED ONE Stop: 02/27/18 18:54 Last Admin: 02/27/18 19:54 Dose: Not Given Meperidine HCl (Demerol) 100 mg IM ONETIME ONE Stop: 02/27/18 18:31 Last Admin: 02/28/18 08:50 Dose: Not Given Morphine Sulfate (Morphine) 30 mg PO Q4H PRN PRN Reason: Pain Last Admin: 03/01/18 10:40 Dose: 30 mg Neostigmine Methylsulfate (Neostigmine) Confirm Administered Dose 5 mg .ROUTE .STK-MED ONE Stop: 02/27/18 14:30 Non-Formulary Medication (Simvastatin [Zocor]) 40 mg PO BEDTIME [facility] Last Admin: 02/26/18 20:30 Dose: Not Given Ondansetron HCl (Zofran) Confirm Administered Dose 4 mg .ROUTE .STK-MED ONE Stop: 02/27/18 14:30 Oxycodone/Acetaminophen (Percocet 325-5 Mg) 2 tab PO Q4H PRN PRN Reason: Pain Last Admin: 03/01/18 05:17 Dose: 2 tab Pantoprazole Sodium (Protonix) 40 mg PO DAILY [facility] Last Admin: 02/27/18 14:32 Dose: Not Given Propofol (Diprivan 20 Ml) Confirm Administered Dose 200 mg .ROUTE .STK-MED ONE Stop: 02/27/18 14:30 Rocuronium [place] (Zemuron) Confirm Administered Dose 50 mg .ROUTE .STK-MED ONE Stop: 02/27/18 14:30 Simvastatin (Zocor) Confirm Administered Dose 40 mg .ROUTE .STK-MED ONE Stop: 02/26/18 20:14 Last Admin: 02/26/18 20:28 Dose: 40 mg Succinylcholine Chloride (Quelicin) Confirm Administered Dose 200 mg .ROUTE .STK -MED ONE Stop: 02/27/18 14:30 Tizanidine HCl (Zanaflex) 2 mg PO Q6H PRN PRN Reason: MUSCLE SPASM Last Admin: 03/01/18 10:40 Dose: 2 mg Tizanidine HCl (Zanaflex) 2 mg PO ONETIME ONE Stop: 03/01/18 13:01 Last Admin: 03/01/18 12:53 Dose: 2 mg Vancomycin HCl (Vancomycin) 0 gm IV .PHARMACY TO DOSE [facility] Stop: 02/28/18 14:00 - Exam Quality Assessment: Supplemental Oxygen General: Alert, Oriented, Cooperative, No Acute Distress Neck: Supple Lungs: Clear to Auscultation, Normal Respiratory Effort Cardiovascular: Regular Rate, Regular Rhythm GI/Abdominal Exam: No Distention Extremities: Pedal Edema (mild right foot ), Other (swelling of right thigh. No warmth but anterior thigh is ttp ) Skin: Warm, Dry Wound/Incisions: Healing Well, Dressing Dry and Intact Psy/Mental Status: Alert, Normal Affect - Problem List Review Problem List Initiated/Reviewed/Updated: Yes - My Orders Last 24 Hours: My Active Orders 03/02/18 13:00 Furosemide [Lasix] 40 mg PO DAILY 03/03/18 09:29 Lower Extremity w Cont Rt [CT] Routine - Plan Plan:: ASSESSMENT AND PLAN Suspected septic arthritis, right knee - increased pain, redness and swelling raising concern for infection. Pain slowly improving each day. CT of the thigh did not show acute findings. -Postoperative cares per orthopedic team -Continue vancomycin, anticipate 3 weeks of therapy -Agree with PICC line placement for long-term antibiotics -Pain control -Physical therapy Hypoxic respiratory failure - history of COPD. No evidence for infection or acute exacerbation. Using a small amount of oxygen off and on. Hopefully will improve with increased ambulation. -Supplement oxygen as needed -Scheduled and as needed nebulizers -Inspiratory spirometer -Increase activity as tolerated Admission justification - patient will be transitioned to inpatient status with septic arthritis requiring additional IV antibiotics. He is not safe for outpatient management at this time with his very limited ability to bear weight. Disposition - I would anticipate he will be able to be discharged home in the next few days, likely tomorrow if stable overnight. His hospital stay has been prolonged by much lower than expected improvement and slow return to function with significant difficulty bearing weight on his leg. Angus Bustamante M.D.
[2018-03-03] MEDS ORDERED: Sodium Chloride 0.9% 10 ML Syringe FLUSH PRN (09:53)
[2018-03-03] MEDS ORDERED: Iopamidol 612 MG/ML 100 ML Bottle IV PRN (09:53)
[2018-03-03] MEDS: Vancomycin 1.7 GM in Sodium Chloride 0.9% 250 ML IV SCH ×2 (11:38→22:12)
[2018-03-03] MEDS: Simvastatin 20 MG Tab PO SCH (20:06)
[2018-03-04] MEDS: Acetaminophen 325 MG Tab PO PRN ×2 (00:10→04:13)
[2018-03-04] MEDS: oxyCODONE 5 MG Tab PO PRN ×3 (00:10→08:34)
[2018-03-04] MEDS: traMADol 50 MG Tab PO PRN (03:32)
[2018-03-04] MEDS: Albuterol/Ipratropium 3.0-0.5 MG/3 ML Neb Soln NEB SCH ×2 (07:19→11:10)
[2018-03-04] MEDS: Pantoprazole 40 MG Tab.CR PO SCH (07:45)
[2018-03-04] MEDS: Gabapentin 100 MG Cap PO SCH ×2 (09:20→14:26)
[2018-03-04] MEDS: Aspirin 81 MG Tab.Chew PO SCH (09:20)
[2018-03-04] MEDS: Furosemide 40 MG Tab PO SCH (09:20)
[2018-03-04] MEDS: Clopidogrel 75 MG Tab PO SCH (09:21)
[2018-03-04] MEDS: Metoprolol Tartrate 50 MG Tab PO SCH (09:22)
[2018-03-04] MEDS ORDERED: Vancomycin 1.6 GM in Sodium Chloride 0.9% 250 ML IV SCH (11:00)
[2018-03-04] MEDS: hydrOXYzine HCl 25 MG Tab PO PRN (11:07)
[2018-03-04 11:37] VITALS: BP 153/84
--- NOTE | 2018-03-04 12:36 | PCM.DCSUM1 ---
Discharge Summary - Hospital Course Brief History: Mr. 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 - Discharge Data Discharge Date: 03/04/18 Discharge Disposition: Home, W Home Health Agency 06 Condition: Fair - Discharge Diagnosis/Problem(s) (1) Status post incision and drainage SNOMED Code(s): 374875931, 562542352 ICD Code: Z98.890 - OTHER SPECIFIED POSTPROCEDURAL STATES Status: Acute Current Visit: Yes (2) Right knee pain SNOMED Code(s): 62849057 ICD Code: M25.561 - PAIN IN RIGHT KNEE Status: Acute Current Visit: Yes (3) Status post right knee surgery SNOMED Code(s): 528849403 ICD Code: Z98.890 - OTHER SPECIFIED POSTPROCEDURAL STATES Status: Acute Current Visit: No Problem Details: Unicompartmental - Patient Summary/Data Consults: Consultations 02/26/18 18:13 Respiratory Care Assess and Treatment [CONS] Routine Comment: Physician Instructions: Post-Op Pneumonia Prevention 02/28/18 08:18 OT Evaluation and Treatment [CONS] Routine Please Evaluate and Treat. OT Reason for Consult: Strengthening This query below is only for informational purposes and is not editable. Admission Diagnosis/Problem: Knee pain PT Evaluation and Treatment [CONS] Routine Please Evaluate and Treat. PT Reason for Consult: Strengthening This query below is only for informational purposes and is not editable. Admission Diagnosis/Problem: Knee pain Hospital Course: Mr. Hill is a 67-year-old gentleman who was admitted to the hospital by Dr. Suresh Alvarez for further evaluation and management of septic arthritis. Mr. Hill had undergone total right knee arthroplasty approximately one month prior to this admission. Recent postoperative course of been complicated by increased swelling erythema and pain in the knee as well as right lower leg and thigh. After admission he was taken to the operating room for IND of the joint and was placed on IV antibiotic therapy with vancomycin. Blood cultures were obtained as well as cultures from the time of surgery. All of these cultures remain negative throughout his hospital stay. Over the course of hospitalization pain gradually improved with improvement in swelling and he was able to ambulate short distances with use of a walker. Current plan is to discharge to home with a 3 week course of IV vancomycin. Home care services will be arranged and home pharmacy will be also arranged to provide IV vancomycin and monitor vancomycin levels. Follow-up appointment will be scheduled with Dr. Suresh Alvarez in one week. Activity will be as tolerated and he will resume usual diet. - Patient Instructions Diet: Low Sodium Activity: As Tolerated Other/Special Instructions: Home care after discharge to aid with home IV antibiotic therapy. Referral to outpatient pharmacy services to provide vancomycin and monitor levels. Follow-up appointment with Dr. Alvarez as previously scheduled - Discharge Plan Prescriptions/Med Rec: oxyCODONE 10 mg PO Q4H PRN #40 tablet PRN Reason: Pain Vancomycin 1.6 gm IV Q12H #42 sdv Home Medications: Home Meds Clopidogrel [Plavix] 75 mg PO DAILY 07/05/17 [History] Albuterol Sulfate [Ventolin Hfa] 2 puff INH Q4HR PRN 10/06/17 [History] Metoprolol Tartrate 50 tab PO BID 10/06/17 [History] Albuterol/Ipratropium [DuoNeb 3.0-0.5 MG/3 ML] 1 unit INH Q4H 11/26/17 [History] Simvastatin [Zocor] 40 mg PO BEDTIME 11/26/17 [History] Trelegy Ellipta 1 puff INH DAILY 01/30/18 [History] Aspirin 81 mg PO DAILY 02/11/18 [History] Gabapentin [Neurontin] 200 mg PO TID 02/25/18 [History] Furosemide 40 mg PO DAILY 03/02/18 [History] Vancomycin 1.6 gm IV Q12H #42 sdv 03/04/18 [Rx] oxyCODONE 10 mg PO Q4H PRN #40 tablet 03/04/18 [Rx] Referrals: Edmundo Alvarez DO [Physician] - 03/11/18 8:30 am - Discharge Summary/Plan Comment DC Time >30 min.: No - Patient Data Vitals - Most Recent: Last Vital Signs Temp 97.6 F 03/04/18 11:00 Pulse 74 03/04/18 11:11 Resp 20 03/04/18 11:00 BP 153/84 H 03/04/18 11:00 Pulse Ox 93 L 03/04/18 11:11 Weight - Most Recent: 234 lb 15.992 oz I&O - Last 24 hours: Intake & Output 03/03/18 03/04/18 03/04/18 22:59 06:59 14:59 Intake Total 250 250 Balance 250 250 Lab Results - Last 24 hrs: Laboratory Results - last 24 hr 03/04/18 03/04/18 03/04/18 Range/Units 05:53 05:53 10:29 WBC 6.8 (4.5-11.0) K/uL RBC 3.61 L (4.30-5.90) M/uL Hgb 10.2 L (12.0-15.0) g/dL Hct 32.9 L (40.0-54.0) % MCV 91 (80-98) fL MCH 28 (27-31) pg MCHC 31 L (32-36) % Plt Count 210 (150-400) K/uL Sodium 141 (140-148) mmol/L Potassium 3.9 (3.6-5.2) mmol/L Chloride 104 (100-108) mmol/L Carbon Dioxide 30 (21-32) mmol/L Anion Gap 6.7 (5.0-14.0) mmol/L BUN 13 (7-18) mg/dL Creatinine 1.1 (0.8-1.3) mg/dL Est Cr Clr Drug Dosing 71.01 mL/min Estimated GFR (MDRD) > 60 (>60) Glucose 140 H (74-106) mg/dL Calcium 8.2 L (8.5-10.1) mg/dL Vancomycin Trough 19.1 (10.0-20.0) ug/mL SHON Results - Last 24 hrs: Microbiology 02/26/18 18:25 Aerobic Blood Culture - Final Blood - Arm, Right NO GROWTH AFTER 5 DAYS Anaerobic Blood Culture - Final NO GROWTH AFTER 5 DAYS 02/26/18 18:15 Aerobic Blood Culture - Final Blood - Venous - Iv Start NO GROWTH AFTER 5 DAYS Anaerobic Blood Culture - Final NO GROWTH AFTER 5 DAYS Med Orders - Current: Current Medications Acetaminophen (Tylenol) 650 mg PO Q4H PRN PRN Reason: Pain/Fever Last Admin: 03/04/18 04:13 Dose: 650 mg Albuterol (Ventolin Hfa) 0 gm INH Q4H PRN PRN Reason: Shortness of Breath Albuterol (Proventil Neb Soln) 2.5 mg NEB Q4H PRN PRN Reason: Shortness of Breath Albuterol/Ipratropium (Duoneb 3.0-0.5 Mg/3 Ml) 3 ml NEB QIDRT [facility] Last Admin: 03/04/18 11:10 Dose: 3 ml Aspirin (Aspirin) 81 mg PO DAILY [facility] Last Admin: 03/04/18 09:20 Dose: 81 mg Clopidogrel Bisulfate (Plavix) 75 mg PO DAILY [facility] Last Admin: 03/04/18 09:21 Dose: 75 mg Docusate Sodium (Colace) 100 mg PO BID PRN PRN Reason: Constipation Last Admin: 03/02/18 15:38 Dose: 100 mg Furosemide (Lasix) 40 mg PO DAILY [facility] Last Admin: 03/04/18 09:20 Dose: 40 mg Gabapentin (Neurontin) 200 mg PO TID [facility] Last Admin: 03/04/18 09:20 Dose: 200 mg Hydroxyzine HCl (Atarax) 50 mg PO Q6H PRN PRN Reason: Pain Last Admin: 03/04/18 11:07 Dose: 50 mg Vancomycin HCl 1.6 gm/ Sodium (Chloride) 250 mls @ 167 mls/hr IV Q12H [facility] Last Admin: 03/04/18 11:28 Dose: 167 mls/hr Metoprolol Tartrate (Lopressor) 50 mg PO BID [facility] Last Admin: 03/04/18 09:22 Dose: 50 mg Morphine Sulfate (Morphine) 2 mg IVPUSH Q2H PRN PRN Reason: Pain Last Admin: 03/03/18 19:14 Dose: 2 mg Naloxone HCl (Narcan) 0.1 mg IVPUSH ONETIME PRN PRN Reason: Oversedation Ondansetron HCl (Zofran) 8 mg IVPUSH Q6H PRN PRN Reason: Nausea/Vomiting Oxycodone HCl (Oxycodone) 10 mg PO Q4H PRN PRN Reason: Pain Last Admin: 03/04/18 08:34 Dose: 10 mg Pantoprazole Sodium (Protonix) 40 mg PO DAILY@0730 [facility] Last Admin: 03/04/18 07:45 Dose: 40 mg Senna (Senna) 8.6 mg PO BID PRN PRN Reason: Constipation Last Admin: 03/02/18 15:38 Dose: 8.6 mg Simvastatin (Zocor) 40 mg PO BEDTIME [facility] Last Admin: 03/03/18 20:06 Dose: 40 mg Sodium Chloride (Saline Flush) 10 ml FLUSH ASDIRECTED PRN PRN Reason: Keep Vein Open Last Admin: 02/26/18 18:24 Dose: 10 ml Tizanidine HCl (Zanaflex) 4 mg PO Q6H PRN PRN Reason: MUSCLE SPASM Tramadol HCl (Ultram) 100 mg PO Q4H PRN PRN Reason: Pain Last Admin: 03/04/18 03:32 Dose: 100 mg Zolpidem Tartrate (Ambien) 5 mg PO BEDTIME PRN PRN Reason: Insomnia Discontinued Medications Albuterol/Ipratropium (Duoneb 3.0-0.5 Mg/3 Ml) 3 ml NEB ONETIME ONE Stop: 02/27/18 16:36 Last Admin: 02/27/18 16:40 Dose: 3 ml Albuterol/Ipratropium (Duoneb 3.0-0.5 Mg/3 Ml) Confirm Administered Dose 3 ml .ROUTE .STK-MED ONE Stop: 02/27/18 16:37 Last Admin: 02/27/18 19:24 Dose: Not Given Dexamethasone (Dexamethasone) Confirm Administered Dose 4 mg .ROUTE .STK-MED ONE Stop: 02/27/18 14:30 Fentanyl (Sublimaze) 50 mcg IVPUSH ONETIME ONE Stop: 02/26/18 18:13 Last Admin: 02/26/18 18:18 Dose: 50 mcg Fentanyl (Sublimaze) Confirm Administered Dose 250 mcg .ROUTE .STK-MED ONE Stop: 02/27/18 14:29 Fentanyl (Sublimaze) Confirm Administered Dose 100 mcg .ROUTE .STK-MED ONE Stop: 02/27/18 17:58 Gentamicin Sulfate (Gentamicin) Confirm Administered Dose 240 mg .ROUTE .STK- MED ONE Stop: 02/27/18 14:27 Glycopyrrolate (Robinul) Confirm Administered Dose 1 mg .ROUTE .STK-MED ONE Stop: 02/27/18 14:30 Hydroxyzine HCl (Vistaril) 50 mg IM Q6H [facility] Last Admin: 02/27/18 08:58 Dose: Not Given Hydroxyzine HCl (Vistaril) 50 mg IM Q6H [facility] Last Admin: 02/27/18 18:39 Dose: 50 mg Lactated Ringer's (Ringers, Lactated) 1,000 mls @ 125 mls/hr IV BOLUS ONE Stop: 02/27/18 02:09 Last Admin: 02/26/18 18:22 Dose: 125 mls/hr Cefazolin Sodium 2 gm/ Sodium (Chloride) 50 mls @ 100 mls/hr IV Q12H [facility] Last Admin: 02/26/18 18:38 Dose: 100 mls/hr Cefazolin Sodium 2 gm/ Sodium (Chloride) 50 mls @ 100 mls/hr IV Q8H [facility] Last Admin: 02/26/18 21:33 Dose: Not Given Cefazolin Sodium 2 gm/ Sodium (Chloride) 50 mls @ 100 mls/hr IV Q8H [facility] Last Admin: 02/27/18 02:35 Dose: 100 mls/hr Cefazolin Sodium/Dextrose 2 gm (/ Premix) 50 mls @ 100 mls/hr IV Q8H [facility] Last Admin: 02/28/18 12:49 Dose: 100 mls/hr Lactated Ringer's (Ringers, Lactated) Confirm Administered Dose 1,000 mls @ as directed .ROUTE .STK-MED ONE Stop: 02/27/18 17:22 Lactated Ringer's (Ringers, Lactated) 1,000 mls @ 75 mls/hr IV ASDIRECTED [facility] Last Admin: 03/01/18 07:22 Dose: 75 mls/hr Vancomycin HCl 1.5 gm/ Sodium (Chloride) 250 mls @ 165 mls/hr IV Q12H [facility] Last Admin: 03/01/18 21:00 Dose: 165 mls/hr Vancomycin HCl 1.7 gm/ Sodium (Chloride) 250 mls @ 165 mls/hr IV Q12H [facility] Last Admin: 03/03/18 22:12 Dose: 165 mls/hr Sodium Chloride (Normal Saline) 70 mls @ 3 mls/sec IV ONETIME ONE Stop: 03/03/18 09:54 Last Admin: 03/03/18 18:46 Dose: Not Given Iopamidol (Isovue-300 (61%)) 100 ml IV . DIRECTED PRN PRN Reason: RADIOLOGY EXAM Stop: 03/03/18 16:00 Meperidine HCl (Demerol) Confirm Administered Dose 100 mg .ROUTE .STK-MED ONE Stop: 02/27/18 18:54 Last Admin: 02/27/18 19:54 Dose: Not Given Meperidine HCl (Demerol) 100 mg IM ONETIME ONE Stop: 02/27/18 18:31 Last Admin: 02/28/18 08:50 Dose: Not Given Morphine Sulfate (Morphine) 30 mg PO Q4H PRN PRN Reason: Pain Last Admin: 03/01/18 10:40 Dose: 30 mg Neostigmine Methylsulfate (Neostigmine) Confirm Administered Dose 5 mg .ROUTE .STK-MED ONE Stop: 02/27/18 14:30 Non-Formulary Medication (Simvastatin [Zocor]) 40 mg PO BEDTIME [facility] Last Admin: 02/26/18 20:30 Dose: Not Given Ondansetron HCl (Zofran) Confirm Administered Dose 4 mg .ROUTE .STK-MED ONE Stop: 02/27/18 14:30 Oxycodone/Acetaminophen (Percocet 325-5 Mg) 2 tab PO Q4H PRN PRN Reason: Pain Last Admin: 03/01/18 05:17 Dose: 2 tab Pantoprazole Sodium (Protonix) 40 mg PO DAILY [facility] Last Admin: 02/27/18 14:32 Dose: Not Given Propofol (Diprivan 20 Ml) Confirm Administered Dose 200 mg .ROUTE .STK-MED ONE Stop: 02/27/18 14:30 Rocuronium [place] (Zemuron) Confirm Administered Dose 50 mg .ROUTE .STK-MED ONE Stop: 02/27/18 14:30 Simvastatin (Zocor) Confirm Administered Dose 40 mg .ROUTE .STK-MED ONE Stop: 02/26/18 20:14 Last Admin: 02/26/18 20:28 Dose: 40 mg Sodium Chloride (Saline Flush) 10 ml FLUSH ONETIME PRN PRN Reason: PER RADIOLOGY PROTOCOL Stop: 03/03/18 16:00 Succinylcholine Chloride (Quelicin) Confirm Administered Dose 200 mg .ROUTE .STK -MED ONE Stop: 02/27/18 14:30 Tizanidine HCl (Zanaflex) 2 mg PO Q6H PRN PRN Reason: MUSCLE SPASM Last Admin: 03/01/18 10:40 Dose: 2 mg Tizanidine HCl (Zanaflex) 2 mg PO ONETIME ONE Stop: 03/01/18 13:01 Last Admin: 03/01/18 12:53 Dose: 2 mg Vancomycin HCl (Vancomycin) 0 gm IV .PHARMACY TO DOSE [facility] Stop: 02/28/18 14:00 - Exam Quality Assessment: Reports: DVT Prophylaxis General: Reports: Alert, Oriented, Cooperative, Mild Distress Lungs: Reports: Normal Respiratory Effort, Decreased Breath Sounds. Denies: Rales, Rhonchi, Rub, Wheezing Cardiovascular: Reports: Regular Rate, Regular Rhythm, No Murmurs GI/Abdominal Exam: Soft, Non-Tender, No Organomegaly, No Distention Extremities: Pedal Edema Skin: Reports: Warm, Dry
== END 2018-03-04 14:45 | disposition home health service (06) | DRG 463 ==
LOC: JP.ED 17:26 → JP.MS 18:12 → OBSVTOIN 02-28 16:29
PROVIDERS: ADMIT Orthopaedic Surgery; ATTEND Orthopaedic Surgery
PROC: 0SBC0ZZ Excision of Right Knee Joint, Open Approach (ICD-10-PCS; principal; 2018-02-27)
PROC: 0SPC09Z Removal of Liner from Right Knee Joint, Open Approach (ICD-10-PCS; 2018-02-27)
PROC: 0SUC09Z Supplement Right Knee Joint with Liner, Open Approach (ICD-10-PCS; 2018-02-27)
PROC: 0KDS0ZZ Extraction of Right Lower Leg Muscle, Open Approach (ICD-10-PCS; 2018-02-27)
PROC: 05HY33Z Insertion of Infusion Device into Upper Vein, Percutaneous Approach (ICD-10-PCS; 2018-02-28)
DX: M00.9 Pyogenic arthritis, unspecified (principal); J96.91 Respiratory failure, unspecified with hypoxia; Z98.890 Other specified postprocedural states; I10 Essential (primary) hypertension; J44.9 Chronic obstructive pulmonary disease, unspecified; I25.119 Atherosclerotic heart disease of native coronary artery with unspecified angina pectoris; E78.00 Pure hypercholesterolemia, unspecified; Z79.2 Long term (current) use of antibiotics; M19.90 Unspecified osteoarthritis, unspecified site; M54.9 Dorsalgia, unspecified; G89.29 Other chronic pain; I25.2 Old myocardial infarction; Z95.1 Presence of aortocoronary bypass graft; Z95.5 Presence of coronary angioplasty implant and graft; Z87.891 Personal history of nicotine dependence; Z79.82 Long term (current) use of aspirin; Z88.8 Allergy status to other drugs, medicaments and biological substances; Z96.659 Presence of unspecified artificial knee joint
CPT/HCPCS: 11043; 27334; 27486; 36415; 80053; 83615; 84157; 84560; 85025; 87040 ×2; 87070 ×3; 87075 ×2; 87205 ×3; 89050; 89060; 94640 ×3; 94762; 97110; 97116; 97162; 99284; A9270 ×24; J0330; J0690 ×6; J1100; J1580; J2175; J2270 ×4; J2405; J2704; J2710; J3010 ×3; J3370; J3410 ×3; J7050 ×4; J7120 ×4; J7620 ×3; 73700-26-RT; 73700-RT; 73701-RT; 80048; 80202; 85027; 88305; 97530-GP; 97535-GP; C1751